=== PATIENT | female | born 1975 | race Caucasian/White ===

== ENCOUNTER → 2018-04-29 14:56 | Outpatient (CLI) | payer OTHER, SELFPAY ==
--- NOTE | 2018-04-29 15:02 | BI_ITS ---
MAMMOGRAPHY - BILATERAL SCREENING REASON FOR EXAM: Female, 42 years old. Routine annual screening examination. PERTINENT HISTORY: Mother with breast cancer. Remote left stereotactic breast biopsies. TECHNIQUE: Digital bilateral breast thea (3D mammographic acquisition) in the CC and MLO projections. 2-D mediolateral oblique (MLO) and craniocaudad (CC) views of both breasts were obtained. CAD: Full Field Digital Mammography with Computer Added Detection was performed. COMPARISON: Comparison is made with prior study dated April 19, 2017 and April 15, 2016. FINDINGS: Breast Composition: The breasts are heterogeneously dense, which may obscure small masses. There are no dominant masses or suspicious calcifications. No other significant abnormalities are identified. There has been no significant change since the prior study. BI/SCREENING MAMM (CAD), BILAT IMPRESSION: Stable bilateral screening mammogram. Yearly follow-up mammogram recommended. (A) ASSESSMENT CATEGORY: BIRADS Category 1: Negative. A letter regarding these results will be sent to the patient by the facility within 30 days. Approximately 10% of breast cancers are not detected by mammography. A normal mammogram should not delay biopsy of a clinically suspicious abnormality. [id number] Electronically Signed: Kenny Trinh MD at 7:59 EDT Tel [phone], Service support ,
== END ==
PROVIDERS: Family Provider Family Medicine; PCP Family Medicine; Visit Provider Obstetrics & Gynecology
DX: Z12.31 Encounter for screening mammogram for malignant neoplasm of breast (principal)
CPT/HCPCS: 77063; 77067

== ENCOUNTER → 2018-05-12 10:10 | Outpatient (CLI) | payer OTHER, SELFPAY ==
[2018-05-18 11:45] LABS: HPV Reflexed? NOT INDICATED
== END ==
PROVIDERS: Visit Provider Obstetrics & Gynecology
DX: Z12.4 Encounter for screening for malignant neoplasm of cervix (principal)
CPT/HCPCS: 88175; G0145

== ENCOUNTER → 2019-05-11 16:41 | Outpatient (CLI) | payer OTHER, SELFPAY ==
--- NOTE | 2019-05-11 16:44 | BI_ITS ---
MAMMOGRAPHY - BILATERAL SCREENING REASON FOR EXAM: Female, 43 years old. Routine annual screening examination. PERTINENT HISTORY: Mother with breast cancer. Remote left stereotactic breast biopsy. TECHNIQUE: Digital bilateral breast jess (3D mammographic acquisition) in the CC and MLO projections. 2-D mediolateral oblique (MLO) and craniocaudad (CC) views of both breasts were obtained. CAD: Full Field Digital Mammography with Computer Added Detection was performed. COMPARISON: Comparison is made with prior study dated April 29, 2018 and April 22, 2017. FINDINGS: Breast Composition: The breasts are heterogeneously dense, which may obscure small masses. There are no dominant masses or suspicious calcifications. No other significant abnormalities are identified. There has been no significant change since the prior study. BI/SCREEN MAMM (CAD) W/JESS BILAT IMPRESSION: Stable bilateral screening mammogram. Yearly follow-up mammogram recommended. (A) ASSESSMENT CATEGORY: BIRADS Category 1: Negative. A letter regarding these results will be sent to the patient by the facility within 30 days. Approximately 10% of breast cancers are not detected by mammography. A normal mammogram should not delay biopsy of a clinically suspicious abnormality. [id number] Electronically Signed: Kenny Trinh, at 9:30 EDT , Service support ,
== END ==
PROVIDERS: Referring Provider Obstetrics & Gynecology; Visit Provider Obstetrics & Gynecology
DX: Z12.31 Encounter for screening mammogram for malignant neoplasm of breast (principal)
CPT/HCPCS: 77063; 77067

== ENCOUNTER → 2020-09-27 13:10 | Outpatient (CLI) | payer OTHER, SELFPAY ==
--- NOTE | 2020-09-27 13:18 | BI_ITS ---
MAMMOGRAPHY - BILATERAL SCREENING REASON FOR EXAM: Female, 44 years old. Routine annual screening examination. PERTINENT HISTORY: Mother had breast cancer age 48 patient had left stereotactic breast biopsy 2008 TECHNIQUE: Digital bilateral breast jess (3D mammographic acquisition) in the CC and MLO projections. 2-D mediolateral oblique (MLO) and craniocaudad (CC) views of both breasts were obtained. CAD: Full Field Digital Mammography with Computer Added Detection was performed. COMPARISON: Previous mammograms obtained on 05/11/2019 FINDINGS: Breast Composition: Scattered There are no dominant masses or suspicious calcifications. No other significant abnormalities are identified. BI/SCREEN MAMM (CAD) W/JESS BILAT IMPRESSION: Stable bilateral screening mammogram. Yearly follow-up mammogram recommended. (A) ASSESSMENT CATEGORY: BIRADS Category 1: Negative. A letter regarding these results will be sent to the patient by the facility within 30 days. Approximately 10% of breast cancers are not detected by mammography. A normal mammogram should not delay biopsy of a clinically suspicious abnormality. [id number] Electronically Signed: Ponce Navarro, at 16:58 EST Tel , Service support ,
== END ==
PROVIDERS: Referring Provider Obstetrics & Gynecology; Visit Provider Obstetrics & Gynecology
DX: Z12.31 Encounter for screening mammogram for malignant neoplasm of breast (principal); Z80.3 Family history of malignant neoplasm of breast
CPT/HCPCS: 77063; 77067

== ENCOUNTER → 2020-10-10 14:03 | Outpatient (CLI) | payer OTHER, SELFPAY ==
[2020-10-15 14:02] LABS: HPV Reflexed? NOT INDICATED
== END ==
PROVIDERS: Visit Provider Obstetrics & Gynecology
DX: Z12.4 Encounter for screening for malignant neoplasm of cervix (principal)
CPT/HCPCS: 88175; G0145

== ENCOUNTER 2021-11-13 12:46 | Outpatient (CLI) | payer OTHER, SELFPAY ==
--- NOTE | 2021-11-13 12:49 | BI_ITS ---
MAMMOGRAPHY - BILATERAL SCREENING REASON FOR EXAM: Female, 45 years old. Routine annual screening examination. PERTINENT HISTORY: Mother with breast cancer. Remote left stereotactic breast biopsy. TECHNIQUE: Digital bilateral breast jess (3D mammographic acquisition) in the CC and MLO projections. 2-D mediolateral oblique (MLO) and craniocaudad (CC) views of both breasts were obtained. CAD: Full Field Digital Mammography with Computer Added Detection was performed. COMPARISON: Comparison is made with prior study dated 09/27/2020 and 05/11/2019. FINDINGS: Breast Composition: There are scattered areas of fibroglandular density. There are no dominant masses or suspicious calcifications. No other significant abnormalities are identified. There has been no significant change since the prior study. BI/SCRN MAMM (CAD)W/JESS BILAT IMPRESSION: Stable bilateral screening mammogram. Yearly follow-up mammogram recommended. (A) ASSESSMENT CATEGORY: BIRADS Category 1: Negative. A letter regarding these results will be sent to the patient by the facility within 30 days. Approximately 10% of breast cancers are not detected by mammography. A normal mammogram should not delay biopsy of a clinically suspicious abnormality. [id number] Electronically Signed: Kenny Trinh MD at 13:44 EST , Service support ,
== END 2021-11-13 23:59 | disposition short-term general hospital (02) ==
LOC: OPBI 12:47
PROVIDERS: Referring Provider Obstetrics & Gynecology; Visit Provider Obstetrics & Gynecology
DX: Z12.31 Encounter for screening mammogram for malignant neoplasm of breast (principal)
CPT/HCPCS: 77063; 77067

== ENCOUNTER → 2025-05-14 | Outpatient (CLI) | payer OTHER, SELFPAY ==
--- NOTE | 2025-05-14 11:09 | RAD_ITS ---
PROCEDURE: ABDOMEN SINGLE VIEW 05/14/2025 REASON FOR EXAM: CALCULUS OF LOWER URINARY TRACT TECHNIQUE: 3 frontal views of the abdomen were obtained in order to include the entire abdomen on the study. COMPARISON: None FINDINGS: A small to moderate amount of stool and gas is present throughout a nondistended colon. No free air is seen. Please note however that free air could be obscured on a supine view. If free air is suspected, a lateral decubitus or upright film is recommended. Psoas muscles and renal outlines are partially obscured by overlying bowel gas and fecal material within the colon. There is a 5 mm calcific density identified just inferior to the L3 right transverse process. This could represent a ureteral stone. There is a 3 mm calcific density identified overlying the mid to lower pole of the left kidney. This could represent a renal stone. No abnormal calcific densities are seen in the pelvis. There is subtle irregularity involving the lateral anterior tip of the right 9th rib. This is believed to represent summation artifact. Clinical correlation is recommended. Degenerative changes of both hips are noted. Lumbar spine appears unremarkable. RAD/Abdomen Single View IMPRESSION: There is a 5 mm calcific density identified just inferior to the L3 right trans verse process. This could represent a ureteral stone. There is a 3 mm calcific density identified overlying the mid to lower pole of the left kidney. This could represent a renal stone. Reading Location: [id number]
== END | disposition home or self-care (01) ==
LOC: RAD 10:54
PROVIDERS: Referring Provider Urology; Visit Provider Urology
DX: N21.9 Calculus of lower urinary tract, unspecified (principal)
CPT/HCPCS: 74018

== ENCOUNTER 2025-05-16 12:38 | Day surgery (SDC) | payer OTHER, SELFPAY ==
[2025-05-16] VITALS (9 sets, daily range): BP systolic 108–164; BP diastolic 83–109; PULSE 74–86; RESP 16–18; TEMP 36.3–37.3; O2SAT 96–100; BMI 40.6
--- NOTE | 2025-05-16 12:47 | RAD_ITS ---
EXAM: XR Abdomen, 1 View CLINICAL INDICATION: PRE-OP TECHNIQUE: Frontal supine view of the abdomen/pelvis. COMPARISON: No relevant prior studies available. FINDINGS: GASTROINTESTINAL TRACT: Unremarkable. No dilation. ORGANS: 5 mm calculus over the right renal region. 6 mm calculus of the left renal region. BONES/JOINTS: Unremarkable. No acute fracture. RAD/Abd Inc Decub and/or Erect IMPRESSION: Probable bilateral nephrolithiasis. Reading Location: [facility]
--- NOTE | 2025-05-16 13:48 | PRE.ANES_ITS ---
ASA Classification* ASA Classification ASA Classification: 3 Assessment & Plan Anesthesia* Anesthesia Assessment Anesthesia Assessment: Discussed sedation and/or anesthesia options, risks, benefits, and alternatives with patient/parents/legal guardian/POA. Questions invited. The patient/parents/legal guardian/POA seems to understand and agrees to proceed with anesthesia plan. Reviewed the physical assessment, medical history, allergy history and patient home medications list prior to surgery/procedure/anesthetic and documented any changes. Performed airway and anesthesia risk assessments. Anesthesia Type Anesthesia Type: General History Source History Obtained from:: Patient and Chart Anesthesia Focused Assessment* Temperature: 98.4 F Pulse Rate: 74 Blood Pressure: 136/92 Respiratory Rate: 18 Pulse Ox: 100 Oxygen Delivery Method: Room Air Airway Assessment Mouth opens: 2 cm Mallampati Score: II Teeth Condition: Intact Labs Anesthesia Preop lab: CBC CHEMISTRY COAG Urine Test Negative Negative 05/16/25 13:00 05/16/25 Pre-Assessment Diagnosis/Proposed Procedure Planned Operative Procedure(s): RIGHT ESWL Anesthesia History Anesthesia History - senior occupational therapist: Anesthesia History - senior occupational therapist Hx Hospitalization No 05/14/25 12:15 Any Problems With Anesthesia No 05/14/25 12:15 Cholinesterase deficiency No 05/14/25 12:15 You/Your Family Experience No 05/14/25 12:15 fever (hyperthermia) with Relationship Recent Exposure to Contagious Disease Does patient have nerve No 05/14/25 12:15 stimulator Patient instructed to have device shut off --Does patient have Pacemaker or ICD? When Was Last Pacemaker Check QUESTION #4 FULL TEXT: You/Your Family Experience fever (hyperthermia) with Anesthesia Last Oral Intake Last Oral intake: Last Oral Intake NPO since Meds taken in AM with sips of water? Meds patient instructed to take am of surgery PONV PONV - senior occupational therapist: PONV - senior occupational therapist Female Yes 05/14/25 12:15 HX of Motion Sickness No 05/14/25 12:15 HX of N/V After Surgery No 05/14/25 12:15 Non-Smoker Yes 05/14/25 12:15 Duration of Surgery greater No 05/14/25 12:15 than 60 minutes Number of Risk Factors 2 05/14/25 12:15 PONV Score Moderate Risk 05/14/25 12:15 Respiratory Assessment Respiratory Assessment - senior occupational therapist: Respiratory Tract Infection Hx - senior occupational therapist Hx Respiratory Tract Infection No 05/14/25 12:15 STOP Sleep Apnea STOP Sleep Apnea - senior occupational therapist: STOP Sleep Apnea - senior occupational therapist Hx Hypertension Yes: CONTROLLED ON MED 05/14/25 12:15 Hx Sleep Apnea No 05/14/25 12:15 CPAP BIPAP Do you snore loudly (louder Yes 05/14/25 12:15 than talking or can be heard Do you often feel tired/ No 05/14/25 12:15 fatigued/ sleepy during daytime? Has anyone observed you stop No 05/14/25 12:15 breathing during sleep? STOP Results Positive 05/14/25 12:15 QUESTION #5 FULL TEXT : Do you snore loudly (louder than talking or can be heard through closed doors)? Tobacco Use History Tobacco Use History - senior occupational therapist: Tobacco Use History - senior occupational therapist Tobacco Use Smoking Status Never smoker 05/14/25 12:15 Hx Tobacco Use No 05/14/25 12:15 Years Smoking Packs Smoked per Day Smoking Cessation Date was within the last 15 years Hx Smoking Cessation Date Hx Smoking Cessation Counseling Hematologic Medial History Hematologic Hx - senior occupational therapist: Hematologic Medical Hx - senior oracle dba Hx of Blood Transfusion No 05/14/25 12:15 Hx of Transfusion in last 3 No 05/14/25 12:15 Months Date of Last Transfusion (if within last 3 months) Ever experience any problems No 05/14/25 12:15 with transfusion(s)? Specify any problems Hx of Preganancy in last 3 No 05/14/25 12:15 Months Nurse Filling Out Transfusion VCHRISTIN 05/14/25 12:15 & Questions: Date: 05/14/25 05/14/25 12:15 Time: 12:16 05/14/25 12:15 Patient unable to answer at this time (ie. confused, unrespo /Reproduction History /Reproductive History - senior occupational therapist: /Reproductive Hx- senior occupational therapist Hx Now No 05/14/25 12:15 Gestational Age (in weeks): EDC: Hx Hx Para Hx Section SAB No 05/14/25 12:15 Active Medications Active Medications: Current Medications Generic Name Dose Route Start Last Admin Trade Name Freq PRN Reason Stop Dose Admin Cefazolin Sodium 2 gm/ Sodium 110 mls @ 200 mls/hr 05/16/25 13:35 Chloride IV 05/16/25 14:07 INTRAOP ONE Lactated Ringer's 1,000 mls @ 15 mls/hr 05/16/25 13:00 IV .Q48H [facility] PFSH Medical History (Updated 05/14/25 @ 12:14 by Louann Ryan) Kidney stones Non-smoker Hypertension Home Medications ?Medication ?Instructions ?Recorded ?Last Taken ?Type amlodipine 5 mg tablet 5 mg PO DAILY 05/14/25 Unkno wn History atorvastatin 10 mg tablet 10 mg PO DAILY 05/14/25 Unkn own History cholecalciferol (vitamin D3) 50 50 mcg PO DAILY Unknown History mcg (2,000 unit) capsule oxycodone-acetaminophen 5 mg-325 1 tab PO Q6H PRN PRN pain 05/14/25 Unknown History mg tablet psyllium husk 0.4 gram capsule 0.8 g PO DAILY 05/14/25 Unknown History (Daily Fiber) Allergy/AdvReac Type Severity Reaction Status Date / Time No Known Allergies Allergy Verified 05/16/25 13:49 Surgical History (Updated 05/14/25 @ 12:14 by Louann Ryan) Hx of removal of cyst Hx of section Hx of hernia repair Social History Smoking Status: Never smoker Review of Systems (Anesthesia) ROS Narrative System reviewed and no additional complaints, except as documented.
[2025-05-16] MEDS: Lactated Ringers 1,000 ML 15 ML IV (13:58)
[2025-05-16 14:35] LABS: Internal QC Validated? YES +Cl - CLEAR BKGD; Pregnancy, Urine Negative Negative; Record Kit Lot#,Urine Preg 962302
--- NOTE | 2025-05-16 15:46 | HP.PCM_ITS ---
HPI - General General Date of Service: 05/16/25 Chief Complaint: Right ureteral calculi HPI Narrative GOPAL CHAPPELL, is a 49 F who presents for treatment of a right kidney stone with shockwave lithotripsy and stent placement [facility] Medical History (Updated 05/16/25 @ 15:[address] Neeraj Wilson MD) Kidney stones Non-smoker Hypertension Home Medications ?Medication ?Instructions ?Recorded ?Last Taken ?Type amlodipine 5 mg tablet 5 mg PO DAILY 05/14/25 Unkno wn History atorvastatin 10 mg tablet 10 mg PO DAILY 05/14/25 Unkn own History cholecalciferol (vitamin D3) 50 50 mcg PO DAILY Unknown History mcg (2,000 unit) capsule oxycodone-acetaminophen 5 mg-325 1 tab PO Q6H PRN PRN pain 05/14/25 Unknown History mg tablet psyllium husk 0.4 gram capsule 0.8 g PO DAILY 05/14/25 Unknown History (Daily Fiber) ciprofloxacin HCl 500 mg tablet 500 mg PO BID #6 tabs 05/16/25 Unknown Rx (Cipro) oxycodone 5 mg tablet 5 mg PO Q6H PRN pain 3 days #14 05/16/25 Unknown Rx tabs Allergy/AdvReac Type Severity Reaction Status Date / Time No Known Allergies Allergy Verified 05/16/25 13:49 Surgical History (Updated 05/14/25 @ 12:14 by Louann Ryan) Hx of removal of cyst Hx of section Hx of hernia repair Social History Smoking Status: Never smoker Vital Signs Vital Signs Vital Signs: 05/16/25 13:52 05/16/25 13:52 05/16/25 14:41 Temperature 98.4 F 98.4 F Temperature Source Temporal Pulse Rate 74 74 Respiratory Rate 18 18 Respiratory Pattern Normal Blood Pressure 136/92 H 136/92 H Blood Pressure Mean 106 Blood Pressure Source Monitor Blood Pressure Position Sitting Blood Pressure Location Left Forearm Pulse Ox 100 100 Oxygen Delivery Method Room Air Room Air Weight Weight: 125 kg Body Mass Index (BMI) 40.6 Results Lab / Micro Data Labs: Laboratory Results - last 24 hr 05/16/25 13:00: Urine Test Negative Imaging Radiology Impression Abdomen X-Ray 05/16/25 12:47 IMPRESSION: Probable bilateral nephrolithiasis. Reading Location: [facility]
--- NOTE | 2025-05-16 15:46 | DCINST_ITS ---
Discharge Instructions DC O2, CPAP, BIPAP needs Home O2 Discharge instructions: No Dressing / Incision Discharge Activity: Return to Normal Activity and May Not Drive (while taking narcotic pain medications.) Dressing / Incision Call your doctor if you observe: Fever of 101 or Higher Follow Up Care Please Follow Up With: Neeraj Wilson MD When: Call [phone] for an appointment Test Results: Test results from this visit will be discussed in further detail at your follow- up appointment, if applicable. Discharge Plan Admission Primary Reason for Your Visit: kidney stone Attending Provider: Neeraj Wilson Primary Care Provider: Huy Chaudhari Instructions Print Language: Citizen Of [place] Discharge Orders/Prescriptions Prescriptions: New oxycodone 5 mg tablet 5 mg PO Q6H PRN (Reason: pain) 3 Days Qty: 14 0RF ciprofloxacin HCl [Cipro] 500 mg tablet 500 mg PO BID Qty: 6 0RF Continued atorvastatin 10 mg tablet 10 mg PO DAILY amlodipine 5 mg tablet 5 mg PO DAILY cholecalciferol (vitamin D3) 50 mcg (2,000 unit) capsule 50 mcg PO DAILY psyllium husk [Daily Fiber] 0.4 gram capsule 0.8 g PO DAILY oxycodone-acetaminophen 5-325 mg tablet 1 tab PO Q6H PRN PRN (Reason: pain) Referrals / Follow Up: Neeraj Wilson MD [Med Staff - Active Staff] - Care Physician,No Primary [Non-Staff] - Disposition Disposition (needs filled in before D/C Order can be placed): Home, Self Care
--- NOTE | 2025-05-16 15:47 | PCM.OPRPT ---
Operative Report (Standard) Operative Information Date of Procedure: 05/16/25 Pre-Operative Diagnosis: Right mid ureteral calculi with obstruction Post-Operative Diagnosis: Same Surgery/Procedure Performed: Cystoscopy right stent placement right extracorporeal shockwave lithotripsy semiconductor packages leak tester: No Type of Anesthesia: General RN Documented Start/Stop Times: Operation Date: 05/16/25 14:45 Case Time Into Pre-Op 05/16/25 12:59 Out of Pre-Op 05/16/25 14:43 Anesthesia Start 05/16/25 14:44 Into Room 05/16/25 14:44 Procedure Start 05/16/25 14:55 Procedure Start Time: 14:55 Procedure Stop Time: 15:47 Select all DRAINS/GRAFTS/IMPLANTS that apply: Drains Drain details: right stent Estimated Blood Loss: None Specimen collected: No Description of surgery: Patient presents to the hospital for treatment of a kidney stone with shockwave lithotripsy. In the preoperative area and x-ray was done to confirm the location of the stone. The x-ray was reviewed and the stone location was reviewed. In the preoperative setting I spoke with the patient regarding the treatment of the stone how the treatment would be conducted and the expectations after surgery. The patient understands there is a risk of bleeding and infection. Also discussed the very rare risk of hematoma or damage to the kidney. We also discussed the risk that the shockwave machine will fail to break the stone adequately and that the patient may need other surgical procedures. I also discussed the possibility that the patient may need a stent after the procedure. After reviewing the procedure with the patient, the patient is signed the consent form all the patient's questions were addressed and was taken back to the operating room for treatment of a kidney stone. Patient was taken back to the operating room, the patient was identified by the nursing staff, I identified the side of the treatment and the patient side of treatment had been marked by my initials. The patient underwent general anesthetic and was placed supine on the lithotripter table. I then used fluoroscopy to identify the stone on the right side. I then positioned the patient under the lithotripter and I used triangulation technique to identify the location of the stone and then I made sure that the stone was engaged in the F2 focal point of F2 Donier lithoprior machine. Once the patient was positioned appropriately and the stone was identified and placed in the F2 focal point of the lithotripter machine I then proceeded with shockwave lithotripsy. Then during the procedure we did a cystoscopy and right stent placement to facilitate finding of the stone and also facilitate passing of the fragments the stone was not breaking until we put a stent in. In the beginning the shockwave was delivered at a rate of 90 shocks per minute, anesthesia monitored the EKG for any ectopy. The power was slowly increased to 5 kV and subsequently at the 7 kV. I then proceeded with the treatment with shock wave therapy and around during the treatment to make sure the stone stayed in the F2 focal point during the entire treatment and after 4000 shockwaves were delivered to the stone under fluoroscopic guidance the treatment was completed. The patient was given instructions to call the office to make an a follow-up appointment with an x-ray to evaluate the success of the treatment, patient understands that its possible the stones may need another procedure. At this point the patient's anesthetic was reversed patient was extubated and taken back to the PACU in stable condition. Surgical Findings: Stone in the mid right ureter with treated with shockwave lithotripsy and stent placed Complications Complications: No Admit VTE Documentation VTE Present on Admission: No VTE Mechan Device Prophylaxis: SCD's VTE Pharm Prophylaxis ordered?: No
--- NOTE | 2025-05-16 16:02 | PCM.POST.ANE ---
Anesthesia: Postop Eval I Current Vital Signs Temperature: 99.0 F Pulse Rate: 86 Blood Pressure: 136/83 Respiratory Rate: 18 Pulse Ox: 96 Oxygen Delivery Method: Room Air Assessment Airway patent: Yes Spontaneous unlabored respirations: Yes Mental status: Awake and Calm nausea: No Vomiting: No Anesthesia Complication: No Fluid Hydration Crystalloid volume administer (ml): 900 Total IV fluid infused: 900 Progress Note Anesthesia document: Postop Eval 1 completed: Yes
[2025-05-16] MEDS: Ketorolac 30 MG/ML Syringe IV (16:10)
--- NOTE | 2025-05-16 16:31 | POSTOPAN2_ITS ---
Anesthesia Postop Eval I Sum Postop Eval Completion status Anesthesia document: Postop Eval 1 completed: Yes Anesthesia Postop Eval I Summary Anesthesia Postop Eval I Summary: Anesthesia Postop Eval I: Assessment Summary Airway patent Yes 05/16/25 16:02 FABRICS AND MATERIAL CUTTER.[email or web address] Spontaneous unlabored Yes 05/16/25 16:02 FABRICS AND MATERIAL CUTTER.ABAR respirations Mental status Awake,Calm 05/16/25 16:02 FABRICS AND MATERIAL CUTTER.ABAR nausea No 05/16/25 16:02 FABRICS AND MATERIAL CUTTER.ABAR Vomiting No 05/16/25 16:02 FABRICS AND MATERIAL CUTTER.ABAR Anesthesia Postop Eval I: Fluid Summary Crystalloid volume administer 900 05/16/25 16:02 FABRICS AND MATERIAL CUTTER.ABAR (ml) Colloids volume administered ( ml) Blood Product volume administered (ml) Total IV fluid infused 900 05/16/25 16:02 FABRICS AND MATERIAL CUTTER.ABAR Anesthesia Postop Eval I: Summary Notes Anesthesia Complication No 05/16/25 16:02 FABRICS AND MATERIAL CUTTER.ABAR Anesthesia Complication Comment: Post-operative progress note Anesthesia: Postop Eval II Evaluation Mental status: Awake and Calm Pain Level: 2 nausea: No Vomiting: No Complications Anesthesia Complication: No
--- NOTE | 2025-05-16 16:31 | PCM.POSTANE2 ---
Anesthesia Postop Eval I Sum Postop Eval Completion status Anesthesia document: Postop Eval 1 completed: Yes Anesthesia Postop Eval I Summary Anesthesia Postop Eval I Summary: Anesthesia Postop Eval I: Assessment Summary Airway patent Yes 05/16/25 16:02 BACK HOE OPERATOR.ABAR Spontaneous unlabored Yes 05/16/25 16:02 BACK HOE OPERATOR.ABAR respirations Mental status Awake,Calm 05/16/25 16:02 BACK HOE OPERATOR.ABAR nausea No 05/16/25 16:02 BACK HOE OPERATOR.ABAR Vomiting No 05/16/25 16:02 BACK HOE OPERATOR.ABAR Anesthesia Postop Eval I: Fluid Summary Crystalloid volume administer 900 05/16/25 16:02 BACK HOE OPERATOR.ABAR (ml) Colloids volume administered ( ml) Blood Product volume administered (ml) Total IV fluid infused 900 05/16/25 16:02 BACK HOE OPERATOR.ABAR Anesthesia Postop Eval I: Summary Notes Anesthesia Complication No 05/16/25 16:02 BACK HOE OPERATOR.ABAR Anesthesia Complication Comment: Post-operative progress note Anesthesia: Postop Eval II Evaluation Mental status: Awake and Calm Pain Level: 2 nausea: No Vomiting: No Complications Anesthesia Complication: No
--- OUTSIDE RECORDS SUMMARY | 2025-05-16 22:46 | XMS RPT_ITS | CCD ---
Author Organization [facility] Care Team Providers Care Refrigeration System Installer Name Role Phone HUY DONALD DO Primary Care Physician Lester PTAlmita Unavailable Unavailable Rahul TEMPERATURE CONTROL INSPECTOR-CYCLE DIRECTORMarie Primary Care Provider MARIE GARG Referring Unava ilable MARIE GARG Primary Care Unava ilable HUY DONALD DO Attending Unavailable ODILON WONG, HUY Hawley Primary Care Unavailable HUY DONALD DO Attending Unavailable HUY DONALD DO Primary Care Unavailable HUY DONALD DO Attending Unavailable HUY DONALD DO Primary Care Unavailable HUY DONALD DO Attending Unavailable DONALD DO, HUY Marleen Primary Care Unavailable DONALD DO, HUY Hawley Attending Unavailable DONALD DO, HUY Marleen Primary Care Unavailable SOFIA MARCUS MD Attending Unavailable ODILON WONG, HUY Hawley Primary Care Unavailable SOFIA MARCUS MD Attending Unavailable ODILON WONG, HUY Hawley Primary Care Unavailable ODILON WONG, HUY Hawley Attending Unavailable DONALD DO, HUY E Primary Care Unavailable ODILON WONG, HUY E Primary Care Unavailable JIE FERNANDEZ MD Attending Unavailable DONADL DO, HUY Hawley Attending Unavailable ODILON WONG, HUY Marleen Primary Care Unavailable SOFIA MARCUS Consulting Unavailable SOFIA MARCUS Attending Unavailable DONALD DO, HUY E Primary Care Unavailable Care Physician, No Primary Primary Care Provider Unavailable Katie WING, Dr. Neeraj Persaud Attending Provider 1( [phone] Dr. Neeraj Smith MD Referring Provider 1( [phone] Dr. Huy Donald DO Primary Care Provider Allergies Allergy Classification Reported Allergen(s) Allergy Type Date of Onset Reaction(s) Facility (1 source) ALLERGIES NOT ON FILE; Translations: [ALLERGIES NOT ON FILE] Propensity to adverse reactions (disorder) [facility] Medications Current Medications Medication Drug Class(es) Dates Sig (Normalized) Sig (Original) acetaminophen 325 mg / HYDROcodone bitartrate 5 mg oral tablet (1 source) Opioid Agonist Start: 07-13-2024 End: 07-18-2024 [place] 325- 5 mg oral tablet Dose = 1 tab(s), Oral, q4h, PRN Pain, scale 1-6, X 5 day(s), # 12 tab(s), 0 Refill(s), [id number], Acute post-operative pain, 175, cm, 07/13/24 11:04:00 EDT, Height, 118.8, kg, 07/13/24 11:04:00 EDT, Dosing Weight Start Date: 07/13/24 Stop Date: 07/18/24 Status: Ordered acetaminophen 325 mg / oxyCODONE hydrochloride 5 mg oral tablet (2 sources) Opioid Agonist Start: 05-14-2025 Oxycodone-Acetamin ophen 5-325 mg tablet Active 1 {tbl} PO EVERY 6 HOURS NEEDED as needed for pain May 14, 2025 12:00am Start: 05-08-2025 End: 05-11-2025 take 1 tablet by mouth every six hours as needed for pain Percocet 5 mg-325 mg oral tablet Dose = 1 tab(s), Oral, q6h, PRN for pain, X 3 day(s), # 12 tab(s), 0 Refill(s), [id number], Right ureteral stone, 175.3, cm, 05/07/25 22:27:00 EDT, Height, 128, kg, 05/07/25 22:27:00 EDT, Dosing Weight Start Date: 05/08/25 Stop Date: 05/11/25 Status: Ordered Quantity: 12.0 Unit: tab(s) Repeat number: 1 Indications: Calculus of ureter; amLODIPine 5 mg oral tablet (7 sources) Dihydropyridine Calcium Channel Addie Start: 05-14-2025 take 1 tablet by mouth once daily Amlodipine 5 mg tablet Active 5 mg PO DAILY May 14, 2025 12:00am Start: 03-06-2025 amLODIPine 5 m g oral tablet Dose : 5 mg = 1 tab(s), Oral, qDay, # 100 tab(s), 1 Refill(s), Pharmacy: [facility]/pharmacy #[id number], HTN (hypertension), 173.2, cm, 03/06/25 9:22:00 EDT, Height, kg, 03/06/25 9:22:00 EDT, Dosing Weight Start Date: 03/06/25 Status: Ordered Quantity: 100.0 Unit: tab(s) Repeat number: 2 Indications: Essential (primary) hypertension; Start: 07-04-2024 amLODIPine 5 m g oral tablet Dose : 5 mg = 1 tab(s), Oral, qDay, # 100 tab(s), 1 Refill(s), Pharmacy: [facility]/pharmacy #[id number], HTN (hypertension), 175, cm, 07/04/24 9:13:00 EDT, Height, kg, 07/04/24 9:04:00 EDT, Dosing Weight Start Date: 07/04/24 Status: Ordered Start: 05-09-2024 amLODIPine 5 m g oral tablet Dose : 5 mg = 1 tab(s), Oral, qDay, # 100 tab(s), 0 Refill(s), Pharmacy: [facility]/pharmacy #[id number], HTN (hypertension), 172, cm, 05/09/24 10:13:00 EDT, Height, kg, 05/09/24 10:06:00 EDT, Dosing Weight Start Date: 05/09/24 Status: Ordered Start: 03-02-2024 End: 04-01-2024 amLODIPine 5 mg oral tablet Dose : 5 mg = 1 tab(s), Oral, qDay, # 30 tab(s), 0 Refill(s), Pharmacy: [facility]/pharm[facility] #[id number], HTN (hypertension), 172, cm, 01/17/24 9:30:00 EDT, Height, kg, 01/17/24 9:30:00 EDT, Dosing Weight Start Date: 03/02/24 Status: Ordered atorvastatin 10 mg oral tablet (8 sources) HMG-CoA Reductase Inhibitor Start: 05-14-2025 take 1 tablet by mouth once daily Atorvastatin 10 mg tablet Active 10 mg PO DAILY May 14, 2025 12:00am Start: 03-06-2025 atorvastatin 1 0 mg oral tablet Dose : 10 mg = 1 tab(s), Oral, qDay, # 100 tab(s), 0 Refill(s), [id number], Pure hypercholesterolemia Heterozygous familial hypercholesterolemia, 173.2, cm, 03/06/25 9:22:00 EDT, Height, kg, 03/06/25 9:22:00 EDT, Dosing Weight Start Date: 03/06/25 Status: Ordered Quantity: 100.0 Unit: tab(s) Repeat number: 1 Indications: Familial hypercholesterolemia; Pure hypercholesterolemia, unspecified; Start: 07-04-2024 atorvastatin 1 0 mg oral tablet Dose : 10 mg = 1 tab(s), Oral, qDay, # 100 tab(s), 1 Refill(s), [id number], Pure hypercholesterolemia Heterozygous familial hypercholesterolemia, 175, cm, 07/04/24 9:13:00 EDT, Height, kg, 07/04/24 9:04:00 EDT, Dosing Weight Start Date: 07/04/24 Status: Ordered Start: 05-09-2024 atorvastatin 1 0 mg oral tablet Dose : 10 mg = 1 tab(s), Oral, qDay, # 100 tab(s), 1 Refill(s), [id number], Pure hypercholesterolemia Heterozygous familial hypercholesterolemia, 172, cm, 05/09/24 10:13:00 EDT, Height, kg, 05/09/24 10:06:00 EDT, Dosing Weight Start Date: 05/09/24 Status: Ordered Start: 10-15-2023 atorvastatin 1 0 mg oral tablet Dose : 10 mg = 1 tab(s), Oral, qDay, # 90 tab(s), 1 Refill(s), [id number], Pure hypercholesterolemia Heterozygous familial hypercholesterolemia, 172, cm, 10/15/23 9:54:00 EST, Height, kg, 10/15/23 9:54:00 EST, Dosing Weight Start Date: 10/15/23 Status: Ordered Start: 08-11-2023 atorvastatin 1 0 mg oral tablet Dose : 10 mg = 1 tab(s), Oral, qDay, # 90 tab(s), 0 Refill(s), Pharmacy: [id number], Pure hypercholesterolemia Heterozygous familial hypercholesterolemia, 172, cm, 07/16/23 11:27:00 EDT, Height, kg, 01/21/23 8:31:00 EDT, Dosing Weight Start Date: 08/11/23 Status: Ordered Start: 07-16-2023 atorvastatin 1 0 mg oral tablet Dose : 10 mg = 1 tab(s), Oral, qDay, # 30 tab(s), 0 Refill(s), Pharmacy: [facility] #[id number], Pure hypercholesterolemia Heterozygous familial hypercholesterolemia, 172, cm, 07/16/23 11:27:00 EDT, Height, kg, 01/21/23 8:31:00 EDT, Dosing Weight Start Date: 07/16/23 Status: Ordered cholecalciferol 0.05 mg oral capsule (1 source) Vitamin D Start: 05-14-2025 take 1 capsule by mouth once daily Cholecalciferol (Vitamin D3) 50 mcg (2,000 unit) capsule Active 50 ug PO DAILY May 14, 2025 12:00am ciprofloxacin 500 mg oral tablet (1 source) Quinolone Antimicrobial Start: 05-16-2025 take 1 tablet by mouth twice daily Ciprofloxacin Hcl (Cipro) 500 mg tablet Active 500 mg PO TWICE A DAY 6 May 16, 2025 12:00am cyclobenzaprine hydrochloride 5 mg oral tablet (1 source) Muscle Relaxant Start: 07-16-2023 End: 07-26-2023 cyclobenzaprine 5 mg oral tablet Dose : 5 mg = 1 tab(s), Oral, TID, NOTE!: Only if Skelaxin not covered by insurance!, X 10 day(s), # 30 tab(s), 0 Refill(s), 07/26/23 12:08:00 PM EDT, Pharmacy: [facility] #[id number], Right flank pain, 172, cm, 07/16/23 11:27:00 EDT, Height, kg, 01/21/23 8:31:00 EDT, Dosing Weight Start Date: 07/16/23 Stop Date: 07/26/23 Status: Ordered metaxalone 800 mg oral tablet (1 source) Start: 07-16-2023 End: 07-26-2023 Skelaxin 800 mg oral tablet Dose : 800 mg = 1 tab(s), Oral, TID, X 10 day(s), # 30 tab(s), 0 Refill(s), 07/26/23 12:08:00 PM EDT, Pharmacy: [facility] #[id number], Right flank pain, 172, cm, 07/16/23 11:27:00 EDT, Height, kg, 01/21/23 8:31:00 EDT, Dosing Weight Start Date: 07/16/23 Stop Date: 07/26/23 Status: Ordered ondansetron 4 mg oral tablet (1 source) Serotonin-3 Receptor Antagonist Start: 05-08-2025 End: 05-13-2025 Zofran 4 mg oral tablet Dose : 4 mg = 1 tab(s), Oral, q8h, PRN Nausea/Vomiting, X 5 day(s), # 12 tab(s), 0 Refill(s), 05/13/25 12:01:00 AM EDT, Pharmacy: [facility] #[id number], 175.3, cm, 05/07/25 22:27:00 EDT, Height, kg, 05/07/25 22:27:00 EDT, Dosing Weight Start Date: 05/08/25 Stop Date: 05/13/25 Status: Ordered Quantity: 12.0 Unit: tab(s) Repeat number: 1 oxyCODONE hydrochloride 5 mg oral tablet (1 source) Opioid Agonist Start: 05-16-2025 take 1 tablet by mouth every six hours as needed for pain Oxycodone 5 mg tablet Active 5 mg PO EVERY 6 HOURS as needed for pain 14 3 0 May 16, 2025 Calculus of kidney Calculus of kidney psyllium 400 mg oral capsule (4 sources) Start: 05-14-2025 Psyllium Husk (Daily Fiber) 0.4 gram capsule Active 0.8 g PO DAILY May 14, 2025 12:00am Start: 05-24-2024 Metamucil 5g, Oral, qDay, 0 Refill(s) Start Date: 05/24/24 Status: Ordered Repeat number: 1 Start: 05-24-2024 Metamucil 5g, Oral, qDay, 0 Refill(s) Start Date: 05/24/24 Status: Ordered Vitamin C 250 mg oral tablet (3 sources) Start: 05-24-2024 Vitamin C 250 mg oral tablet Dose : 250 mg = 1 tab(s), Oral, qDay, # 30 tab(s), 0 Refill(s) Start Date: 05/24/24 Status: Ordered Quantity: 30.0 Unit: tab(s) Repeat number: 1 Start: 05-24-2024 Vitamin C 250 mg oral tablet Dose : 250 mg = 1 tab(s), Oral, qDay, # 30 tab(s), 0 Refill(s) Start Date: 05/24/24 Status: Ordered Vitamin D3 50 mcg (2000 intl units) oral capsule (4 sources) Start: 08-30-2024 Vitamin D3 50 mcg (2000 intl units) oral capsule Dose : 2,000 unit(s) = 1 cap(s), Oral, Daily, # 90 cap(s), 1 Refill(s), [id number], Weight loss counseling, encounter for Heterozygous familial hypercholesterolemia, 175, cm, 07/20/24 13:49:00 EDT, Height, kg, 07/20/24 13:49:00 EDT, Dosing Weight Start Date: 08/30/24 Status: Ordered Quantity: 90.0 Unit: cap(s) Repeat number: 2 Indications: Familial hypercholesterolemia; Dietary counseling and surveillance; Start: 05-09-2024 Vitamin D3 50 mcg (2000 intl units) oral capsule Dose : 2,000 unit(s) = 1 cap(s), Oral, Daily, # 100 cap(s), 0 Refill(s), [id number], Weight loss counseling, encounter for Heterozygous familial hypercholesterolemia, 172, cm, 05/09/24 10:13:00 EDT, Height, kg, 05/09/24 10:06:00 EDT, Dosing Weight Start Date: 05/09/24 Status: Ordered Problems Problem Classification Problem Date Documented Date Episodic/Chronic Abdominal hernia (6 sources) Umbilical hernia 01-03-2024 Episodic Abdominal pain (10 sources) Right flank pain; Translations: [Unspecified abdominal pain] Onset: 3 07-16-2023 Episodic Calculus of urinary tract (17 sources) History of calculus of kidney; Translations: [Personal history of urinary calculi] Onset: 3 12-14-2022 Episodic Cardiac dysrhythmias (9 sources) Palpitations; Translations: [Palpitations] Onset: 4 03-14-2024 Episodic Disorders of lipid metabolism (20 sources) Familial hypercholesterolemia - heterozygous; Translations: [Pure hypercholesterolemia] 12-14-2022 Chronic Essential hypertension (8 sources) Essential hypertension; Translations: [Essential (primary) hypertension] Onset: 4 03-14-2024 Chronic Nutritional deficiencies (5 sources) Vitamin D deficiency 05-09-2024 Chronic Other lower respiratory disease (11 sources) Snoring 12-14-2022 Episodic Other nervous system disorders (1 source) Postoperative pain ; Translations: [Other acute postprocedural pain] Onset: 4 Episodic Other nutritional; endocrine; and metabolic disorders (3 sources) Body mass index 30+ - obesity 12-15-2023 Chronic Other nutritional; endocrine; and metabolic disorders (1 source) Severe obesity 12-15-2023 Chronic Other nutritional; endocrine; and metabolic disorders (3 sources) Morbid obesity 07-04-2024 Chronic Other screening for suspected conditions (not mental disorders or infectious disease) (1 source) No current problems or disability; Translations: [No Chronic Problems] 05-08-2025 Episodic Residual codes; unclassified (11 sources) Family history of malignant neoplasm of breast in first degree relative 12-14-2022 Episodic Residual codes; unclassified (11 sources) Past history of procedure 12-14-2022 Episod ic Residual codes; unclassified (2 sources) FH: Cardiovascular disease; Translations: [Family history of ischemic heart disease and other diseases of the circulatory system] Onset: 4 03-14-2024 Episodic Residual codes; unclassified (6 sources) Family history of cardiac disorder 12-15-2023 Episodic Residual codes; unclassified (6 sources) FH: Myocardial infarction 12-15-2023 Episod ic Residual codes; unclassified (6 sources) FH: premature coronary heart disease 01-03-2024 Episodic Residual codes; unclassified (1 source) Family history of ischemic heart disease and other diseases of the circulatory system; Translations: [Family history of ischemic heart disease and other diseases of the circulatory system] Onset: 4 Episodic Unclassified (8 sources) Cancer cervix screening status 01-21-2023 Unclassified (11 sources) Grade A1 albuminuria 01-11-2023 Unclassified (11 sources) Influenza vaccination declined 12-14-2022 Unclassified (20 sources) Patient encounter status 12-14-2022 Unclassified (11 sources) SARS-CoV-2 vaccination declined 12-14-2022 Results Test Name Value Interpretation Reference Range Facility Urine testOrdered By: Mauri Barnes on 05-16-2025 HCG ( test) Ql (U) Negative [facility] Comment on above: Very dilute urine sp ecimens, as indicated by a low specificgravity, may not contain labor service representative levels of hCG. If is still suspected, a first morning urinespecimen should be collected 48 hours later and tested. CT ABDOMEN/PELVIS W/O CONTRA STon 05-08-2025 CT ABDOMEN/PELVIS W/O CONTRAST ORIGINAL EXAMINATION: CT OF THE ABDOMEN AND PELVIS WITHOUT CONTRAST05/07/2025 11:12 pm TECHNIQUE: CT of the abdomen and pelvis was performed without the administration of intravenous contrast. Multiplanar reformatted images are provided for review. Automated exposure control, iterative reconstruction, and/or weight based adjustment of the mA/kV was utilized to reduce the radiation dose to as low as reasonably achievable. COMPARISON: None HISTORY: ORDERING SYSTEM PROVIDED HISTORY: Reason for Exam: r flank pain, vomiting, h/o kidney stone FINDINGS: The included lung bases are clear. Diffuse hepatic steatosis. The spleen, adrenal glands, and pancreas are within normal limits. Gallbladder is unremarkable. 0.6 cm calculus in right ureteropelvic junction/proximal ureter with moderate hydronephrosis. Nonobstructing 0.5 cm left renal calculus. Left ureter is not dilated.. Urinary bladder is underdistended limiting evaluation. The large and small bowel demonstrate no obstruction. The appendix is normal. No free intraperitoneal fluid or gas is identified. The aorta is normal in caliber. There is no lymphadenopathy. The pelvic structures are grossly unremarkable. The abdominal wall is unremarkable. There is no acute fracture or aggressive osseous lesion. IMPRESSION: 0.6 cm obstructing calculus in right ureteropelvic junction/proximal ureter with moderate hydronephrosis. Nonobstructing left renal nephrolithiasis. There is diffuse hypoattenuation of the liver compatible with steatosis. Correlation with clinical findings may be useful. Preliminary Report was Dictated by a Resident I have personally reviewed the images of this examination and agree with the resident's findings and interpretation. Nolan Oh M.D. Interpreted by: Nolan Oh Preliminary Report By: Hardeep Harrell Electronically signed By Nolan Oh Dictated Date: 05/07/2025 11:36:51 PM Prelim Date: 05/07/2025 11:41:24 PM Sign Date: 05/08/2025 12:23:21 AM Ordering Provider: JIE FERNANDEZ Interpreted by: Nolan Oh Preliminary Report By: Hardeep Harrell Electronically signed By Nolan Oh Dictated Date: 05/07/2025 11:36:51 PM Prelim Date: 05/07/2025 11:41:24 PM Sign Date: 05/08/2025 12:23:21 AM Ordering Provider: JIE FERNANDEZ Normal [facility] By: Patti Harkins on 05-07-2025 Appearance (U) Clear (05/07/25 10:34 PM) Normal Clear AO Auto Urine SS Bilirubin Ql (U) Negative (05/07/25 10:34 PM) Normal Negative AO Auto Urine SS Color (U) Yellow (05/07/25 10:34 PM) Normal AO Auto Urine SS Glucose Test strip (U) [Mass/Vol] 250 mg/dL Invalid Interpretation Code Negative AO Auto Urine SS Hemoglobin Auto test strip (U) [Mass/Vol] Moderate *ABN* (05/07/25 10:34 PM) Invalid Interpretation Code Negative AO Auto Urine SS Ketones Ql (U) Negative Normal Negative AO Auto Ur ine SS UA Leuk Est Negative (05/07/25 10:34 PM) Normal Negative AO Auto Urine SS UA Nitrite Negative (05/07/25 10:34 PM) Normal Negative AO Auto Urine SS UA pH 6.0 (05/07/25 10:34 PM) Normal 5.0 - 8.0 AO Auto Urine SS UA Protein 100 mg/dL Invalid Interpretation Code Negative AO Auto Urine SS UA RBC 10-20 /HPF Invalid Interpretation Code 0-2 AO Auto Urine SS UA Spec Grav >=1.030 *ABN* (05/07/25 10:34 PM) Invalid Interpretation Code 1.015-1.025 AO Auto Urine SS UA Specimen Type Clean Catch (05/07/25 10:34 PM) Normal AO Auto Urine SS UA Squam Epithelial 5-10 /HPF Normal 0-20 AO Au to Urine SS UA Urobilinogen 0.2 E.U./dL Normal 0.2-1.0 AO Auto Urine SS WBC LM.HPF (Urine sed) [#/Area] 3-5 /HPF Normal 0-5 AO Auto Urine SS UAon 05-07-2025 Color (U) Yellow Normal [facility] Comment on above: Performed By: #### U AMIC, UA #### [place] [address] Glucose (U) [Mass/Vol] 250 mg/dL Abnormal Negative [facility] Comment on above: Performed By: #### U AMIC, UA #### [address] [address] Ketones Ql (U) Negative Normal Negative [facility] Comment on above: Performed By: #### U AMIC, UA #### [address] [address] UA Appear Clear Normal Clear [facility] Comment on above: Performed By: #### U AMIC, UA #### [address] [address] UA Blood Moderate Abnormal Negative [facility] Comment on above: Performed By: #### U AMIC, UA #### [address] [address] UA Leuk Est Negative Normal Negative [facility] Comment on above: Performed By: #### U AMIC, UA #### [place] [id number] UA Nitrite Negative Normal Negative [facility] Comment on above: Performed By: #### U AMIC, UA #### [address] [address] UA pH 6.0 Normal 5.0 - 8.0 [facility] Comment on above: Performed By: #### U AMIC, UA #### [address] [address] UA Protein 100 mg/dL Abnormal Negative [facility] Comment on above: Performed By: #### U AMIC, UA #### [address] [address] UA Spec Grav >=1.030 Abnormal 1.015-1.025 [facility] Comment on above: Performed By: #### U AMIC, UA #### [address] [address] UA Specimen Type Clean Catch Normal [facility] Comment on above: Performed By: #### U AMIC, UA #### [place] [id number] UA Urobilinogen 0.2 E.U./dL Normal 0.2-1.0 [facility] Comment on above: Performed By: #### U AMIC, UA #### [place] [id number] Urobilinogen (U) [Mass/Vol] Negative Normal Negative [facility] Comment on above: Performed By: #### U AMIC, UA #### [place] [address] UAMICon 05-07-2025 UA RBC 10-20 Abnormal 0-2 [facility] Comment on above: Performed By: #### U AMIC, UA #### [place] [id number] UA Squam Epithelial 5-10 Normal 0-20 [facility] Comment on above: Performed By: #### U AMIC, UA #### [place] [id number] UA WBC 3-5 Normal 0-5 [facility] Comment on above: Performed By: #### U AMIC, UA #### [address] [address] .GFRon 2024 Estimated Glomerular Filtration Rate 88 ml/min/1.73sqm Normal [facility] Comment on above: Result Comment: Stages of Chronic Kidney Disease (CKD) Stage Description eGFR(ml/min/1.73 sq.m.) CKD 1 Normal kidney function or >=90 normal kindney function with possible kidney damage (ex. Proteinuria) CKD 2 Kidney damage with mild loss 60-89 of kidney function CKD 3a Mild to moderate loss of kidney 45-59 function CKD 3b Moderate to severe loss of 30-44 of kindey function CKD 4 Severe loss of kidney function 15-29 CKD 5 Kidney failure <15 Note: (go live 2024) the eGFR calculation was updated to the 2020 CKD-EPI creatinine equation without a race factor to calculate the eGFR results. Performed By: #### R ETO, CMP, BILAI, GFR, VIDH, LIPID #### [place] [address] .Manual Diffon 2024 Bands 2.0 % Normal 0.0-5.0 [facility] Comment on above: Performed By: #### C BC, DIFF, MORPH #### [place] [address] Basophil %, Manual 0.0 % Normal 0.0-2.5 [facility] Comment on above: Performed By: #### C BC, DIFF, MORPH #### [place] [address] Basophil, Abs Manual 0.0 10 3/mcL Normal 0.0-0.2 [facility] Comment on above: Performed By: #### C BC, DIFF, MORPH #### [address] [address] Eosinophil %, Manual 1.0 % Normal 0.0-7.0 [facility] Comment on above: Performed By: #### C BC, DIFF, MORPH #### [place] [address] Eosinophil, Abs Manual 0.1 10 3/mcL Normal 0.0-0.7 [facility] Comment on above: Performed By: #### C BC, DIFF, MORPH #### [place] [address] Lymphocyte %, Manual 16.0 % Low 20.0-40.0 [facility] Comment on above: Performed By: #### C BC, DIFF, MORPH #### [place] [address] [place], [place] [address] Lymphocyte, Abs Manual 1.5 10 3/mcL Normal 0.9-4.3 [facility] Comment on above: Performed By: #### C BC, DIFF, MORPH #### [address] [address] Monocyte %, Manual 9.0 % Normal 2.0-13.0 [facility] Comment on above: Performed By: #### C BC, DIFF, MORPH #### [address] [address] Monocyte, Abs Manual 0.8 10 3/mcL Normal 0.1-1.4 [facility] Comment on above: Performed By: #### C BC, DIFF, MORPH #### [address] [address] Neutrophil %, Manual 72.0 % Normal 50.0-75.0 [facility] Comment on above: Performed By: #### C BC, DIFF, MORPH #### [address] [address] Neutrophil, Abs Manual 6.8 10 3/mcL Normal 2.3-8.1 [facility] Comment on above: Performed By: #### C BC, DIFF, MORPH #### [address] [address] Nucleated RBC 0.0 /100 WBC Normal [facility] Comment on above: Performed By: #### C BC, DIFF, MORPH #### [address] [address] .Morphon 2024 Differential Comment See Below Normal [facility] Comment on above: Result Comment: Manu al Differential Performed. Path review is not indicated. Performed By: #### C BC, DIFF, MORPH #### [address] [address] Platelet Estimate Normal Normal [facility] Comment on above: Performed By: #### C BC, DIFF, MORPH #### [address] [address] RBC morphology finding Nom (Bld) Normal Normal [facility] Comment on above: Performed By: #### C BC, DIFF, MORPH #### [address] [address] BILAIon 2024 Bili Indirect 0.8 mg/dL Normal [facility] Comment on above: Performed By: #### R ETO, CMP, BILAI, GFR, VIDH, LIPID #### [address] [address] Bili Direct 0.2 mg/dL Normal 0.0-0.2 [facility] Comment on above: Result Comment: Use of this assay is not recommended for patients undergoing treatment with eltrombopag due to the potential for falsely elevated results. Performed By: #### R ETO, CMP, BILAI, GFR, VIDH, LIPID #### [address] [address] BILUAon 2024 Urobilinogen (U) [Mass/Vol] Negative Normal Neg-Trace [facility] Comment on above: Performed By: #### B ILUA #### [facility] [address] [place] [id number] CBCon 2024 Erythrocyte distribution width (RBC) [Ratio] 13.8 % Normal 11.5-15.5 [facility] Comment on above: Performed By: #### C BC, DIFF, MORPH #### [address] [address] Hematocrit (Bld) [Volume fraction] 45.4 % Normal 34.0-46.0 [facility] Comment on above: Performed By: #### C BC, DIFF, MORPH #### [address] [address] Hgb 15.9 G/dL Normal 12.0-16.0 [facility] Comment on above: Performed By: #### C BC, DIFF, MORPH #### [address] [address] MCH (RBC) [Entitic mass] 30.9 pg Normal 27.0-33.0 [facility] Comment on above: Performed By: #### C BC, DIFF, MORPH #### [address] [address] MCHC 35.1 G/dL Normal 32.0-36.0 [facility] Comment on above: Performed By: #### C BC, DIFF, MORPH #### [place] [place], [place] [address] MCV (RBC) [Entitic vol] 88.1 fL Normal 80.0-99.0 [facility] Comment on above: Performed By: #### C BC, DIFF, MORPH #### [address] [address] Platelet 280 10 3/mcL Normal 150-450 [facility] Comment on above: Performed By: #### C BC, DIFF, MORPH #### [address] [address] Platelet mean volume (Bld) [Entitic vol] 7.9 fL Normal 6.6-10.5 [facility] Comment on above: Performed By: #### C BC, DIFF, MORPH #### [address] [address] RBC 5.15 10 6/mcL Normal 4.10-5.30 [facility] Comment on above: Performed By: #### C BC, DIFF, MORPH #### [address] [address] WBC 9.2 10 3/mcL Normal 4.5-10.8 [facility] Comment on above: Performed By: #### C BC, DIFF, MORPH #### [address] [address] CMPon 2024 Albumin Level 3.7 G/dL Normal 3.5-5.0 [facility] Comment on above: Performed By: #### R ETO, CMP, BILAI, GFR, VIDH, LIPID #### [address] [address] Albumin/Globulin [Mass ratio] 1.0 {ratio} Low 1.1-2.5 [facility] Comment on above: Performed By: #### R ETO, CMP, BILAI, GFR, VIDH, LIPID #### [address] [address] ALP [Catalytic activity/Vol] 107 U/L Normal 40-135 [facility] Comment on above: Performed By: #### R ETO, CMP, BILAI, GFR, VIDH, LIPID #### [place] [address] ALT [Catalytic activity/Vol] 40 U/L Normal 14-59 [facility] Comment on above: Performed By: #### R ETO, CMP, BILAI, GFR, VIDH, LIPID #### [place] [address] AST [Catalytic activity/Vol] 24 U/L Normal 10-40 [facility] Comment on above: Performed By: #### R ETO, CMP, BILAI, GFR, VIDH, LIPID #### [address] [address] Bili Total 1.0 mg/dL Normal 0.2-1.0 [facility] Comment on above: Result Comment: Use of this assay is not recommended for patients undergoing treatment with eltrombopag due to the potential for falsely elevated results. Performed By: #### R ETO, CMP, BILAI, GFR, VIDH, LIPID #### [address] [address] BUN/Creatinine Ratio 17 ratio Normal 7-27 [facility] Comment on above: Performed By: #### R ETO, CMP, BILAI, GFR, VIDH, LIPID #### [address] [address] Calcium [Mass/Vol] 9.2 mg/dL Normal 8.4-10.2 [facility] Comment on above: Performed By: #### R ETO, CMP, BILAI, GFR, VIDH, LIPID #### [address] [address] Chloride [Moles/Vol] 101 mmol/L Normal 98-107 [facility] Comment on above: Performed By: #### R ETO, CMP, BILAI, GFR, VIDH, LIPID #### [address] [address] CO2 [Moles/Vol] 30 mmol/L High 22-29 [facility] Comment on above: Performed By: #### R ETO, CMP, BILAI, GFR, VIDH, LIPID #### [address] [address] Creatinine [Mass/Vol] 0.81 mg/dL Normal 0.55-1.02 [facility] Comment on above: Result Comment: Test ing performed on [employer] Dimension EXL analyzer using a modified kinetic Jairo technique. Performed By: #### R ETO, CMP, BILAI, GFR, VIDH, LIPID #### [place] [address] Electrolyte Balance 5.0 mEq/L Normal 4.0-15.0 [facility] Comment on above: Performed By: #### R ETO, CMP, BILAI, GFR, VIDH, LIPID #### [place] [address] Globulin 3.8 G/dL Normal 1.5-3.8 [facility] Comment on above: Performed By: #### R ETO, CMP, BILAI, GFR, VIDH, LIPID #### [address] [address] Glucose [Mass/Vol] 151 mg/dL High 70-105 [facility] Comment on above: Performed By: #### R ETO, CMP, BILAI, GFR, VIDH, LIPID #### [place] [address] Potassium [Moles/Vol] 3.9 mmol/L Normal 3.5-5.1 [facility] Comment on above: Performed By: #### R ETO, CMP, BILAI, GFR, VIDH, LIPID #### [address] [address] Sodium [Moles/Vol] 136 mmol/L Normal 136-145 [facility] Comment on above: Performed By: #### R ETO, CMP, BILAI, GFR, VIDH, LIPID #### [address] [place], [place] [address] Total Protein 7.5 G/dL Normal 6.4-8.2 [facility] Comment on above: Performed By: #### R ETO, CMP, BILAI, GFR, VIDH, LIPID #### [address] [place], [place] [address] Urea nitrogen [Mass/Vol] 14 mg/dL Normal 7-18 [facility] Comment on above: Performed By: #### R ETO, CMP, BILAI, GFR, VIDH, LIPID #### [address] [place], [place] [address] LABORATORYOrdered By: Tatiana Dunham on 2024 Bilirubin Ql (U) Negative (12/18/24 9:43 AM) Normal Neg-Trace AH Auto Urine SS LABORATORYOrdered By: SYSTEM SYSTEM on 2024 Band form neutrophils/100 WBC (Bld) 2.0 % Normal 0.0 - 5.0 % AO Workflow SS Basophil %, Manual 0.0 % Normal 0.0 - 2.5 % AO Wo rkflow SS Basophils (Bld) [#/Vol] 0.0 103/mcL Normal 0.0 - 0.2 10^3/mcL AO Workflow SS Eosinophil %, Manual 1.0 % Normal 0.0 - 7.0 % AO Workflow SS Eosinophils (Bld) [#/Vol] 0.1 103/mcL Normal 0.0 - 0.7 10^3/mcL AO Workflow SS Erythrocyte distribution width (RBC) [Ratio] 13.8 % Normal 11.5 - 15.5 % AO Workflow SS Hematocrit (Bld) [Volume fraction] 45.4 % Normal 34.0 - 46.0 % AO Workflow SS Hemoglobin (Bld) [Mass/Vol] 15.9 G/dL Normal 12.0 - 16.0 G/dL AO Workflow SS Lymphocytes (Bld) [#/Vol] 1.5 103/mcL Normal 0.9 - 4.3 10^3/mcL AO Workflow SS Lymphocytes/100 WBC (Bld) 16.0 % Low 20.0 - 40.0 % AO Workflow SS MCH (RBC) [Entitic mass] 30.9 pg Normal 27.0 - 33.0 pg AO Workflow SS MCHC 35.1 G/dL Normal 32.0 - 36.0 G/dL AO Workflow SS MCV (RBC) [Entitic vol] 88.1 fL Normal 80.0 - 99.0 fL AO Workflow SS Monocytes (Bld) [#/Vol] 0.8 103/mcL Normal 0.1 - 1.4 10^3/mcL AO Workflow SS Monocytes/100 WBC (Bld) 9.0 % Normal 2.0 - 13.0 % AO Workflow SS Neutrophils (Bld) [#/Vol] 6.8 103/mcL Normal 2.3 - 8.1 10^3/mcL AO Workflow SS Neutrophils/100 WBC (Bld) 72.0 % Normal 50.0 - 75.0 % AO Workflow SS Nucleated RBC 0.0 /100 WBC Invalid Interpretation Code AO Workflow SS Platelet mean volume (Bld) [Entitic vol] 7.9 fL Normal 6.6 - 10.5 fL AO Workflow SS Platelets (Bld) [#/Vol] 280 103/mcL Normal 150 - 450 10^3/mcL AO Workflow SS Platelets LM Ql (Bld) Normal *NA* (12/18/24 9:35 AM) Invalid Interpretation Code AO Workflow SS RBC (Bld) [#/Vol] 5.15 106/mcL Normal 4.10 - 5.3 0 10^6/mcL AO Workflow SS RBC morphology finding Nom (Bld) Normal *NA* (12/18/24 9:35 AM) Invalid Interpretation Code AO Workflow SS WBC (Bld) [#/Vol] 9.2 103/mcL Normal 4.5 - 10.8 10^3/mcL AO Workflow SS 25-hydroxyvitamin D3 [Mass/Vol] 33.0 ng/mL Invalid Interpretation Code AO ADM SS Comment on above: Interpretive Data: I nterpretive Values Based on Total 25(OH) Vitamin D: Deficient <20 ng/mL Insufficient 20 - <30 ng/mL Sufficient 30-100 ng/mL Albumin BCP dye [Mass/Vol] 3.7 G/dL Normal 3.5 - 5.0 G/dL AO ADM SS Albumin/Globulin [Mass ratio] 1.0 {ratio} Low 1.1 - 2.5 ratio AO ADM SS ALP [Catalytic activity/Vol] 107 U/L Normal 40 - 135 U/L AO ADM SS ALT With P-5'-P [Catalytic activity/Vol] 40 U/L Normal 14 - 59 U/L AO ADM SS AST With P-5'-P [Catalytic activity/Vol] 24 U/L Normal 10 - 40 U/L AO ADM SS Bilirubin.direct [Mass/Vol] 0.2 mg/dL Normal 0.0 - 0.2 mg/dL AO ADM SS Comment on above: Interpretive Data: U se of this assay is not recommended for patients undergoing treatment with eltrombopag due to the potential for falsely elevated results. Bilirubin.direct [Mass/Vol] 0.8 mg/dL Invalid Interpretation Code AO Chemistry S Calcium [Mass/Vol] 9.2 mg/dL Normal 8.4 - 10. 2 mg/dL AO ADM SS Chloride [Moles/Vol] 101 mmol/L Normal 98 - 10 7 mmol/L AO ADM SS CO2 [Moles/Vol] 30 mmol/L High 22 - 29 mmol/L AO ADM SS Creatinine [Mass/Vol] 0.81 mg/dL Normal 0.55 - 1.02 mg/dL AO ADM SS Comment on above: Interpretive Data: T esting performed on [employer] Dimension EXL analyzer using a modified kinetic Jairo technique. Electrolyte Balance 5.0 mEq/L Normal 4.0 - 15 .0 mEq/L AO ADM SS Estimated Glomerular Filtration Rate 88 ml/min/1.73sqm Invalid Interpretation Code AO Chemistry S Comment on above: Interpretive Data: Stages of Chronic Kidney Disease (CKD) Stage Description eGFR(ml/min/1.73 sq.m.) CKD 1 Normal kidney function or >=90 normal kindney function with possible kidney damage (ex. Proteinuria) CKD 2 Kidney damage with mild loss 60-89 of kidney function CKD 3a Mild to moderate loss of kidney 45-59 function CKD 3b Moderate to severe loss of 30-44 of kindey function CKD 4 Severe loss of kidney function 15-29 CKD 5 Kidney failure <15 Note: (go live 2024) the eGFR calculation was updated to the 2020 CKD-EPI creatinine equation without a race factor to calculate the eGFR results. Globulin 3.8 G/dL Normal 1.5 - 3.8 G/dL AO ADM SS Glucose [Mass/Vol] 151 mg/dL High 70 - 105 mg/dL AO ADM SS Immature reticulocytes/Total reticulocytes (Bld) 0.48 IRF High 0.20 - 0.46 IRF AO Workflow SS Potassium [Moles/Vol] 3.9 mmol/L Normal 3.5 - 5.1 mmol/L AO ADM SS Protein [Mass/Vol] 7.5 G/dL Normal 6.4 - 8.2 G/dL AO ADM SS Reticulocytes, Auto 2.7 % High 0.2 - 2.3 % AO W orkflow SS Sodium [Moles/Vol] 136 mmol/L Normal 136 - 145 mmol/L AO ADM SS Urea nitrogen [Mass/Vol] 14 mg/dL Normal 7 - 18 mg/dL AO ADM SS Urea nitrogen/Creatinine [Mass ratio] 17 ratio Normal 7 - 27 ratio AO ADM SS LABORATORYOrdered By: Bria Guzman on 2024 Differential Comment See Below 7 (12/18/24 9:35 AM) Normal AO Hematology S Comment on above: Result Comment: Serge rivero Differential Performed. Path review is not indicated. Cholesterol [Mass/Vol] 190 mg/dL Normal 0 - 200 mg/dL AO ADM SS Comment on above: Interpretive Data: C holesterol Reference Interval: Less than 200 Desirable 200-239 Borderline high risk 240 and above High risk Cholesterol in HDL [Mass/Vol] 63 mg/dL High 40 - 60 mg/dL AO ADM SS Cholesterol in LDL [Mass/Vol] 107 mg/dL Normal 0 - 130 mg/dL AO ADM SS Triglyceride [Mass/Vol] 100 mg/dL Normal 0 - 150 mg/dL AO ADM SS Comment on above: Interpretive Data: T riglyceride Reference Interval: Less than 150 Normal 150-199 Borderline high risk 200-499 High risk 500 or higher Very high risk LIPIDon 2024 Cholesterol [Mass/Vol] 190 mg/dL Normal 0-200 [facility] Comment on above: Result Comment: Chol esterol Reference Interval: Less than 200 Desirable 200-239 Borderline high risk 240 and above High risk Performed By: #### R ETO, CMP, BILAI, GFR, VIDH, LIPID #### [address] [place], [place] [address] Cholesterol in HDL [Mass/Vol] 63 mg/dL High 40-60 [facility] Comment on above: Performed By: #### R ETO, CMP, BILAI, GFR, VIDH, LIPID #### [address] [place], [place] [address] Cholesterol in LDL [Mass/Vol] 107 mg/dL Normal 0-130 [facility] Comment on above: Performed By: #### R ETO, CMP, BILAI, GFR, VIDH, LIPID #### [address] [place], [place] [address] Triglyceride [Mass/Vol] 100 mg/dL Normal 0-150 [facility] Comment on above: Result Comment: Trig lyceride Reference Interval: Less than 150 Normal 150-199 Borderline high risk 200-499 High risk 500 or higher Very high risk Performed By: #### R ETO, CMP, BILAI, GFR, VIDH, LIPID #### [address] [address] Laboratory - Chemistry and C hemistry - challengeOrdered By: SYSTEM SYSTEM on 2024 Bilirubin [Mass/Vol] 1.0 mg/dL Normal 0.2 - 1 .0 mg/dL AO ADM SS Comment on above: Interpretive Data: U se of this assay is not recommended for patients undergoing treatment with eltrombopag due to the potential for falsely elevated results. RETO (AO)on 2024 Immature Retic Fraction 0.48 IRF High 0.20-0.46 [facility] Comment on above: Performed By: #### R ETO, CMP, BILAI, GFR, VIDH, LIPID #### [address] [place], [place] [address] Reticulocytes, Auto 2.7 % High 0.2-2.3 [facility] Comment on above: Performed By: #### R ETO, CMP, BILAI, GFR, VIDH, LIPID #### [address] [address] VIDHon 2024 Vit. D 25-Hydroxy 33.0 ng/mL Normal [facility] Comment on above: Result Comment: Inte rpretive Values Based on Total 25(OH) Vitamin D: Deficient <20 ng/mL Insufficient 20 - <30 ng/mL Sufficient 30-100 ng/mL Performed By: #### R ETO, CMP, BILAI, GFR, VIDH, LIPID #### [address] [address] LABORATORYOrdered By: Yaima Gonsalves on 07-13-2024 HCG ( test) Ql Negative (07/13/24 11:26 AM) Normal AO Manual Urine SS test (u) int Not detected Invalid Interpretation Code AO Manual Urine SS PREGUon 07-13-2024 HCG ( test) Ql (U) Negative Normal [facility] Comment on above: Performed By: #### C BC, DIFF, MORPH #### [place] [address] test (u) int Not detected Invalid Interpretation Code [facility] Comment on above: Performed By: #### C BC, DIFF, MORPH #### [place] [address] MA MAMMOGRAM SCREENING BILAT ERAL W/TOMOon 05-22-2024 MA MAMMOGRAM SCREENING BILATERAL W/JESS ORIGINAL FROM: [place] [address] PROCEDURE FOR: GOPAL LAMA [address] [place] [address] Home: PID#: [id number] Exam#: [id number] : 1975 Age: 48 TO: HUY DONALD D.O. [address] [place] [id number] Fax: NO FAX EXAMINATION: SCREENING DIGITAL BILATERAL MAMMOGRAM WITH TOMOSYNTHESIS, 05/19/2024 10:59 am TECHNIQUE: Screening mammography of the bilateral breasts was performed with tomosynthesis. 2D standard and 3D tomosynthesis combination imaging performed through both breasts in the MLO and CC projection. Computer aided detection was utilized in the interpretation of this exam. COMPARISON: 01/21/2023 HISTORY: Breast cancer screening. FINDINGS: BREAST DENSITY: There are scattered areas of fibroglandular density. There is a biopsy clip in the left breast. There are no significant masses or calcifications. IMPRESSION: No mammographic evidence of malignancy. Continued screening with annual mammograms is recommended. Surjit Michaelataty risk calculations, generated with the history provided, report this patient's 10 year risk and lifetime risk for developing breast cancer at 2.8% and 11.9%, respectively. Based on this assessment tool, if the patient's calculated lifetime risk is below 20%, then the patient is considered at average risk for developing breast cancer. If the patient's calculated lifetime risk is at or above 20%, then the patient is considered high risk for developing breast cancer and may be a candidate for supplemental breast MRI screening in addition to annual mammographic screening per the [employer]. BIRADS: BI-RADS: 2: Benign RECALL: 1 year screening RECALL TYPE: mammo LETTER SENT: Normal BI-RADS 1 and 2 Interpreted by: Dolores Joshi MD Preliminary Report By: Dolores Joshi MD Electronically signed By Dolores Joshi MD Dictated Date: 05/22/2024 8:48:05 PM Prelim Date: 05/22/2024 8:50:06 PM Sign Date: 05/22/2024 8:50:06 PM Ordering Provider: HUY DONALD Industrial Relations Counselor: KENDRA SESAY(R) RDMS letter sent: Normal BI-RADS 1 and 2 Mammogram BI-RADS: 2 Benign Normal [facility]) .Auto Diffon 03-14-2024 Basophil, Absolute 0.0 10 3/mcL Normal 0.0-0.2 [facility] ([place]) Comment on above: Performed By: #### F T4, LIPID, A1C, ANEU, GFR, TSH, CMP, CBC, VIDH, ADIFF #### [place] [address] [address] Basophils/100 WBC (Bld) 0.4 % Normal 0.0-2.5 [facility] ([place]) Comment on above: Performed By: #### F T4, LIPID, A1C, ANEU, GFR, TSH, CMP, CBC, VIDH, ADIFF #### [address] [address] Eosinophil, Absolute 0.1 10 3/mcL Normal 0.0-0.4 [facility] ([place]) Comment on above: Performed By: #### F T4, LIPID, A1C, ANEU, GFR, TSH, CMP, CBC, VIDH, ADIFF #### [address] [address] Eosinophils/100 WBC (Bld) 1.1 % Normal 0.0-7.0 [facility] ([place]) Comment on above: Performed By: #### F T4, LIPID, A1C, ANEU, GFR, TSH, CMP, CBC, VIDH, ADIFF #### [address] [address] Lymphocyte, Absolute 2.2 10 3/mcL Normal 0.8-3.9 [facility] ([place]) Comment on above: Performed By: #### F T4, LIPID, A1C, ANEU, GFR, TSH, CMP, CBC, VIDH, ADIFF #### [address] [address] Lymphocytes/100 WBC (Bld) 27.5 % Normal 10.0-50.0 [facility] ([place]) Comment on above: Performed By: #### F T4, LIPID, A1C, ANEU, GFR, TSH, CMP, CBC, VIDH, ADIFF #### [address] [address] Monocyte, Absolute 0.5 10 3/mcL Normal 0.2-1.0 [facility] ([place]) Comment on above: Performed By: #### F T4, LIPID, A1C, ANEU, GFR, TSH, CMP, CBC, VIDH, ADIFF #### [address] [address] Monocytes/100 WBC (Bld) 6.1 % Normal 1.7-13.0 [facility] ([place]) Comment on above: Performed By: #### F T4, LIPID, A1C, ANEU, GFR, TSH, CMP, CBC, VIDH, ADIFF #### [address] [address] Neutrophils/100 WBC (Bld) 64.9 % Normal 37.0-80.0 [facility] ([place]) Comment on above: Performed By: #### F T4, LIPID, A1C, ANEU, GFR, TSH, CMP, CBC, VIDH, ADIFF #### [place] [address] [address] .GFRon 03-14-2024 GFR 86 ml/min/1.73sqm Normal [facility] ([place]) Comment on above: Result Comment: GFR Population mean for , Non- Americans Ages 20-29 = 116 mL/min/1.73 sq.m. Ages 30-39 = 107 mL/min/1.73 sq.m. Ages 40-49 = 99 mL/min/1.73 sq.m. Ages 50-59 = 93 mL/min/1.73 sq.m. Ages 60-69 = 85 mL/min/1.73 sq.m. Ages 70+ = 75 mL/min/1.73 sq.m. Chronic Kidney Disease: Less than 60 mL/min/1.73 square meters End Stage Renal Disease: Less than 15 mL/min/1.73 square meters Performed By: #### G FR, CMP, LIPID #### [place] [address] [address] GFR Non- 71 ml/min/1.73sqm Normal [facility] ([place]) Comment on above: Result Comment: GFR Population mean for , Non- Americans Ages 20-29 = 116 mL/min/1.73 sq.m. Ages 30-39 = 107 mL/min/1.73 sq.m. Ages 40-49 = 99 mL/min/1.73 sq.m. Ages 50-59 = 93 mL/min/1.73 sq.m. Ages 60-69 = 85 mL/min/1.73 sq.m. Ages 70+ = 75 mL/min/1.73 sq.m. Chronic Kidney Disease: Less than 60 mL/min/1.73 square meters End Stage Renal Disease: Less than 15 mL/min/1.73 square meters Performed By: #### G FR, CMP, LIPID #### [address] [address] .NEUABSon 03-14-2024 Neutrophil, Absolute 5.1 10 3/mcL Normal 2.9-6.2 [facility] ([place]) Comment on above: Performed By: #### F T4, LIPID, A1C, ANEU, GFR, TSH, CMP, CBC, VIDH, ADIFF #### [place] [id number] A1Con 03-14-2024 HbA1c (Bld) [Mass fraction] 5.6 % Normal 4.3-6.4 [facility] ([place]) Comment on above: Performed By: #### F T4, LIPID, A1C, ANEU, GFR, TSH, CMP, CBC, VIDH, ADIFF #### [place] [address] CBCon 03-14-2024 Erythrocyte distribution width (RBC) [Ratio] 14.0 % Normal 11.5-14.5 [facility] ([place]) Comment on above: Performed By: #### F T4, LIPID, A1C, ANEU, GFR, TSH, CMP, CBC, VIDH, ADIFF #### [place] [address] Hematocrit (Bld) [Volume fraction] 42.0 % Normal 37.0-47.0 [facility] ([place]) Comment on above: Performed By: #### F T4, LIPID, A1C, ANEU, GFR, TSH, CMP, CBC, VIDH, ADIFF #### [place] [address] Hgb 14.9 G/dL Normal 12.0-16.0 [facility] ([place]) Comment on above: Performed By: #### F T4, LIPID, A1C, ANEU, GFR, TSH, CMP, CBC, VIDH, ADIFF #### [place] [address] MCH (RBC) [Entitic mass] 31.4 pg High 27.0-31.2 [facility] ([place]) Comment on above: Performed By: #### F T4, LIPID, A1C, ANEU, GFR, TSH, CMP, CBC, VIDH, ADIFF #### [address] [address] MCHC 35.3 G/dL Normal 33.0-37.0 [facility] ([place]) Comment on above: Performed By: #### F T4, LIPID, A1C, ANEU, GFR, TSH, CMP, CBC, VIDH, ADIFF #### [address] [address] MCV (RBC) [Entitic vol] 88.9 fL Normal 80.0-94.0 [facility] ([place]) Comment on above: Performed By: #### F T4, LIPID, A1C, ANEU, GFR, TSH, CMP, CBC, VIDH, ADIFF #### [address] [address] Platelet 276 10 3/mcL Normal 130-400 [facility] ([place]) Comment on above: Performed By: #### F T4, LIPID, A1C, ANEU, GFR, TSH, CMP, CBC, VIDH, ADIFF #### [address] [address] Platelet mean volume (Bld) [Entitic vol] 7.5 fL Normal 7.4-10.4 [facility] ([place]) Comment on above: Performed By: #### F T4, LIPID, A1C, ANEU, GFR, TSH, CMP, CBC, VIDH, ADIFF #### [address] [address] RBC 4.73 10 6/mcL Normal 4.20-5.40 [facility] ([place]) Comment on above: Performed By: #### F T4, LIPID, A1C, ANEU, GFR, TSH, CMP, CBC, VIDH, ADIFF #### [address] [address] WBC 7.9 10 3/mcL Normal 4.6-10.8 [facility] ([place]) Comment on above: Performed By: #### F T4, LIPID, A1C, ANEU, GFR, TSH, CMP, CBC, VIDH, ADIFF #### [address] [address] CMPon 03-14-2024 Albumin Level 3.7 G/dL Normal 3.5-5.0 [facility] ([place]) Comment on above: Performed By: #### G FR, CMP, LIPID #### [address] [address] Albumin/Globulin [Mass ratio] 1.0 {ratio} Low 1.1-2.5 [facility] ([place]) Comment on above: Performed By: #### G FR, CMP, LIPID #### [address] [address] ALP [Catalytic activity/Vol] 106 U/L Normal 40-135 [facility] ([place]) Comment on above: Performed By: #### G FR, CMP, LIPID #### [address] [address] ALT [Catalytic activity/Vol] 32 U/L Normal 14-59 [facility] ([place]) Comment on above: Performed By: #### G FR, CMP, LIPID #### [address] [address] AST [Catalytic activity/Vol] 22 U/L Normal 10-40 [facility] ([place]) Comment on above: Performed By: #### G FR, CMP, LIPID #### [address] [address] Bili Total 1.3 mg/dL High 0.2-1.0 [facility] ([place]) Comment on above: Result Comment: Use of this assay is not recommended for patients undergoing treatment with eltrombopag due to the potential for falsely elevated results. Performed By: #### G FR, CMP, LIPID #### [address] [address] BUN/Creatinine Ratio 16 ratio Normal 7-27 [facility] ([place]) Comment on above: Performed By: #### G FR, CMP, LIPID #### [address] [address] Calcium [Mass/Vol] 8.9 mg/dL Normal 8.4-10.2 [facility] ([place]) Comment on above: Performed By: #### G FR, CMP, LIPID #### [address] [address] Chloride [Moles/Vol] 103 mmol/L Normal 98-107 [facility] ([place]) Comment on above: Performed By: #### G FR, CMP, LIPID #### [address] [address] CO2 [Moles/Vol] 29 mmol/L Normal 22-29 [facility] ([place]) Comment on above: Performed By: #### G FR, CMP, LIPID #### [address] [address] Creatinine [Mass/Vol] 0.85 mg/dL Normal 0.55-1.02 Counts include 234 beds at the [facility] ([place]) Comment on above: Performed By: #### G FR, CMP, LIPID #### [address] [address] Electrolyte Balance 9.0 mEq/L Normal 4.0-15.0 [facility] ([place]) Comment on above: Performed By: #### G FR, CMP, LIPID #### [address] [address] Globulin 3.7 G/dL Normal [facility] ([place]) Comment on above: Performed By: #### G FR, CMP, LIPID #### [address] [address] Glucose [Mass/Vol] 125 mg/dL High 70-105 [facility] ([place]) Comment on above: Performed By: #### G FR, CMP, LIPID #### [address] [address] Potassium [Moles/Vol] 4.1 mmol/L Normal 3.5-5.1 Counts include 234 beds at the [facility] ([place]) Comment on above: Performed By: #### G FR, CMP, LIPID #### [address] [address] Sodium [Moles/Vol] 141 mmol/L Normal 136-145 [facility] ([place]) Comment on above: Performed By: #### G FR, CMP, LIPID #### [facility] [address], [place] [address] Total Protein 7.4 G/dL Normal 6.4-8.2 [facility] ([place]) Comment on above: Performed By: #### G FR, CMP, LIPID #### [facility] [address] [place], [place] [address] Urea nitrogen [Mass/Vol] 14 mg/dL Normal 7-18 [facility] ([place]) Comment on above: Performed By: #### G FR, CMP, LIPID #### [place] [id number] [place], [place] [address] CT CARDIAC SCORING WO IV CON TRASTon 03-14-2024 CT CARDIAC SCORING WO IV CONTRAST Interpreted By: Karolyn Diaz, STUDY: CT CARDIAC SCORING WO IV CONTRAST; 03/14/2024 8:30 am INDICATION: Signs/Symptoms:Refe r to DX. COMPARISON: None. ACCESSION NUMBER(S): [id number] ORDERING CLINICIAN: MARIE GARG TECHNIQUE: Using prospective ECG gating, CT scan of the coronary arteries was performed without intravenous contrast. Coronary calcium scoring was performed according to the method of Agatston. FINDINGS: The score and distribution of calcium in the coronary arteries is as follows: LM 0 LAD 0 LCx 0 RCA 0 Total 0 Included portions visualized mediastinum and nicole are unremarkable. Esophagus visualized portions is unremarkable Heart and great vessels demonstrate ascending thoracic aorta to measure 3.2 cm. No cardiomegaly demonstrated Included portions visualized abdomen demonstrate moderate fatty infiltration of the liver. Visualized portions lung parenchyma are unremarkable. IMPRESSION: 1. Coronary artery calcium score of 0*. 2. Moderate fatty infiltration of the liver. Correlate with patient's liver function tests *Coronary artery calcium scoring may be helpful in predicting the risk for future coronary heart disease events. According to the [employer] Clinical Expert Consensus Task Force, such testing provides important prognostic information in patients with more than one coronary heart disease risk factor. The coronary artery calcium score correlates with the annual risk of a non-fatal myocardial infarction or coronary heart disease . Coronary artery score Annual Risk 0-99 0.4% 100-399 1.3% >400 2.4% These three breakpoints correspond to lower, intermediate and high risk states for future coronary events. Such information should be used, along with appropriate clinical judgment, to make decisions regarding the intensity of risk factor management strategies to treat blood lipids and to modify other non-lipid coronary risk factors. Reference: Brayan P et al. Circulation. 2007; 115:402-426 MACRO: None Signed by: Karolyn Diaz 03/15/2024 2:39 PM Dictation workstation: [id number] [facility] FT4on 03-14-2024 Free T4 [Mass/Vol] 1.05 ng/dL Normal 0.76-1.46 [facility] ([place]) Comment on above: Performed By: #### F T4, LIPID, A1C, ANEU, GFR, TSH, CMP, CBC, VIDH, ADIFF #### [place] [id number] [place] [address] LABORATORYOrdered By: Zarina Pickard on 03-14-2024 Albumin DL <= 20 mg/L (U) [Mass/Vol] 2856 mcg/dL Invalid Interpretation Code AO ADM SS Albumin/Creatinine DL <= 20 mg/L (U) [Mass ratio] 11 mcg/mg Normal 0 - 30 mcg/mg AO ADM SS Creatinine (U) [Mass/Vol] 258.8 mg/dL High 28.0 - 117.0 mg/dL AO ADM SS LABORATORYOrdered By: SYSTEM SYSTEM on 03-14-2024 25-hydroxyvitamin D3 [Mass/Vol] 15.6 ng/mL Invalid Interpretation Code AO ADM SS Comment on above: Interpretive Data: I nterpretive Values Based on Total 25(OH) Vitamin D: Deficient <20 ng/mL Insufficient 20 - <30 ng/mL Sufficient 30-100 ng/mL Albumin BCP dye [Mass/Vol] 3.7 G/dL Normal 3.5 - 5.0 G/dL AO ADM SS Albumin/Globulin [Mass ratio] 1.0 {ratio} Low 1.1 - 2.5 ratio AO ADM SS ALP [Catalytic activity/Vol] 106 U/L Normal 40 - 135 U/L AO ADM SS ALT With P-5'-P [Catalytic activity/Vol] 32 U/L Normal 14 - 59 U/L AO ADM SS AST With P-5'-P [Catalytic activity/Vol] 22 U/L Normal 10 - 40 U/L AO ADM SS Basophil, Absolute 0.0 103/mcL Normal 0.0 - 0.2 10^3/mcL AO Workflow SS Basophils/100 WBC (Bld) 0.4 % Normal 0.0 - 2.5 % AO Workflow SS Bilirubin [Mass/Vol] 1.3 mg/dL High 0.2 - 1 .0 mg/dL AO ADM SS Comment on above: Interpretive Data: U se of this assay is not recommended for patients undergoing treatment with eltrombopag due to the potential for falsely elevated results. Calcium [Mass/Vol] 8.9 mg/dL Normal 8.4 - 10. 2 mg/dL AO ADM SS Chloride [Moles/Vol] 103 mmol/L Normal 98 - 10 7 mmol/L AO ADM SS CO2 [Moles/Vol] 29 mmol/L Normal 22 - 29 mmol/L AO ADM SS Creatinine [Mass/Vol] 0.85 mg/dL Normal 0.55 - 1.02 mg/dL AO ADM SS Electrolyte Balance 9.0 mEq/L Normal 4.0 - 15 .0 mEq/L AO ADM SS Eosinophil, Absolute 0.1 103/mcL Normal 0.0 - 0 .4 10^3/mcL AO Workflow SS Eosinophils/100 WBC (Bld) 1.1 % Normal 0.0 - 7.0 % AO Workflow SS Erythrocyte distribution width (RBC) [Ratio] 14.0 % Normal 11.5 - 14.5 % AO Workflow SS Free T4 [Mass/Vol] 1.05 ng/dL Normal 0.76 - 1. 46 ng/dL AO ADM SS GFR/1.73 sq M.predicted among blacks MDRD (S/P/Bld) [Vol rate/Area] 86 ml/min/1.73sqm Invalid Interpretation Code AO Chemistry S Comment on above: Interpretive Data: GFR Population mean for , Non- Americans Ages 20-29 = 116 mL/min/1.73 sq.m. Ages 30-39 = 107 mL/min/1.73 sq.m. Ages 40-49 = 99 mL/min/1.73 sq.m. Ages 50-59 = 93 mL/min/1.73 sq.m. Ages 60-69 = 85 mL/min/1.73 sq.m. Ages 70+ = 75 mL/min/1.73 sq.m. Chronic Kidney Disease: Less than 60 mL/min/1.73 square meters End Stage Renal Disease: Less than 15 mL/min/1.73 square meters GFR/1.73 sq M.predicted among non-blacks MDRD (S/P/Bld) [Vol rate/Area] 71 ml/min/1.73sqm Invalid Interpretation Code AO Chemistry S Comment on above: Interpretive Data: GFR Population mean for , Non- Americans Ages 20-29 = 116 mL/min/1.73 sq.m. Ages 30-39 = 107 mL/min/1.73 sq.m. Ages 40-49 = 99 mL/min/1.73 sq.m. Ages 50-59 = 93 mL/min/1.73 sq.m. Ages 60-69 = 85 mL/min/1.73 sq.m. Ages 70+ = 75 mL/min/1.73 sq.m. Chronic Kidney Disease: Less than 60 mL/min/1.73 square meters End Stage Renal Disease: Less than 15 mL/min/1.73 square meters Globulin 3.7 G/dL Invalid Interpretation Code AO ADM SS Glucose [Mass/Vol] 125 mg/dL High 70 - 105 mg/dL AO ADM SS HbA1c (Bld) [Mass fraction] 5.6 % Normal 4.3 - 6.4 % AO ADM SS Hematocrit (Bld) [Volume fraction] 42.0 % Normal 37.0 - 47.0 % AO Workflow SS Hemoglobin (Bld) [Mass/Vol] 14.9 G/dL Normal 12.0 - 16.0 G/dL AO Workflow SS Lymphocyte, Absolute 2.2 103/mcL Normal 0.8 - 3 .9 10^3/mcL AO Workflow SS Lymphocytes/100 WBC (Bld) 27.5 % Normal 10.0 - 50.0 % AO Workflow SS MCH (RBC) [Entitic mass] 31.4 pg High 27.0 - 31.2 pg AO Workflow SS MCHC 35.3 G/dL Normal 33.0 - 37.0 G/dL AO Workflow SS MCV (RBC) [Entitic vol] 88.9 fL Normal 80.0 - 94.0 fL AO Workflow SS Monocyte, Absolute 0.5 103/mcL Normal 0.2 - 1.0 10^3/mcL AO Workflow SS Monocytes/100 WBC (Bld) 6.1 % Normal 1.7 - 13.0 % AO Workflow SS Neutrophil, Absolute 5.1 103/mcL Normal 2.9 - 6 .2 10^3/mcL AO Workflow SS Neutrophils/100 WBC (Bld) 64.9 % Normal 37.0 - 80.0 % AO Workflow SS Platelet mean volume (Bld) [Entitic vol] 7.5 fL Normal 7.4 - 10.4 fL AO Workflow SS Platelets (Bld) [#/Vol] 276 103/mcL Normal 130 - 400 10^3/mcL AO Workflow SS Potassium [Moles/Vol] 4.1 mmol/L Normal 3.5 - 5.1 mmol/L AO ADM SS Protein [Mass/Vol] 7.4 G/dL Normal 6.4 - 8.2 G/dL AO ADM SS RBC (Bld) [#/Vol] 4.73 106/mcL Normal 4.20 - 5.4 0 10^6/mcL AO Workflow SS Sodium [Moles/Vol] 141 mmol/L Normal 136 - 145 mmol/L AO ADM SS TSH Qn 1.69 m[IU]/L Normal 0.36 - 3.74 mcIU/mL AO ADM SS Urea nitrogen [Mass/Vol] 14 mg/dL Normal 7 - 18 mg/dL AO ADM SS Urea nitrogen/Creatinine [Mass ratio] 16 ratio Normal 7 - 27 ratio AO ADM SS WBC (Bld) [#/Vol] 7.9 103/mcL Normal 4.6 - 10.8 10^3/mcL AO Workflow SS LABORATORYOrdered By: Yaima Gonsalves on 03-14-2024 Cholesterol [Mass/Vol] 198 mg/dL Normal 0 - 200 mg/dL AO ADM SS Comment on above: Interpretive Data: C holesterol Reference Interval: Less than 200 Desirable 200-239 Borderline high risk 240 and above High risk Cholesterol in HDL [Mass/Vol] 59 mg/dL Normal 40 - 60 mg/dL AO ADM SS Cholesterol in LDL [Mass/Vol] 120 mg/dL Normal 0 - 130 mg/dL AO ADM SS Triglyceride [Mass/Vol] 96 mg/dL Normal 0 - 150 mg/dL AO ADM SS Comment on above: Interpretive Data: T riglyceride Reference Interval: Less than 150 Normal 150-199 Borderline high risk 200-499 High risk 500 or higher Very high risk LIPIDon 03-14-2024 Cholesterol [Mass/Vol] 198 mg/dL Normal 0-200 [facility] ([place]) Comment on above: Result Comment: Chol esterol Reference Interval: Less than 200 Desirable 200-239 Borderline high risk 240 and above High risk Performed By: #### G FR, CMP, LIPID #### [address] [address] Cholesterol in HDL [Mass/Vol] 59 mg/dL Normal 40-60 [facility] ([place]) Comment on above: Performed By: #### G FR, CMP, LIPID #### [address] [address] Cholesterol in LDL [Mass/Vol] 120 mg/dL Normal 0-130 [facility] ([place]) Comment on above: Performed By: #### G FR, CMP, LIPID #### [address] [address] Triglyceride [Mass/Vol] 96 mg/dL Normal 0-150 [facility] ([place]) Comment on above: Result Comment: Trig lyceride Reference Interval: Less than 150 Normal 150-199 Borderline high risk 200-499 High risk 500 or higher Very high risk Performed By: #### G FR, CMP, LIPID #### [address] [address] MALBRon 03-14-2024 U Creatinine 258.8 mg/dL High 28.0-117.0 [facility] ([place]) Comment on above: Performed By: #### G FR, CMP, LIPID #### [address] [address] U Microalb 2856 mcg/dL Normal [facility] ([place]) Comment on above: Performed By: #### G FR, CMP, LIPID #### [place] [address] [address] U Ratio Alb/Cre 11 mcg/mg Normal 0-30 [facility] ([place]) Comment on above: Performed By: #### G FR, CMP, LIPID #### [address] [address] TSHon 03-14-2024 TSH Qn 1.69 m[IU]/L Normal 0.36-3.74 [facility] ([place]) Comment on above: Performed By: #### F T4, LIPID, A1C, ANEU, GFR, TSH, CMP, CBC, VIDH, ADIFF #### [address] [address] VIDHon 03-14-2024 Vit. D 25-Hydroxy 15.6 ng/mL Normal [facility] ([place]) Comment on above: Result Comment: Inte rpretive Values Based on Total 25(OH) Vitamin D: Deficient <20 ng/mL Insufficient 20 - <30 ng/mL Sufficient 30-100 ng/mL Performed By: #### F T4, LIPID, A1C, ANEU, GFR, TSH, CMP, CBC, VIDH, ADIFF #### [address] [address] DIRECT LDLon 10-08-2023 LDL Chol Direct 106 mg/dL High 0-99 [facility] ([place]) Comment on above: Result Comment: Perf ormed At: [facility] [address] [id number] Luan Barroso PhD Ph:[phone] Performed By: #### G FR, CMP, LIPID #### [address] [address] .GFRon 10-07-2023 GFR 87 ml/min/1.73sqm Normal [facility] ([place]) Comment on above: Result Comment: GFR Population mean for , Non- Americans Ages 20-29 = 116 mL/min/1.73 sq.m. Ages 30-39 = 107 mL/min/1.73 sq.m. Ages 40-49 = 99 mL/min/1.73 sq.m. Ages 50-59 = 93 mL/min/1.73 sq.m. Ages 60-69 = 85 mL/min/1.73 sq.m. Ages 70+ = 75 mL/min/1.73 sq.m. Chronic Kidney Disease: Less than 60 mL/min/1.73 square meters End Stage Renal Disease: Less than 15 mL/min/1.73 square meters Performed By: #### G FR, CMP, LIPID #### [address] [address] GFR Non- 72 ml/min/1.73sqm Normal [facility] ([place]) Comment on above: Result Comment: GFR Population mean for , Non- Americans Ages 20-29 = 116 mL/min/1.73 sq.m. Ages 30-39 = 107 mL/min/1.73 sq.m. Ages 40-49 = 99 mL/min/1.73 sq.m. Ages 50-59 = 93 mL/min/1.73 sq.m. Ages 60-69 = 85 mL/min/1.73 sq.m. Ages 70+ = 75 mL/min/1.73 sq.m. Chronic Kidney Disease: Less than 60 mL/min/1.73 square meters End Stage Renal Disease: Less than 15 mL/min/1.73 square meters Performed By: #### G FR, CMP, LIPID #### [address] [address] CMPon 10-07-2023 Albumin Level 3.7 G/dL Normal 3.5-5.0 [facility] ([place]) Comment on above: Performed By: #### G FR, CMP, LIPID #### [address] [address] Albumin/Globulin [Mass ratio] 1.0 {ratio} Low 1.1-2.5 [facility] ([place]) Comment on above: Performed By: #### G FR, CMP, LIPID #### [address] [address] ALP [Catalytic activity/Vol] 109 U/L Normal 40-135 [facility] ([place]) Comment on above: Performed By: #### G FR, CMP, LIPID #### [address] [address] ALT [Catalytic activity/Vol] 41 U/L Normal 14-59 [facility] ([place]) Comment on above: Performed By: #### G FR, CMP, LIPID #### [address] [address] AST [Catalytic activity/Vol] 24 U/L Normal 10-40 [facility] ([place]) Comment on above: Performed By: #### G FR, CMP, LIPID #### [address] [address] Bili Total 1.2 mg/dL High 0.2-1.0 [facility] ([place]) Comment on above: Result Comment: Use of this assay is not recommended for patients undergoing treatment with eltrombopag due to the potential for falsely elevated results. Performed By: #### G FR, CMP, LIPID #### [address] [address] BUN/Creatinine Ratio 12 ratio Normal 7-27 [facility] ([place]) Comment on above: Performed By: #### G FR, CMP, LIPID #### [address] [address] Calcium [Mass/Vol] 9.0 mg/dL Normal 8.4-10.2 [facility] ([place]) Comment on above: Performed By: #### Davonte FR, CMP, LIPID #### [address] [address] Chloride [Moles/Vol] 102 mmol/L Normal 98-107 [facility] ([place]) Comment on above: Performed By: #### G FR, CMP, LIPID #### [address] [address] CO2 [Moles/Vol] 31 mmol/L High 22-29 [facility] ([place]) Comment on above: Performed By: #### G FR, CMP, LIPID #### [address] [address] Creatinine [Mass/Vol] 0.84 mg/dL Normal 0.55-1.02 Counts include 234 beds at the [facility] ([place]) Comment on above: Performed By: #### G FR, CMP, LIPID #### [address] [address] Electrolyte Balance 8.0 mEq/L Normal 4.0-15.0 [facility] ([place]) Comment on above: Performed By: #### Davonte FR CMP, LIPID #### [address] [address] Globulin 3.8 G/dL Normal [facility] ([place]) Comment on above: Performed By: #### Davonte ZAMAN CMP, LIPID #### [address] [address] Glucose [Mass/Vol] 111 mg/dL High 70-105 [facility] ([place]) Comment on above: Performed By: #### G FR CMP, LIPID #### [address] [address] Potassium [Moles/Vol] 4.2 mmol/L Normal 3.5-5.1 Counts include 234 beds at the [facility] ([place]) Comment on above: Performed By: #### Davonte ZAMAN CMP, LIPID #### [address] [address] Sodium [Moles/Vol] 141 mmol/L Normal 136-145 [facility] ([place]) Comment on above: Performed By: #### Davonte ZAMAN CMP, LIPID #### [address] [address] Total Protein 7.5 G/dL Normal 6.4-8.2 [facility] ([place]) Comment on above: Performed By: #### Davonte ZAMAN CMP, LIPID #### [address] [address] Urea nitrogen [Mass/Vol] 10 mg/dL Normal 7-18 [facility] ([place]) Comment on above: Performed By: #### Davonte ZAMAN CMP, LIPID #### [address] [address] LABORATORYOrdered By: SYSTEM SYSTEM on 10-07-2023 Albumin BCP dye [Mass/Vol] 3.7 G/dL Normal 3.5 - 5.0 G/dL AO ADM SS Albumin/Globulin [Mass ratio] 1.0 {ratio} Low 1.1 - 2.5 ratio AO ADM SS ALP [Catalytic activity/Vol] 109 U/L Normal 40 - 135 U/L AO ADM SS ALT With P-5'-P [Catalytic activity/Vol] 41 U/L Normal 14 - 59 U/L AO ADM SS AST With P-5'-P [Catalytic activity/Vol] 24 U/L Normal 10 - 40 U/L AO ADM SS Bilirubin [Mass/Vol] 1.2 mg/dL High 0.2 - 1 .0 mg/dL AO ADM SS Comment on above: Interpretive Data: U se of this assay is not recommended for patients undergoing treatment with eltrombopag due to the potential for falsely elevated results. Calcium [Mass/Vol] 9.0 mg/dL Normal 8.4 - 10. 2 mg/dL AO ADM SS Chloride [Moles/Vol] 102 mmol/L Normal 98 - 10 7 mmol/L AO ADM SS CO2 [Moles/Vol] 31 mmol/L High 22 - 29 mmol/L AO ADM SS Creatinine [Mass/Vol] 0.84 mg/dL Normal 0.55 - 1.02 mg/dL AO ADM SS Electrolyte Balance 8.0 mEq/L Normal 4.0 - 15 .0 mEq/L AO ADM SS GFR/1.73 sq M.predicted among blacks MDRD (S/P/Bld) [Vol rate/Area] 87 ml/min/1.73sqm Invalid Interpretation Code AO Chemistry S Comment on above: Interpretive Data: GFR Population mean for , Non- Americans Ages 20-29 = 116 mL/min/1.73 sq.m. Ages 30-39 = 107 mL/min/1.73 sq.m. Ages 40-49 = 99 mL/min/1.73 sq.m. Ages 50-59 = 93 mL/min/1.73 sq.m. Ages 60-69 = 85 mL/min/1.73 sq.m. Ages 70+ = 75 mL/min/1.73 sq.m. Chronic Kidney Disease: Less than 60 mL/min/1.73 square meters End Stage Renal Disease: Less than 15 mL/min/1.73 square meters GFR/1.73 sq M.predicted among non-blacks MDRD (S/P/Bld) [Vol rate/Area] 72 ml/min/1.73sqm Invalid Interpretation Code AO Chemistry S Comment on above: Interpretive Data: GFR Population mean for , Non- Americans Ages 20-29 = 116 mL/min/1.73 sq.m. Ages 30-39 = 107 mL/min/1.73 sq.m. Ages 40-49 = 99 mL/min/1.73 sq.m. Ages 50-59 = 93 mL/min/1.73 sq.m. Ages 60-69 = 85 mL/min/1.73 sq.m. Ages 70+ = 75 mL/min/1.73 sq.m. Chronic Kidney Disease: Less than 60 mL/min/1.73 square meters End Stage Renal Disease: Less than 15 mL/min/1.73 square meters Globulin 3.8 G/dL Invalid Interpretation Code AO ADM SS Glucose [Mass/Vol] 111 mg/dL High 70 - 105 mg/dL AO ADM SS Potassium [Moles/Vol] 4.2 mmol/L Normal 3.5 - 5.1 mmol/L AO ADM SS Protein [Mass/Vol] 7.5 G/dL Normal 6.4 - 8.2 G/dL AO ADM SS Sodium [Moles/Vol] 141 mmol/L Normal 136 - 145 mmol/L AO ADM SS Urea nitrogen [Mass/Vol] 10 mg/dL Normal 7 - 18 mg/dL AO ADM SS Urea nitrogen/Creatinine [Mass ratio] 12 ratio Normal 7 - 27 ratio AO ADM SS LABORATORYOrdered By: Chilo Quispe on 10-07-2023 Cholesterol [Mass/Vol] 185 mg/dL Normal 0 - 200 mg/dL AO ADM SS Comment on above: Interpretive Data: C holesterol Reference Interval: Less than 200 Desirable 200-239 Borderline high risk 240 and above High risk Cholesterol in HDL [Mass/Vol] 53 mg/dL Normal 40 - 60 mg/dL AO ADM SS Cholesterol in LDL [Mass/Vol] 104 mg/dL Normal 0 - 130 mg/dL AO ADM SS Triglyceride [Mass/Vol] 140 mg/dL Normal 0 - 150 mg/dL AO ADM SS Comment on above: Interpretive Data: T riglyceride Reference Interval: Less than 150 Normal 150-199 Borderline high risk 200-499 High risk 500 or higher Very high risk LIPIDon 10-07-2023 Cholesterol [Mass/Vol] 185 mg/dL Normal 0-200 [facility] ([place]) Comment on above: Result Comment: Chol esterol Reference Interval: Less than 200 Desirable 200-239 Borderline high risk 240 and above High risk Performed By: #### G FR, CMP, LIPID #### [address] [address] Cholesterol in HDL [Mass/Vol] 53 mg/dL Normal 40-60 [facility] ([place]) Comment on above: Performed By: #### G FR, CMP, LIPID #### [address] [address] Cholesterol in LDL [Mass/Vol] 104 mg/dL Normal 0-130 [facility] ([place]) Comment on above: Performed By: #### G FR, CMP, LIPID #### [address] [address] Triglyceride [Mass/Vol] 140 mg/dL Normal 0-150 [facility] ([place]) Comment on above: Result Comment: Trig lyceride Reference Interval: Less than 150 Normal 150-199 Borderline high risk 200-499 High risk 500 or higher Very high risk Performed By: #### G FR, CMP, LIPID #### [address] [address] .Urinalysis Microscopic (AO) on 07-17-2023 UA CA Ox Crystal 1+ /hpf Normal [facility] ([place]) Comment on above: Performed By: #### G FR, CMP, LIPID #### [address] [address] UA RBC 0-5 Abnormal None Seen [facility] ([place]) Comment on above: Performed By: #### G FR, CMP, LIPID #### [address] [address] UA Squam Epithelial 0-5 Abnormal None Seen [facility] ([place]) Comment on above: Performed By: #### G FR, CMP, LIPID #### [address] [address] UA WBC 0-5 Abnormal None Seen [facility] ([place]) Comment on above: Performed By: #### G FR, CMP, LIPID #### [place] [address] UAon 07-17-2023 Color (U) Yellow Normal [facility] ([place]) Comment on above: Performed By: #### G FR, CMP, LIPID #### [address] [address] Glucose (U) [Mass/Vol] Negative Normal Negative [facility] ([place]) Comment on above: Performed By: #### G FR, CMP, LIPID #### [address] [address] Ketones Ql (U) Trace Abnormal Negative [facility] ([place]) Comment on above: Performed By: #### G FR, CMP, LIPID #### [address] [address] UA Appear Clear Normal Clear [facility] ([place]) Comment on above: Performed By: #### G FR, CMP, LIPID #### [address] [address] UA Blood Trace Abnormal Negative [facility] ([place]) Comment on above: Performed By: #### G FR, CMP, LIPID #### [address] [address] UA Leuk Est Negative Normal Negative [facility] ([place]) Comment on above: Performed By: #### G FR, CMP, LIPID #### [address] [address] UA Nitrite Negative Normal Negative [facility] ([place]) Comment on above: Performed By: #### G FR, CMP, LIPID #### [address] [address] UA pH 5.5 Normal 5.0 - 8.0 [facility] ([place]) Comment on above: Performed By: #### G FR, CMP, LIPID #### [address] [address] UA Protein Negative Normal Negative [facility] ([place]) Comment on above: Performed By: #### G FR, CMP, LIPID #### [place] [id number] UA Spec Grav >=1.030 Abnormal 1.015-1.025 [facility] ([place]) Comment on above: Performed By: #### G FR, CMP, LIPID #### [place] [address] UA Specimen Type Not Given Normal [facility] ([place]) Comment on above: Performed By: #### G FR, CMP, LIPID #### [place] [id number] UA Urobilinogen 0.2 E.U./dL Normal 0.2-1.0 [facility] ([place]) Comment on above: Performed By: #### G , CMP, LIPID #### [place] [address] Urobilinogen (U) [Mass/Vol] Negative Normal Negative [facility] ([place]) Comment on above: Performed By: #### G , CMP, LIPID #### [place] [address] LABORATORYOrdered By: Bria Guzman on 07-16-2023 Appearance (U) Clear (07/16/23 4:40 PM) Invalid Interpretation Code Clear AO Auto Urine SS Bilirubin Ql (U) Negative (07/16/23 4:40 PM) Invalid Interpretation Code Negative AO Auto Urine SS Calcium oxalate crystals LM.HPF (Urine sed) [#/Area] 1 /[HPF] Invalid Interpretation Code AO Auto Urine SS Color (U) Yellow (07/16/23 4:40 PM) Invalid Interpretation Code AO Auto Urine SS Glucose Test strip (U) [Mass/Vol] Negative Invalid Interpretation Code Negative AO Auto Urine SS Hemoglobin Auto test strip (U) [Mass/Vol] Trace *ABN* (07/16/23 4:40 PM) Invalid Interpretation Code Negative AO Auto Urine SS Ketones Ql (U) Trace mg/dL Invalid Interpretation Code Negative AO Auto Urine SS UA Leuk Est Negative (07/16/23 4:40 PM) Invalid Interpretation Code Negative AO Auto Urine SS UA Nitrite Negative (07/16/23 4:40 PM) Invalid Interpretation Code Negative AO Auto Urine SS UA pH 5.5 (07/16/23 4:40 PM) Invalid Interpretation Code 5.0 - 8.0 AO Auto Urine SS UA Protein Negative Invalid Interpretation Code Negative AO Auto Urine SS UA RBC 0-5 /HPF Invalid Interpretation Code None Seen AO Auto Urine SS UA Spec Grav >=1.030 *ABN* (07/16/23 4:40 PM) Invalid Interpretation Code 1.015-1.025 AO Auto Urine SS UA Specimen Type Not Given (07/16/23 4:40 PM) Invalid Interpretation Code AO Auto Urine SS UA Squam Epithelial 0-5 /HPF Invalid Interpretation Code None Seen AO Auto Urine SS UA Urobilinogen 0.2 E.U./dL Invalid Interpretation Code 0.2-1.0 AO Auto Urine SS WBC LM.HPF (Urine sed) [#/Area] 0-5 /HPF Invalid Interpretation Code None Seen AO Auto Urine SS Direct LDLon 07-10-2023 LDL Cholesterol Direct 177 mg/dL High <100 [facility] ([place]) Comment on above: Result Comment: <100 mg/dL, Optimal 100-129 mg/dL, Near optimal/above optimal 130-159 mg/dL, Borderline high 160-189 mg/dL, High >189 mg/dL, Very high Secondary prevention optimal LDL Cholesterol levels are recommended to be < 70 mg/dL Performed By: [facility] [place] [address] Practice Assistant: Hector Carvajal III, M.D. CLIA#: [id number] Performed By: #### Davonte ZAMAN, CMP, LIPID #### [place] [address] [address] VLDL Cholesterol See Below Normal [facility] ([place]) Comment on above: Result Comment: Test not indicated. Performed By: [place] [address] Practice Assistant: Hector Carvajal III, M.D. CLIA#: [id number] Performed By: #### Davonte ZAMAN, CMP, LIPID #### [place] [id number] [place] [id number] LABORATORYOrdered By: Keya Golden on 07-09-2023 Cholesterol [Mass/Vol] 254 mg/dL Invalid Interpretation Code 0 - 200 mg/dL AO ADM SS Comment on above: Interpretive Data: C holesterol Reference Interval: Less than 200 Desirable 200-239 Borderline high risk 240 and above High risk Cholesterol in HDL [Mass/Vol] 58 mg/dL Invalid Interpretation Code 40 - 60 mg/dL AO ADM SS Cholesterol in LDL [Mass/Vol] 176 mg/dL Invalid Interpretation Code 0 - 130 mg/dL AO ADM SS Triglyceride [Mass/Vol] 99 mg/dL Invalid Interpretation Code 0 - 150 mg/dL AO ADM SS Comment on above: Interpretive Data: T riglyceride Reference Interval: Less than 150 Normal 150-199 Borderline high risk 200-499 High risk 500 or higher Very high risk LIPIDon 07-09-2023 Cholesterol [Mass/Vol] 254 mg/dL High 0-200 [facility] ([place]) Comment on above: Result Comment: Chol esterol Reference Interval: Less than 200 Desirable 200-239 Borderline high risk 240 and above High risk Performed By: #### G FR, CMP, LIPID #### [address] [address] Cholesterol in HDL [Mass/Vol] 58 mg/dL Normal 40-60 [facility] ([place]) Comment on above: Performed By: #### G FR, CMP, LIPID #### [address] [address] Cholesterol in LDL [Mass/Vol] 176 mg/dL High 0-130 [facility] ([place] Comment on above: Performed By: #### G FR, CMP, LIPID #### [address] [address] Triglyceride [Mass/Vol] 99 mg/dL Normal 0-150 [facility] ([place]) Comment on above: Result Comment: Trig lyceride Reference Interval: Less than 150 Normal 150-199 Borderline high risk 200-499 High risk 500 or higher Very high risk Performed By: #### G FR, CMP, LIPID #### [address] [address] SCRN MAMM (CAD)W/JESS Negra n 11-13-2021 SCRN MAMM (CAD)W/JESS ESCOBEDO [facility] Imaging Services [address] [place] [id number] SCRN MAMM (CAD)W/JESS ESCOBEDO MR#: [id number] Acct: [id number] Name: GOPAL LAMA Rep #: [id number] : 1975 F 45 From: Kenny dela cruz MD PCP: Care Physician,No Primary Status: [facility] Study: SCRN MAMM (CAD)W/JESS BILAT Date of Exam: 11/01 01/20 Exam# [id number] Ordering Dr: Ponce Duff MD MAMMOGRAPHY - BILATERAL SCREENING REASON FOR EXAM: Female, 45 years old. Routine annual screening examination. PERTINENT HISTORY: Mother with breast cancer. Remote left stereotactic breast biopsy. TECHNIQUE: Digital bilateral breast jess (3D mammographic acquisition) in the CC and MLO projections. 2-D mediolateral oblique (MLO) and craniocaudad (CC) views of both breasts were obtained. CAD: Full Field Digital Mammography with Computer Added Detection was performed. COMPARISON: Comparison is made with prior study dated 09/27/2020 and 05/11/2019. FINDINGS: Breast Composition: There are scattered areas of fibroglandular density. There are no dominant masses or suspicious calcifications. No other significant abnormalities are identified. There has been no significant change since the prior study. BI/SCRN MAMM (CAD)W/JESS BILAT IMPRESSION: Stable bilateral screening mammogram. Yearly follow-up mammogram recommended. (A) ASSESSMENT CATEGORY: BIRADS Category 1: Negative. A letter regarding these results will be sent to the patient by the facility within 30 days. Approximately 10% of breast cancers are not detected by mammography. A normal mammogram should not delay biopsy of a clinically suspicious abnormality. [id number] Electronically Signed: Kenny Trinh MD at 13:44 EST , Service support , CC: Dr. Pocne Duff MD; No Primary Care Physician Piecer: Signed Normal [facility] Vital Signs Date Time Vital Sign Value Performing Clinician Facility 05-16-2025 16:20-0400 Body temperature 97.4 [degF] No Primary Care Physician [facility] 05-16-2025 16:20-0400 Diastolic blood pressure 108 mm[Hg] No Primary Care Physician [facility] 05-16-2025 16:20-0400 Heart rate 76 /min No Primary Care Physician [facility] 05-16-2025 16:20-0400 Respiratory rate 16 /min No Primary Care Physician [facility] 05-16-2025 16:20-0400 SaO2% (BldA) [Mass fraction] 96 % No Primary Care Physician [facility] 05-16-2025 16:20-0400 Systolic blood pressure 164 mm[Hg] No Primary Care Physician [facility] 05-16-2025 13:52-0400 Body height 175.26 cm No Primary Care Physician [facility] 05-16-2025 13:52-0400 Body mass index (BMI) [Ratio] 40.6 kg/m2 No Primary Care Physician [facility] 05-16-2025 13:52-0400 Body weight 125 kg No Primary Care Physician [facility] 07-13-2024 15:14-0400 Diastolic Blood Pressure Non-Invasive 87 mm[Hg] SOFIA MARCUS MD [facility] 07-13-2024 15:14-0400 Heart rate 86 /min SOFIA MARCUS MD [facility] 07-13-2024 15:14-0400 Respiratory rate 19 /min SOFIA MARCUS MD [facility] 07-13-2024 15:14-0400 Systolic Blood Pressure Non-Invasive 132 mm[Hg] SOFIA MARCUS MD [facility] 07-13-2024 14:30-0400 Diastolic Blood Pressure Non-Invasive 95 mm[Hg] SOFIA MARCUS MD [facility] 07-13-2024 14:30-0400 Heart rate 76 /min SOFIA MARCUS MD [facility] 07-13-2024 14:30-0400 Respiratory rate 22 /min SOFIA MARCUS MD [facility] 07-13-2024 14:30-0400 Systolic Blood Pressure Non-Invasive 131 mm[Hg] SOFIA MARCUS MD [facility] 07-13-2024 14:21-0400 Diastolic Blood Pressure Non-Invasive 97 mm[Hg] SOFIA MARCUS MD [facility] 07-13-2024 14:21-0400 Heart rate 70 /min SOFIA MARCUS MD [facility] 07-13-2024 14:21-0400 Respiratory rate 20 /min SOFIA MARCUS MD [facility] 07-13-2024 14:21-0400 Systolic Blood Pressure Non-Invasive 135 mm[Hg] SOFIA MARCUS MD [facility] 07-13-2024 13:45-0400 Heart rate 77 /min SOFIA MARCUS MD [facility] 07-13-2024 13:30-0400 Heart rate 80 /min SOFIA MARCUS MD [facility] 07-13-2024 13:25-0400 Heart rate 76 /min SOFIA MARCUS MD [facility] 07-13-2024 13:15-0400 Body temperature 96.8 [degF] SOFIA MARCUS MD [facility] 07-13-2024 13:10-0400 Respiratory Rate - Anes 3 br/min SOFIA MARCUS MD [facility] 07-13-2024 13:05-0400 Respiratory Rate - Anes 11 br/min SOFIA MARCUS MD [facility] 07-13-2024 13:00-0400 Respiratory Rate - Anes 12 br/min SOFIA MARCUS MD [facility] 07-13-2024 12:15-0400 Body temperature 98.6 [degF] SOFIA MARCUS MD [facility] 07-13-2024 11:03-0400 Body height 175 cm SOFIA MARCUS MD [facility] 07-13-2024 11:03-0400 Body temperature 97.34 [degF] SOFIA MARCUS MD [facility] 07-13-2024 11:03-0400 Body weight 118.8 kg SOFIA MARCUS MD [facility] 06-22-2024 08:06-0400 Body height 176 cm SOFIA MARCUS MD [facility] 06-22-2024 08:06-0400 Body weight 113.6 kg SOFIA MARCUS MD [facility] 06-22-2024 08:06-0400 Body weight 36.67 kg/m2 SOFIA MARCUS MD [facility] 06-22-2024 08:06-0400 Diastolic Blood Pressure Non-Invasive 86 mm[Hg] SOFIA MARCUS MD [facility] 06-22-2024 08:06-0400 Heart rate 97 /min SOFIA MARCUS MD [facility] 06-22-2024 08:06-0400 Respiratory rate 20 /min SOFIA MARCUS MD [facility] 06-22-2024 08:06-0400 Systolic Blood Pressure Non-Invasive 131 mm[Hg] SOFIA MARCUS MD [facility] Encounters Encounter Date Encounter Type Care Provider Facility Start: 05-16-2025 End: 05-16-2025 Admission to same day surgery center Dr. Neeraj Smith MD -[facility] Day [facility] Start: 05-16-2025 End: 05-16-2025 ambulatory No Primary Care Physician -Surgical Day Care Start: 05-14-[address] Neeraj Smith MD -Radiology [facility] Work Phone: Start: 05-07-2025 End: 05-08-2025 Emergency department patient visit JIE FERNANDEZ MD [facility] Start: 2024 End: 2024 ambulatory HUY DONALD DO Facility:[facility] Start: 2024 End: 2024 Patient encounter procedure HUY DONALD DO [facility] Start: 07-13-2024 End: 07-13-2024 ambulatory SOFIA MARCUS Facility:[facility] Start: 07-13-2024 End: 07-13-2024 SAME DAY STAY SOFIA MARCUS MD [facility] Start: 06-22-2024 End: 06-22-2024 Admission to establishment SOFIA MARCUS MD [facility] Start: 06-22-2024 End: 06-22-2024 ambulatory SOFIA MARCUS MD Facility:B Start: 05-25-2024 ambulatory SOFIA MARCUS MD Facili ty:B Start: 05-19-2024 End: 05-19-2024 ambulatory HUY DONALD DO Facility:[facility] Start: 05-19-2024 End: 05-19-2024 Patient encounter procedure HUY DONALD DO [facility] Start: 03-14-2024 End: 03-15-2024 ambulatory MARIE ZHAO [facility] Start: 03-14-2024 End: 03-14-2024 Patient encounter procedure HUY DONALD DO [facility] Start: 03-14-2024 End: 03-14-2024 Subsequent hospital visit by physician Mark Cu[address] [facility] Comment on above: Family history of is chemic heart disease and other diseases of the circulatory system; Essential (primary) hypertension; Palpitations Start: 12-27-2023 ambulatory HUY DONALD DO Faci lity:B Start: 10-07-2023 End: 10-07-2023 ambulatory HUY DONALD DO Facility:[facility] Start: 10-07-2023 End: 10-07-2023 Patient encounter procedure HUY DONALD DO [facility] Start: 07-16-2023 End: 07-20-2023 ambulatory HUY DONALD DO Facility:[facility] Start: 07-16-2023 End: 07-20-2023 Outreach Lab HUY DONALD DO [facility] Start: 07-09-2023 End: 07-09-2023 ambulatory HUY DONALD DO Facility:[facility] Start: 07-09-2023 End: 07-09-2023 Patient encounter procedure HUY Marleen DONALD DO [facility] Start: 01-21-2023 End: 01-21-2023 Patient encounter procedure HUY DONALD DO [facility] Start: 01-21-2023 End: 01-25-2023 Outreach Lab DOLORES SHERIFF MD [facility] Procedures Date Procedure Procedure Detail Performing Clinician Start: 05-16-2025 Extracorporeal shock wave lithotripsy No Primary Care Physician Start: 05-16-2025 Plain X-ray abdomen No Primary Care Physician Start: 05-14-2025 Plain X-ray abdomen No Primary Care Physician Start: 07-13-2024 Hernia repair SOFIA VALE MD Comment on above: OPEN UMBILICAL HERNI A REPAIR Start: 03-14-2024 CT CARDIAC SCORING W O IV CONTRAST MARIE GARG Start: 11-01-1994 Colonoscopy SOFIA MISTRY MD section SOFIA MARINO MD Left breast structur e (body structure) HUY DONALD DO Comment on above: biopsy Wrist region structu re (body structure) HUY DONALD DO Comment on above: left Wrist region structu re (body structure) SOFIA MARCUS MD Comment on above: left EXCISION 2 CYST Plan of Treatment Date Care Activity Detail Author Start: 11-25-2028 DTaP/Tdap/Td Vaccine s (2 - Td or Tdap) DTaP/Tdap/Td Vaccines (2 - Td or Tdap) [facility] Start: 05-16-2025 Ambulation without limitation [facility] Start: 05-16-2025 Medical regimen orde rs management [facility] Start: 05-16-2025 Medication education [facility] Start: 05-16-2025 End: 05-16-2025 Patient discharge [facility] Start: 05-16-2025 Taking patient vital signs [facility] Start: 05-16-2025 [place] Start: 07-02-2024 Influenza vaccination Influenz a Vaccine (Season Ended) [facility] Start: 2023 Zoster Vaccines (1 of 2) Zoste r Vaccines (1 of 2) [facility] Start: 07-02-2023 COVID-19 Vaccine ( season) COVID-19 Vaccine ( season) [facility] Start: 2013 Screening for malign ant neoplasm of breast Mammogram [facility] Start: 1994 Screening for malign ant neoplasm of cervix [facility] Start: 1992 Hepatitis B Vaccines (1 of 3 - 19+ 3-dose series) Hepatitis B Vaccines (1 of 3 - 19+ 3-dose series) [facility] Start: 1991 [facility]: [facility] MMR Vaccines (1 of 1 - Standard series) MMR Vaccines (1 of 1 - Standard series) [facility] Start: 1973 HIV screening HIV Screening [facility] Start: 1973 Lipid panel Lipid Panel [facility] Start: 1973 Screening for malign ant neoplasm of colon [facility] Start: 1973 Yearly Adult Physical Yearly Adult P hysical [facility] End: 03-14-2024 CT for calcium scoring WO contrast and CTA W contrast IV Heart and coronary arteries [facility] Service Area Work Phone: Comment on above: Once for 1 Occurrenc es starting 03/14/2024 until 03/14/2024 Immunizations Immunization Date Immunization Notes Care Provider Jam [email or web address] 11-25-2018 tetanus toxoid, redu jillian diphtheria toxoid, and acellular pertussis vaccine, adsorbed HUY DONALD DO [facility] Payers Date Payer Category Payer Private Health Insurance [id number] 2025 Unknown [id number] 2021 Unknown [id number] 2009 Unknown [id number] 1975 Unknown [id number] 2.16.8 [id number] 1975 Unknown [id number] 2.16.8 [id number] 1975 Unknown [id number] 2.16.8 [id number] 1975 Unknown [id number] 2.16.8 [id number] 1975 Unknown [id number] 2.16.8 [id number] 1975 Unknown [id number] 2.16.8 [id number] 1975 Unknown [id number] 2.16.8 [id number] 1975 Unknown [id number] 2.16.8 [id number] 1975 Unknown [id number] 2.16.8 [id number] 1975 Unknown [id number] 2.16. [id number] 1975 Unknown [id number] 2.16. [id number] 1975 Unknown [id number] 2.16.8 [id number] 1975 Unknown [id number] 2.16.8 [id number] Social History Date Type Detail Facility Start: 06-28-2019 End: 05-14-2025 Tobacco smoking status Never smoked tobacco (finding) [facility] Sex Assigned At [facility] Tobacco smoking status [facility] Tobacco smoking consumption unknown [facility] Work Phone: Start: 1975 Sex assigned at Not on file [facility] Work Phone: Gender identity Not on file [facility] Work Phone: Start: 04-17-2014 Sex Female (finding) [facility] Start: 1975 Sex Assigned At Female [facility] NEGATED: Highlighted row Not [facility] Goals Date Patient Goal Desired Activity /State Functional Status Date Assessment Result Facility 07-13-2024 Functional Status Standard Safet y ID band on, Safety level maintained [facility] 07-13-2024 Functional Status ice on [facility] 07-13-2024 Functional Status Maintained [facility] 06-22-2024 Functional Status Sensory Deficits None [facility] Mental Status Date Assessment Result Facility 05-16-2025 Cognitive function Voice/Name [facility] Work Phone: 07-13-2024 Mental Status Oriented x 4 [facility] Clinical Notes 06-22-2024 to 05-16-2025 Note Date & Type Note Facility 05-16-2025 Consult note [facility] 05-16-2025 Consult note [facility] 05-16-2025 Discharge summary [facility] 05-16-2025 History and physical note [facility] 05-16-2025 Consult note Note Date/Time May 16, 2025 2:41pm [facility] Medical Records Department [address] [place] [address] Pre-Anesthesia Evaluation 05/16/25 1348 MR#: [id number] Acct: [id number] Name: GOPAL LAMA LG Rep #:[id number] : 1975 49 From: Mauri Barnes MD PCP: Dr. Huy Donald, DO Status:REG SDC Y Race: C Location: [place] [address] ASA Classification* ASA Classification ASA Classification: 3 Assessment & Plan Anesthesia* Anesthesia Assessment Anesthesia Assessment: Discussed sedation and/or anesthesia options, risks, benefits, and alternatives with patient/parents/legal guardian/POA. Questions invited. The patient/parents/legal guardian/POA seems to understand and agrees to proceedwith anesthesia plan. Reviewed the physical assessment, medical history, allergy history and patient home medications list prior to surgery/procedure/anesthetic and documented any changes. Performed airway and anesthesia risk assessments. 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 When Was Last Pacemaker Check QUESTION #4 FULL TEXT: You/Your Family Experience fever (hyperthermia) with Anesthesia Last Oral Intake Last Oral intake: Last Oral Intake NPO since Meds taken in AM with sips of water? 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 Female Yes 05/14/25 12:15 HX of Motion Sickness No 05/14/25 12:15 HX of N/V After Surgery No 05/14/25 12:15 Non-Smoker Yes 05/14/25 12:15 Duration of Surgery greater No 05/14/25 12:15 than 60 minutes Number of Risk Factors 2 05/14/25 12:15 PONV Score Moderate Risk 05/14/25 12:15 Respiratory Assessment Respiratory Assessment - vehicle maintenance technician: Respiratory Tract Infection Hx - vehicle maintenance technician Hx Respiratory Tract Infection No 05/14/25 12:15 STOP Sleep Apnea STOP Sleep Apnea - vehicle maintenance technician: STOP Sleep Apnea - vehicle maintenance technician Hx Hypertension Yes: CONTROLLED ON MED 05/14/25 12:15 Hx Sleep Apnea No 05/14/25 12:15 CPAP BIPAP Do you snore loudly (louder Yes 05/14/25 12:15 than talking or can be heard Do you often feel tired/ No 05/14/25 12:15 fatigued/ sleepy during daytime? Has anyone observed you stop No 05/14/25 12:15 breathing during sleep? STOP Results Positive 05/14/25 12:15 QUESTION #5 FULL TEXT : Do you snore loudly (louder than talking or can be heard through closed doors)? 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 Specify any problems Hx of Preganancy in last 3 No 05/14/25 12:15 Months Nurse Filling Out Transfusion VCHRISTIN 05/14/25 12:15 & Questions: Date: 05/14/25 05/14/25 12:15 Time: 12:16 05/14/25 12:15 Patient unable to answer at this time (ie. confused, unrespo /Reproduction History /Reproductive History - vehicle maintenance technician: /Reproductive Hx- vehicle maintenance technician Hx Now No 05/14/25 12:15 Gestational Age (in weeks): EDC: Hx Hx Para Hx Section SAB No 05/14/25 12:15 Active Medications Active Medications: Current Medications Generic Name Dose Route Start Last Admin Trade Name Freq PRN Reason Stop Dose Admin Cefazolin Sodium 2 gm/ Sodium 110 mls @ 200 mls/hr 05/16/25 13:35 Chloride IV 05/16/25 14:07 INTRAOP ONE Lactated Ringer's 1,000 mls @ 15 mls/hr 05/16/25 13:00 IV .Q48H DEWAYNE PFSH Medical History (Updated 05/14/25 @ 12:14 by Louann Ryan) Kidney stones Non-smoker Hypertension Home Medications ?Medication ?Instructions ?Recorded ?Last Taken ?Type amlodipine 5 mg tablet 5 mg PO DAILY 05/14/25 Unkno wn History atorvastatin 10 mg tablet 10 mg PO DAILY 05/14/25 Unkn own History cholecalciferol (vitamin D3) 50 50 mcg PO DAILY Unknown History mcg (2,000 unit) capsule oxycodone-acetaminophen 5 mg-325 1 tab PO Q6H PRN PRN pain 05/14/25 Unknown History mg tablet psyllium husk 0.4 gram capsule 0.8 g PO DAILY 05/14/25 Unknown History (Daily Fiber) Allergy/AdvReac Type Severity Reaction Status Date / Time No Known Allergies Allergy Verified 05/16/25 13:49 Surgical History (Updated 05/14/25 @ 12:14 by Louann Ryan) Hx of removal of cyst Hx of section Hx of hernia repair Social History Smoking Status: Never smoker Review of Systems (Anesthesia) ROS Narrative System reviewed and no additional complaints, except as documented. 05/16/25 1441 <Electronically signed by Mauri Zaldivar> Date _ Mauri Barnes MD Cosigner Signature: Date CC: ~ Signed [facility] Work Phone: 1(264) 948-463207-16-2025 Procedure note [facility] Medical Records Department [address] [place] [address] Operative Report 05/16/25 1547 MR#: [id number] Acct: [id number] Name: GOPAL LAMA Rep #:[id number] : 1975 49 From: Neeraj Smith MD PCP: Dr. Huy Donald, DO [place] [facility] [address] Operative Report (Standard) Operative Information Date of Procedure: 05/16/25 Pre-Operative Diagnosis: Right mid ureteral calculi with obstruction Post-Operative Diagnosis: Same Surgery/Procedure Performed: Cystoscopy right stent placement right extracorporeal shockwave lithotripsy bias binding folder: No Type of Anesthesia: General RN Documented Start/Stop Times: Operation Date: 05/16/25 14:45 Case Time Into Pre-Op 05/16/25 12:59 Out of Pre-Op 05/16/25 14:43 Anesthesia Start 05/16/25 14:44 Into Room 05/16/25 14:44 Procedure Start 05/16/25 14:55 Procedure Start Time: 14:55 Procedure Stop Time: 15:47 Select all DRAINS/GRAFTS/IMPLANTS that apply: Drains Drain details: right stent Estimated Blood Loss: None Specimen collected: No Description of surgery: Patient presents to the hospital for treatment of a kidney stone with shockwave lithotripsy. In thepreoperative area and x-ray was done to confirm the location of the stone. The x-ray was reviewed and the stone location was reviewed. In the preoperative setting I spoke with the patient regarding the treatment of the stone how the treatment would be conducted and the expectationsafter surgery. The patient understands there is a risk of bleeding and infection. Also discussed the very rare risk of hematoma or damage to the kidney. We also discussed the risk that the shockwave machine will fail to break the stone adequately and that the patient may need other surgical procedures. I also discussed the possibility that the patient may need a stent after the procedure. After reviewing the procedure with the patient, the patient is signed the consent form all the patient's questions were addressed and was taken back to the operating room for treatment of a kidney stone. Patient was taken back to the operating room, the patient was identified by the nursing staff, I identified the side of the treatment and the patient side of treatment had been marked by my initials.The patient underwent general anesthetic and was placed supine on the lithotripter table. I then used fluoroscopy to identify the stone on the right side. I then positioned the patient under the lithotripter and I used triangulation technique to identify the location of the stone and then I made sure that the stone was engaged in theF2 focal point of F2 Donier lithoprior machine. Once the patientwas positionedappropriately and the stone was identified and placed in the F2 focal point of the lithotripter machine I then proceeded with shockwave lithotripsy. Then during the procedure we did a cystoscopy and right stent placement to facilitatefinding of the stone and also facilitate passing ofthe fragments the stone was not breaking until we put a stent in. In the beginning the shockwave was delivered at a rate of 90 shocks per minute, anesthesia monitored the EKG for any ectopy. The power was slowly increased to 5 kV and subsequently at the 7 kV. I then proceeded with the treatment with shock wave therapy and around during the treatment to make sure the stone stayed in the F2 focal point during the entire treatment and after 4000 shockwaves were delivered to the stone underfluoroscopic guidance the treatment was completed. The patient was given instructions to call the office to make an a follow-up appointment with an x- rayto evaluate the success of the treatment, patient understands that its possible the stones may need another procedure. At this point the patient's anesthetic was reversed patient was extubated and taken back to the PACU in stable condition. Surgical Findings: Stone in the mid right ureter with treated with shockwave lithotripsy and stent placed Complications Complications: No Admit VTE Documentation VTE Present on Admission: No VTE Mechan Device Prophylaxis: SCD's VTE Pharm Prophylaxis ordered?: No 05/16/25 1548 Cosigner Signature (if applicable): CC: Dr. Neeraj Smith MD; Dr. Huy Donald DO~ Signed [facility]07-16-2025 Consult note [facility] Medical Records Department [address] [place] [address] Pre-Anesthesia Evaluation 05/16/25 1348 MR#: [id number] Acct: [id number] Name: GOPAL LAMA Rep #:[id number] : 1975 49 From: Mauri Barnes MD PCP: Dr. Huy Donald DO Status:REG SDC Y Race: C Location: AC02-1 ASA Classification* ASA Classification ASA Classification: 3 Assessment & Plan Anesthesia* Anesthesia Assessment Anesthesia Assessment: Discussed sedation and/or anesthesia options, risks, benefits, and alternatives with patient/parents/legal guardian/POA. Questions invited. The patient/parents/legal guardian/POA seems to understand and agrees to proceedwith anesthesia plan. Reviewed the physical assessment, medical history, allergy history and patient home medications list prior to surgery/procedure/anesthetic and documented any changes. Performed airway and anesthesia risk assessments. 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 When Was Last Pacemaker Check QUESTION #4 FULL TEXT: You/Your Family Experience fever (hyperthermia) with Anesthesia Last Oral Intake Last Oral intake: Last Oral Intake NPO since Meds taken in AM with sips of water? 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 Female Yes 05/14/25 12:15 HX of Motion Sickness No 05/14/25 12:15 HX of N/V After Surgery No 05/14/25 12:15 Non-Smoker Yes 05/14/25 12:15 Duration of Surgery greater No 05/14/25 12:15 than 60 minutes Number of Risk Factors 2 05/14/25 12:15 PONV Score Moderate Risk 05/14/25 12:15 Respiratory Assessment Respiratory Assessment - vehicle maintenance technician: Respiratory Tract Infection Hx - vehicle maintenance technician Hx Respiratory Tract Infection No 05/14/25 12:15 STOP Sleep Apnea STOP Sleep Apnea - vehicle maintenance technician: STOP Sleep Apnea - vehicle maintenance technician Hx Hypertension Yes: CONTROLLED ON MED 05/14/25 12:15 Hx Sleep Apnea No 05/14/25 12:15 CPAP BIPAP Do you snore loudly (louder Yes 05/14/25 12:15 than talking or can be heard Do you often feel tired/ No 05/14/25 12:15 fatigued/ sleepy during daytime? Has anyone observed you stop No 05/14/25 12:15 breathing during sleep? STOP Results Positive 05/14/25 12:15 QUESTION #5 FULL TEXT : Do you snore loudly (louder than talking or can be heard through closeddoors)? 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 Specify any problems Hx of Preganancy in last 3 No 05/14/25 12:15 Months Nurse Filling Out Transfusion VCHRISTIN 05/14/25 12:15 & Questions: Date: 05/14/25 05/14/25 12:15 Time: 12:16 05/14/25 12:15 Patient unable to answer at this time (ie. confused, unrespo /Reproduction History /Reproductive History - vehicle maintenance technician: /Reproductive Hx- vehicle maintenance technician Hx Now No 05/14/25 12:15 Gestational Age (in weeks): EDC: Hx Hx Para Hx Section SAB No 05/14/25 12:15 Active Medications Active Medications: Current Medications Generic Name Dose Route Start Last Admin Trade Name Freq PRN Reason Stop Dose Admin Cefazolin Sodium 2 gm/ Sodium 110 mls @ 200 mls/hr 05/16/25 13:35 Chloride IV 05/16/25 14:07 INTRAOP ONE Lactated Ringer's 1,000 mls @ 15 mls/hr 05/16/25 13:00 IV .Q48H DEWAYNE PFSH Medical History (Updated 05/14/25 @ 12:14 by Louann Ryan) Kidney stones Non-smoker Hypertension Home Medications ?Medication ?Instructions ?Recorded ?Last Taken ?Type amlodipine 5 mg tablet 5 mg PO DAILY 05/14/25 Unkno wn History atorvastatin 10 mg tablet 10 mg PO DAILY 05/14/25 Unkn own History cholecalciferol (vitamin D3) 50 50 mcg PO DAILY Unknown History mcg (2,000 unit) capsule oxycodone-acetaminophen 5 mg-325 1 tab PO Q6H PRN PRN pain 05/14/25 Unknown History mg tablet psyllium husk 0.4 gram capsule 0.8 g PO DAILY 05/14/25 Unknown History (Daily Fiber) Allergy/AdvReac Type Severity Reaction Status Date / Time No Known Allergies Allergy Verified 05/16/25 13:49 Surgical History (Updated 05/14/25 @ 12:14 by Louann Ryan) Hx of removal of cyst Hx of section Hx of hernia repair Social History Smoking Status: Never smoker Review of Systems (Anesthesia) ROS Narrative System reviewed and no additional complaints, except as documented. 05/16/25 1441 D> Date _ Mauri Barnes MD Cosigner Signature: Date CC: ~ Signed [facility]07-16-2025 Radiology Diagnostic study note [facility] Imaging Services [address] [place] [address] Abd Inc Decub and/or Erect MR#: [id number] Acct: [id number] Name: GOPAL LAMA LG Rep #: [id number] : 1975 F 49 From: Nivia Ashford MD PCP: Dr. Huy Donald, DO [place] [facility] [place]:Abd Inc Decub and/or Erect Date of Exam : 05/16/25 Exam# [id number] Ordering Dr: Juan R Smith MD EXAM: XR Abdomen, 1 View CLINICAL INDICATION: PRE-OP TECHNIQUE: Frontal supine view of the abdomen/pelvis. COMPARISON: No relevant prior studies available. FINDINGS: GASTROINTESTINAL TRACT: Unremarkable. No dilation. ORGANS: 5 mm calculus over the right renal region. 6 mm calculus of the left renal region. BONES/JOINTS: Unremarkable. No acute fracture. RAD/Abd Inc Decub and/or Erect IMPRESSION: Probable bilateral nephrolithiasis. [facility] CC: Dr. Neeraj Smith MD; Dr. Huy Donald DO ~ Piecer: Signed [facility]07-08-2025 Hospital Discharge instructions Patient Education 05/08/2025 00:01:38 Kidney Stone w/ Colic Kidney Stone with Pain The sharp cramping pain on either side of your lower back and nausea/vomiting that you have are because of a small stone that has formed in the kidney. It is now passing down a narrow tube (ureter) on its way to your bladder. Once the stone reaches your bladder, the pain will often stop. But it maycome back as the stone continues to pass out of the bladder and through the urethra. The stone may pass in your urine stream in one piece. The size may be 1/16 inch to 1/4 inch (1 mm to 6 mm). Or, the stone may break up into milad fragments that you may not even notice. Once you have had a kidney stone, you are at risk of getting another one in the future. There are 4types of kidney stones. Eighty percent are calcium stones mostly calcium oxalate but also some withcalcium phosphate. The other 3 types include uric acid stones, struvite stones (from a preceding infection), and rarely, cystine stones. Most stones will pass on their own, but may take from a few hours to a few days. Sometimes the stone is too large to pass by itself. In that case, the healthcare provider will need to use other ways to remove the stone. These techniques include: Lithotripsy. This uses ultrasound waves to break up the stone. Ureteroscopy. This pushes a basket-like instrument through the urethra and bladder and into the ureter to pull out the stone. Various types of direct surgery through the skin Home care The following are general care guidelines: Drink plenty of fluids. This means at least 12, 8-ounce glasses of fluid mostly water a day. Each time you urinate, do so in a jar. Pour the urine from the jar through the strainer and into the toilet. Continue doing this until 24 hours after your pain stops. By then, if there was a kidney stone, it should pass from your bladder. Some stones dissolve into sand-like particles and pass rightthrough the strainer. In that case, you won t ever see a stone. Save any stone that you find in the strainer and bring it to your healthcare provider to look at. It may be possible to stop certain types of stones from forming. For this reason, it is important to know what kind of stone you have. Try to stay as active as possible. This will help the stone pass. Don't stay in bed unless your pain keeps you from getting up. You may notice a red, pink, or brown color to your urine. This is normal while passing a kidney stone. If you develop pain, you may take ibuprofen or naproxen for pain, unless another medicine was prescribed. If you have chronic liver or kidney disease, talk with your healthcare provider before takingthese medicines. Also talk with your provider if you've had a stomach ulcer or GI bleeding. Preventing stones Each year for the next 5 to 7 years, you are at risk that a new stone will form. Your risk is a 50%chance over this time period. The risk is higher if you have a family history of kidney stones or have certain chronic illnesses like hypertension, obesity, or diabetes. But you can make changes to your lifestyle and diet that can lower your risk for another stone. Most kidney stones are made of calcium. The following is advice for preventing another calcium stone. If you don t know the type of stone you have, follow this advice until the cause of your stone isfound. Things that help: The most important thing you can do is to drink plenty of fluids each day. See home care above. Eat foods that contain phytates. These include wheat, rice, rye, barley, and beans. Phytates are substances that may lower your risk for any type of stone to form. Eat more fruits and vegetables. Choose those that are high in potassium. Eat foods high in natural citrate like fruit and low-sugar fruit juices. Having too little calcium in your diet can put you at risk for calcium kidney stones. Eat a normal amount of calcium in your diet and talk with your healthcare provider if you are taking calcium supplements. Cutting back on your calcium intake may raise your risk. New research shows that eating calcium-rich and oxalate-rich foods together lowers your risk for stones by binding the minerals in thestomach and intestines before they can reach the kidneys. Limit salt intake to 2 grams (1 teaspoon) per day. Use limited amounts when cooking, and don t add salt at the table. Processed and canned foods are usually high in salt. Spinach, rhubarb, peanuts, cashews, almonds, grapefruit, and grapefruit juice are all high oxalate foods. You should limit how much of these you eat. Or eat them with calcium-rich foods. These include dairy products, dark leafy greens, soy products, and calcium-enriched foods. Reducing the amount of animal meat and high protein foods in your diet may lower your risk for uricacid stones. Avoid excess sugar (sucrose) and fructose (sweetener in many soft drinks) in your diet. If you take vitamin C as a supplement, don't take more than 1,000 mg a day. A dietitian or your healthcare provider can give you information about changes in your diet that will help prevent more kidney stones from forming. Follow-up care Follow up with your healthcare provider, or as advised, if the pain lasts more than 48 hours. Talk with your provider about urine and blood tests to find out the cause of your stone. If you had an X-ray, CT scan, or other diagnostic test, you will be told of any new findings that may affect your care. Call 911 Call 911 if you have any of these: Weakness, dizziness, or fainting When to seek medical advice Call your healthcare provider right away if any of these occur: Pain that is not controlled by the medicine given Repeated vomiting or unable to keep down fluids Fever of 100.4 F (38 C) or higher, or as directed by your healthcare provider Passage of solid red or brown urine (can't see through it) or urine with lots of blood clots Foul-smelling or cloudy urine Unable to pass urine for 8 hours and increasing bladder pressure [id number] The [employer]. [address] [place] [address], [place] [address]. All rights reserved. This information is not intended as a substitute for professional medical care. Always follow yourhealthcare professional's instructions. Follow Up Care 05/07/2025 22:12:18 With:NEERAJ SMITH MD, Urology Service Address: [address] [place] [address] [place] [address]- [phone] When:2-4 days [facility] 07-08-2025 Note Discharge Instructions Thank you for allowing [facility] to assist you with your healthcare needs. The following is importantdischarge information regarding your hospital visit. Diagnosis from Today's Visit Right ureteral stone What to Do Next Instructions from Your Care Team No qualifying data available. Post Acute Orders No qualifying data available. You Need to Schedule the Following Appointments Follow Up with NEERAJ SMITH MD, Urology Service When:Within 2-4 days Where:[address] [place] [address] [place] [address]- [phone] Allergies No Known Medication Allergies Medications Please ask your primary doctor or pharmacist before taking any other medication not listed, including over the counter drugs, herbal medications, vitamins and or supplements as they may interact withyour home medications. What How Much When Why Instructions Last Dose New acetaminophen-oxyCODONE (Percocet 5 mg-325 mg oral tablet) 1 tab(s) by mouth Every 6 hours as needed for for pain Right ureteral stone Duration: 3 Days Pickup at [facility]/pharmacy #[id number] New ondansetron (Zofran 4 mg oral tablet) 1 tab(s) by mouth Every 8 hours as needed for Nausea/Vomiting Duration: 5 Days Pickup at [facility]/pharmacy #[id number] Pharmacy Information [facility]/pharmacy #[id number]: [address], [place] [id number] [phone] Please take this list to your next doctor s visit. Bring all medications you take, including over the counter medications, herbals and other supplements with you to your doctor s visit. Patients and families are reminded to discard old lists and to update any records with all medication providers or retail pharmacies. Education Materials Kidney Stone with Pain The sharp cramping pain on either side of your lower back and nausea/vomiting that you have are because of a small stone that has formed in the kidney. It is now passing down a narrow tube (ureter) on its way to your bladder. Once the stone reaches your bladder, the pain will often stop. But it maycome back as the stone continues to pass out of the bladder and through the urethra. The stone may pass in your urine stream in one piece. The size may be 1/16 inch to 1/4 inch (1 mm to 6 mm). Or, the stone may break up into milad fragments that you may not even notice. Once you have had a kidney stone, you are at risk of getting another one in the future. There are 4types of kidney stones. Eighty percent are calcium stones mostly calcium oxalate but also some withcalcium phosphate. The other 3 types include uric acid stones, struvite stones (from a preceding infection), and rarely, cystine stones. Most stones will pass on their own, but may take from a few hours to a few days. Sometimes the stone is too large to pass by itself. In that case, the healthcare provider will need to use other ways to remove the stone. These techniques include: Lithotripsy. This uses ultrasound waves to break up the stone. Ureteroscopy. This pushes a basket-like instrument through the urethra and bladder and into the ureter to pull out the stone. Various types of direct surgery through the skin Home care The following are general care guidelines: Drink plenty of fluids. This means at least 12, 8-ounce glasses of fluid mostly water a day. Each time you urinate, do so in a jar. Pour the urine from the jar through the strainer and into the toilet. Continue doing this until 24 hours after your pain stops. By then, if there was a kidney stone, it should pass from your bladder. Some stones dissolve into sand-like particles and pass rightthrough the strainer. In that case, you won t ever see a stone. Save any stone that you find in the strainer and bring it to your healthcare provider to look at. It may be possible to stop certain types of stones from forming. For this reason, it is important to know what kind of stone you have. Try to stay as active as possible. This will help the stone pass. Don't stay in bed unless your pain keeps you from getting up. You may notice a red, pink, or brown color to your urine. This is normal while passing a kidney stone. If you develop pain, you may take ibuprofen or naproxen for pain, unless another medicine was prescribed. If you have chronic liver or kidney disease, talk with your healthcare provider before takingthese medicines. Also talk with your provider if you've had a stomach ulcer or GI bleeding. Preventing stones Each year for the next 5 to 7 years, you are at risk that a new stone will form. Your risk is a 50%chance over this time period. The risk is higher if you have a family history of kidney stones or have certain chronic illnesses like hypertension, obesity, or diabetes. But you can make changes to your lifestyle and diet that can lower your risk for another stone. Most kidney stones are made of calcium. The following is advice for preventing another calcium stone. If you don t know the type of stone you have, follow this advice until the cause of your stone isfound. Things that help: The most important thing you can do is to drink plenty of fluids each day. See home care above. Eat foods that contain phytates. These include wheat, rice, rye, barley, and beans. Phytates are substances that may lower your risk for any type of stone to form. Eat more fruits and vegetables. Choose those that are high in potassium. Eat foods high in natural citrate like fruit and low-sugar fruit juices. Having too little calcium in your diet can put you at risk for calcium kidney stones. Eat a normal amount of calcium in your diet and talk with your healthcare provider if you are taking calcium supplements. Cutting back on your calcium intake may raise your risk. New research shows that eating calcium-rich and oxalate-rich foods together lowers your risk for stones by binding the minerals in thestomach and intestines before they can reach the kidneys. Limit salt intake to 2 grams (1 teaspoon) per day. Use limited amounts when cooking, and don t add salt at the table. Processed and canned foods are usually high in salt. Spinach, rhubarb, peanuts, cashews, almonds, grapefruit, and grapefruit juice are all high oxalate foods. You should limit how much of these you eat. Or eat them with calcium-rich foods. These include dairy products, dark leafy greens, soy products, and calcium-enriched foods. Reducing the amount of animal meat and high protein foods in your diet may lower your risk for uricacid stones. Avoid excess sugar (sucrose) and fructose (sweetener in many soft drinks) in your diet. If you take vitamin C as a supplement, don't take more than 1,000 mg a day. A dietitian or your healthcare provider can give you information about changes in your diet that will help prevent more kidney stones from forming. Follow-up care Follow up with your healthcare provider, or as advised, if the pain lasts more than 48 hours. Talk with your provider about urine and blood tests to find out the cause of your stone. If you had an X-ray, CT scan, or other diagnostic test, you will be told of any new findings that may affect your care. Call 911 Call 911 if you have any of these: Weakness, dizziness, or fainting When to seek medical advice Call your healthcare provider right away if any of these occur: Pain that is not controlled by the medicine given Repeated vomiting or unable to keep down fluids Fever of 100.4 F (38 C) or higher, or as directed by your healthcare provider Passage of solid red or brown urine (can't see through it) or urine with lots of blood clots Foul-smelling or cloudy urine Unable to pass urine for 8 hours and increasing bladder pressure [id number] The [employer]. [address] [place] [address]. All rights reserved. This information is not intended as a substitute for professional medical care. Always follow yourhealthcare professional's instructions. Additional Information VACCINATE! IT SAVES LIVES! Members of the community who have not yet received the COVID-19 vaccine and would like to receive it can visit one of [facility] vaccine clinics. There are many vaccine clinic locations within the [facility]. For locations and available times, please visit www.gettheshot.coronavirus.[place].gov/. It is important to note that some COVID mobile vaccine clinics are held outdoors and may be canceled in rainy or stormy conditions. To learn more about pediatric vaccinations (ages 5-11), we invite you to visit the [facility] webpage. https://www.[facility].org/pages/1797-Dgrde-Fqkqybpfwvg-Plmblickga-Lianm-Ntr stions.htmlTo learn more about the COVID-19 vaccine, we invite you to visit the CDC website for a list of frequently asked questions. https://www.cdc.gov/coronavirus/2019-ncov/vaccines/faq.html [facility] Patient Portal Access Instructions: Stay connected with your healthcare team and access your personal medical information anytime with the [facility] Patient Portal. If you would like a full copy of your medical records please contact the [facility] Medical Records Department Wednesday through Wednesday between 8a.m. and 4:30p.m. Please follow the directions below to access the portal: 1.Access the email account you provided upon registration to the [facility].2.Look for an invitation email from [facility].3.Open the email and access the invitation link: Accept Invitation to [facility]4.Fill in the required thacker to create your account. Sign into www.[email or web address] with your username and password that you created in the above steps to stay up to date. You can then view a summary of results, a summary of your visits, and the ability to download your summaries to your computer or send the information securely to a physician. Remember that your healthcare information is confidential, so carefully consider who you will allow to register on the [facility] Patient Portal for access to your information. You can also access the [facility] Patient Portal on the efw-suhl telma. Simply click on Health Records under [employer] and then click on the [employer] logo. HOW TO SAFELY DISPOSE OF PRESCRIPTION MEDICATIONS Please use one of the following methods to safely dispose of your unused medications. 1.Use a drug disposal kit: the drug disposal pouch allows you to safely discard your old and unuseddrugs. Ask your nurse to give you one when you are discharged.2.Visit a local take-back location: Many local pharmacies and police departments have programs that collect old and unwanted prescriptiondrugs. Call your local pharmacy or go to http://bit.ly/7P1Uu4l to find one close to you.3.Make use of household items: Use cat litter or old coffee grounds to dispose medications if other options arenot available. Mix your drugs with these household products, seal them in an airtight container andthrow it into the garbage. Call [facility]: [phone] to be sure your drugs can be disposed of in this way. Some medicines may require a different approach.4.Never flush your medications down the toilet. IF YOU HAVE BEEN PRESCRIBED AN OPIOIDS FOR PAIN If you have been prescribed an opioid (such as hydrocodone, oxycodone or morphine), it is critical to understand the possible side effects and risks of opioid pain medications. Even when taken as directed, opioids can have several side effects including: Tolerance, meaning you might need to take more of a medication for the same pain relief. Nausea, vomiting and/or constipation. Sleepiness, dizziness, dry mouth, confusion, depression or itching. Physical dependence, meaning you have withdrawal symptoms when a medication is stopped ? this can develop within a few days. KNOW YOUR RESPONSIBILITIES It is important to know exactly how much and how often to take the opioid pain medications you are prescribed. Never take opioids in higher amounts or more often than prescribed. Do not combine opioids with alcohol or other drugs that cause drowsiness, such as benzodiazepines, also known as benzos,including diazepam and alprazolam, muscle relaxants or sleep aids. Never sell or share prescriptionopioids. This is illegal. Store opioids in a secure place and out of reach of others (including children, family, friends and visitors). The last page(s) of this document has been signed and retained as a CHART COPY Signatures Patient Education Materials Kidney Stone w/ Colic Medication Leaflets My discharge plan and instructions have been reviewed and explained to me and I,GOPAL BANUELOS understand my current condition and have read and understand these discharge instructions. I have received a written copy of the plan/instructions. If I have questions, I am aware that I should contact my d octor. 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 Multiplanar reformatted images are provided for review. Automated exposure control, iterative reconstruction, and/or weight based adjustment of the mA/kV was utilized to reduce the radiation dose to as low as reasonably achievable. COMPARISON: None HISTORY: ORDERING SYSTEM PROVIDED HISTORY: Reason for Exam: r flank pain, vomiting, h/o kidney stone FINDINGS: The included lung bases are clear. Diffuse hepatic steatosis. The spleen, adrenal glands, and pancreas are within normal limits. Gallbladder is unremarkable. 0.6 cm calculus in right ureteropelvic junction/proximal ureter with moderate hydronephrosis. Nonobstructing 0.5 cm left renal calculus. Left ureter is not dilated.. Urinary bladder is underdistended limiting evaluation. The large and small bowel demonstrate no obstruction. The appendix is normal. No free intraperitoneal fluid or gas is identified. The aorta is normal in caliber. There is no lymphadenopathy. The pelvic structures are grossly unremarkable. The abdominal wall is unremarkable. There is no acute fracture or aggressive osseous lesion. IMPRESSION: 0.6 cm obstructing calculus in right ureteropelvic junction/proximal ureter with moderate hydronephrosis. Nonobstructing left renal nephrolithiasis. There is diffuse hypoattenuation of the liver compatible with steatosis. Correlation with clinical findings may be useful. Preliminary Report was Dictated by a Resident I have personally reviewed the images of this examination and agree with the resident's findings and interpretation. Nolan Oh M.D. Interpreted by: Nolan Oh Preliminary Report By: Hardeep Harrell Electronically signed By Nolan Oh Dictated Date: 05/07/2025 11:36:51 PM Prelim Date: 05/07/2025 11:41:24 PM Sign Date: 05/08/2025 12:23:21 AM Ordering Provider: JIE FERNANDEZ Interpreted by: Nolan Oh Preliminary Report By: Hardeep Harrell Electronically signed By Nolan Oh Dictated Date: 05/07/2025 11:36:51 PM Prelim Date: 05/07/2025 11:41:24 PM Sign Date: 05/08/2025 12:23:21 AM Ordering Provider: JIE FERNANDEZ [facility]02-17-2025 Consult note Author Mauri Barnes [facility] Note Date/Time May 16, 2025 4:58 pm [facility] Medical Records Department [address] [place] [address] Anesthesia Postop Eval II 05/16/25 1631 MR#: [id number] Acct: [id number] Name: GOPAL LAMA Rep #:[id number] : 1975 49 From: Mauri Barnes MD PCP: Dr. 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 HARDWARE DESIGNER.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 Anesthesia Postop Eval I: Fluid Summary Crystalloid volume administer 900 05/16/25 16:02 COMPUTER HARDWARE DESIGNER.ABAR (ml) Colloids volume administered ( ml) Blood Product volume administered (ml) Total IV fluid infused 900 05/16/25 16:02 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 HARDWARE DESIGNER.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 Anesthesia Postop Eval I: Summary Notes Anesthesia Complication No 05/16/25 16:02 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 HARDWARE DESIGNER.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 Anesthesia Complication Comment: Post-operative progress note Anesthesia: Postop Eval II Evaluation Mental status: Awake and Calm Pain Level: 2 nausea: No Vomiting: No Complications Anesthesia Complication: No 05/16/25 1631 <Electronically signed by Mauri De Leon D> Date _ Mauri Barnes MD Cosigner Signature: Date CC: ~ Signed [facility] Work Phone: [phone] [phone] Hospital Discharge instructions Patient Education 07/13/2024 13:30:19 Nausea and Vomiting, Adult, Sbke-gb-Ujdf Nausea and Vomiting, Adult Nausea is feeling sick to your stomach or feeling that you are about to throw up (vomit). Vomiting is when food in your stomach is thrown up and out of the mouth. Throwing up can make you feel weak. It can also make you lose too much water in your body (get dehydrated). If you lose too much water in your body, you may: Feel tired. Feel thirsty. Have a dry mouth. Have cracked lips. Go pee (urinate) less often. Older adults and people with other diseases or a weak body defense system (immune system) are at higher risk for losing too much water in the body. If you feel sick to your stomach and you throw up, it is important to follow instructions from your doctor about how to take care of yourself. Follow these instructions at home: Watch your symptoms for any changes. Tell your doctor about them. Follow these instructions to carefor yourself at home. Eating and drinking Take an ORS (oral rehydration solution). This is a drink that is sold at pharmacies and stores. Drink clear fluids in small amounts as you are able, such as: ?Water. ?Ice chips. ?Fruit juice that has water added (diluted fruit juice). ?Low-calorie sports drinks. Eat bland, tenx-ux-rpovjy foods in small amounts as you are able, such as: ?Bananas. ?Applesauce. ?Rice. ?Low-fat (lean) meats. ?[place]. ?Crackers. Avoid drinking fluids that have a lot of sugar or caffeine in them. This includes energy drinks, sports drinks, and soda. Avoid alcohol. Avoid spicy or fatty foods. General instructions Take xfym-nun-fpgjhdn and prescription medicines only as told by your doctor. Drink enough fluid to keep your pee (urine) pale yellow. Wash your hands often with soap and water. If you cannot use soap and water, use hand crude tester. Make sure that all people in your home wash their hands well and often. Rest at home while you get better. Watch your condition for any changes. Take slow and deep breaths when you feel sick to your stomach. Keep all follow-up visits as told by your doctor. This is important. Contact a doctor if: Your symptoms get worse. You have new symptoms. You have a fever. You cannot drink fluids without throwing up. You feel sick to your stomach for more than 2 days. You feel light-headed or dizzy. You have a headache. You have muscle cramps. You have a rash. You have pain while peeing. Get help right away if: You have pain in your chest, neck, arm, or jaw. You feel very weak or you pass out (faint). You throw up again and again. You have throw up that is bright red or looks like black coffee grounds. You have bloody or black poop (stools) or poop that looks like tar. You have a very bad headache, a stiff neck, or both. You have very bad pain, cramping, or bloating in your belly (abdomen). You have trouble breathing. You are breathing very quickly. Your heart is beating very quickly. Your skin feels cold and clammy. You feel confused. You have signs of losing too much water in your body, such as: ?Dark pee, very little pee, or no pee. ?Cracked lips. ?Dry mouth. ?Sunken eyes. ?Sleepiness. ?Weakness. These symptoms may be an emergency. Do not wait to see if the symptoms will go away. Get medical help right away. Call your local emergency services (911 in the [place] Do not drive yourself to the hospital. Summary Nausea is feeling sick to your stomach or feeling that you are about to throw up (vomit). Vomiting is when food in your stomach is thrown up and out of the mouth. Follow instructions from your doctor about eating and drinking to keep from losing too much water in your body. Take cavx-nyd-prmrnvm and prescription medicines only as told by your doctor. Contact your doctor if your symptoms get worse or you have new symptoms. Keep all follow-up visits as told by your doctor. This is important. This information is not intended to replace advice given to you by your health care provider. Make sure you discuss any questions you have with your health care provider. Document Released: 04/05/2009 Document Revised: 02/09/2020 Document Reviewed: 03/28/2019 [email or web address] Patient Education 2020 [employer]. 07/13/2024 13:29:59 General Anesthesia, Adult, Care After General Anesthesia, Adult, Care After This sheet gives you information about how to care for yourself after your procedure. Your health care provider may also give you more specific instructions. If you have problems or questions, contact your health care provider. What can I expect after the procedure? After the procedure, the following side effects are common: Pain or discomfort at the IV site. Nausea. Vomiting. Sore throat. Trouble concentrating. Feeling cold or chills. Weak or tired. Sleepiness and fatigue. Soreness and body aches. These side effects can affect parts of the body that were not involved in surgery. Follow these instructions at home: For at least 24 hours after the procedure: Have a responsible adult stay with you. It is important to have someone help care for you until youare awake and alert. Rest as needed. Do not: ?Participate in activities in which you could fall or become injured. ?Drive. ?Use heavy machinery. ?Drink alcohol. ?Take sleeping pills or medicines that cause drowsiness. ?Make important decisions or sign legal documents. ?Take care of children on your own. Eating and drinking Follow any instructions from your health care provider about eating or drinking restrictions. When you feel hungry, start by eating small amounts of foods that are soft and easy to digest (bland), such as toast. Gradually return to your regular diet. Drink enough fluid to keep your urine pale yellow. If you vomit, rehydrate by drinking water, juice, or clear broth. General instructions If you have sleep apnea, surgery and certain medicines can increase your risk for breathing problems. Follow instructions from your health care provider about wearing your sleep device: ?Anytime you are sleeping, including during daytime naps. ?While taking prescription pain medicines, sleeping medicines, or medicines that make you drowsy. Return to your normal activities as told by your health care provider. Ask your health care provider what activities are safe for you. Take bojw-bla-mvcpbxu and prescription medicines only as told by your health care provider. If you smoke, do not smoke without supervision. Keep all follow-up visits as told by your health care provider. This is important. Contact a health care provider if: You have nausea or vomiting that does not get better with medicine. You cannot eat or drink without vomiting. You have pain that does not get better with medicine. You are unable to pass urine. You develop a skin rash. You have a fever. You have redness around your IV site that gets worse. Get help right away if: You have difficulty breathing. You have chest pain. You have blood in your urine or stool, or you vomit blood. Summary After the procedure, it is common to have a sore throat or nausea. It is also common to feel tired. Have a responsible adult stay with you for the first 24 hours after general anesthesia. It is important to have someone help care for you until you are awake and alert. When you feel hungry, start by eating small amounts of foods that are soft and easy to digest (bland), such as toast. Gradually return to your regular diet. Drink enough fluid to keep your urine pale yellow. Return to your normal activities as told by your health care provider. Ask your health care provider what activities are safe for you. This information is not intended to replace advice given to you by your health care provider. Make sure you discuss any questions you have with your health care provider. Document Released: 01/24/2002 Document Revised: 10/21/2018 Document Reviewed: 06/03/2018 [email or web address] Patient Education 2020 [employer]. 07/13/2024 13:29:52 Open Hernia Repair, Adult, Care After, Zljq-rl-Hyzc Open Hernia Repair, Adult, Care After These instructions give you information about caring for yourself after your procedure. Your doctormay also give you more specific instructions. If you have problems or questions, contact your doctor. Follow these instructions at home: Surgical cut (incision) care Follow instructions from your doctor about how to take care of your surgical cut area. Make sure you: ?Wash your hands with soap and water before you change your bandage (dressing). If you cannot use soap and water, use hand crude tester. ?Change your bandage as told by your doctor. ?Leave stitches (sutures), skin glue, or skin tape (adhesive) strips in place. They may need to stay in place for 2 weeks or longer. If tape strips get loose and curl up, you may trim the loose edges. Do not remove tape strips completely unless your doctor says it is okay. Check your surgical cut every day for signs of infection. Check for: ?More redness, swelling, or pain. ?More fluid or blood. ?Warmth. ?Pus or a bad smell. Activity Do not drive or use heavy machinery while taking prescription pain medicine. Do not drive until your doctor says it is okay. Until your doctor says it is okay: ?Do not lift anything that is heavier than 10 lb (4.5 kg). ?Do not play contact sports. Return to your normal activities as told by your doctor. Ask your doctor what activities are safe. General instructions To prevent or treat having a hard time pooping (constipation) while you are taking prescription pain medicine, your doctor may recommend that you: ?Drink enough fluid to keep your pee (urine) clear or pale yellow. ?Take pjhs-ayi-leogajp or prescription medicines. ?Eat foods that are high in fiber, such as fresh fruits and vegetables, whole grains, and beans. ?Limit foods that are high in fat and processed sugars, such as fried and sweet foods. Take zkyu-mai-gsujgff and prescription medicines only as told by your doctor. Do not take baths, swim, or use a hot tub until your doctor says it is okay. Keep all follow-up visits as told by your doctor. This is important. Contact a doctor if: You develop a rash. You have more redness, swelling, or pain around your surgical cut. You have more fluid or blood coming from your surgical cut. Your surgical cut feels warm to the touch. You have pus or a bad smell coming from your surgical cut. You have a fever or chills. You have blood in your poop (stool). You have not pooped in 2 3 days. Medicine does not help your pain. Get help right away if: You have chest pain or you are short of breath. You feel light-headed. You feel weak and dizzy (feel faint). You have very bad pain. You throw up (vomit) and your pain is worse. This information is not intended to replace advice given to you by your health care provider. Make sure you discuss any questions you have with your health care provider. Document Released: 11/08/2015 Document Revised: 02/09/2020 Document Reviewed: 03/31/2017 [email or web address] Patient Education 2019 [place] [facility] 09-12-2024 Note Discharge Instructions Thank you for allowing [facility] to assist you with your healthcare needs. The following is importantdischarge information regarding your hospital visit. Your Care Team HUY DONALD DO DR. MARCUS Your Diagnosis Acute post-operative pain What to do next Scheduled Follow-Up Appointments Appointment Type When With Where Contact Information StatusGS OV Post Op 07/20/2024 01:30 PM EDT SOFIA MARCUS MD [facility] General Surgery [place] Confirmed PC OV 12/25/2024 09:00 AM EST HUY DONALD DO [address] [id number] Confirmed The Following Activity and Diet Have Been Ordered for You Discharge Activity - Ordered -- Sexual [place] Restricted No bending, twisting, crawling or squatt, No shower or tub bath for 2 days; no driving for 5 days, no lifting >15 lbs, 07/13/24 13:04:00 EDT Discharge Diet - Ordered -- Follow the post-operative/post-procedure diet instructions provided by your physician's office.,07/13/24 13:04:00 EDT The Following Equipment Has Been Ordered for You Discharge Home Equipment Discharge Wound Care - Ordered -- Dressing Type: Dry sterile drsg, Remove dressing in two (2) days. Leave steristrips on until they fall off, 07/13/24 13:04:00 EDT Allergies NKA Medications Please ask your primary doctor or pharmacist before taking any other medication not listed, including over the counter drugs, herbal medications, vitamins and or supplements as they may interact withyour home medications. What How Much When Why Instructions Last Dose New acetaminophen-hydrocodone ([place] 325- 5 mg oral tablet) 1 tab(s) by mouth Every 4 hours as needed for Pain, scale 1-6 Acute post-operative pain Duration: 5 Days Pickup at [facility]/pharmacy #[id number] Unchanged amLODIPine (amLODIPine 5 mg oral tablet) 1 tab(s) by mouth Once a day HTN (hypertension) Unchanged ascorbic acid (Vitamin C 250 mg oral tablet) 1 tab(s) by mouth Once a day Unchanged atorvastatin (atorvastatin 10 mg oral tablet) 1 tab(s) by mouth Once a day Pure hypercholesterolemia Heterozygous familial hypercholesterolemia Unchanged cholecalciferol (Vitamin D3 50 mcg (2000 intl units) oral capsule) 1 cap by mouth Every day Weight loss counseling, encounter for Heterozygous familial hypercholesterolemia Unchanged psyllium (Metamucil) 5g by mouth Once a day Pharmacy Information [facility]/pharmacy #[id number]: [address], [place] [id number] [phone] Please take this list to your next doctor s visit. Bring all medications you take, including over the counter medications, herbals and other supplements with you to your doctor s visit. Patients and families are reminded to discard old lists and to update any records with all medication providers or retail pharmacies. Medication Leaflets bupivacaine liposome (bue PIV a cabrera ROSA ISELA kayla some) Exparel What is the most important information I should know about bupivacaine liposome? You may still feel numb or be unable to move the numbed area for up to 5 days after you are treatedwith bupivacaine liposome. What is bupivacaine liposome? Bupivacaine is an anesthetic (numbing medicine) that blocks nerve impulses in your body. Bupivacaine liposome is used as a local (in only one area) anesthetic to numb an area of your body for a minor surgery such as bunion removal or hemorrhoid surgery. Bupivacine liposome is also used as a nerve block after surgery on your shoulder or upper arm, to provide pain relief to the area. Bupivacaine may also be used for purposes not listed in this medication guide. What should I discuss with my healthcare provider before receiving bupivacaine liposome? You should not be treated with bupivacaine if you are allergic to it. Tell your doctor if you have ever had: an allergic reaction to any type of numbing medicine; liver disease; kidney disease; heart disease; a heart rhythm disorder; or seizures. It is not known whether this medicine will harm an unborn baby. Tell your doctor if you are . It may not be safe to breast-feed a baby while you are using this medicine. Ask your doctor about any risks. How is bupivacaine liposome given? Bupivacaine is given as an injection placed into an area near your surgical incision. You will receive this injection in a hospital or surgical setting. Bupivacaine liposome can have long-lasting or delayed effects. For at least 4 days (96 hours) afteryour surgery, tell any doctor or dentist who treats you that you recently received a bupivacaine liposome injection. Call your doctor if you have joint pain or stiffness, or weakness in any part of your body that occurs after your surgery, even months later. What happens if I miss a dose? Since bupivacaine liposome is used as a single dose, it does not have a daily dosing schedule. What happens if I overdose? Since this medication is given by a healthcare professional in a medical setting, an overdose is unlikely to occur. What should I avoid after receiving bupivacaine liposome? For at least 4 days (96 hours) after surgery, avoid using any pain or numbing medicines that contain lidocaine. This includes skin patches, sprays, creams, ointments, or gels applied to the skin. Follow your doctor's instructions. What are the possible side effects of bupivacaine liposome? Get emergency medical help if you have signs of an allergic reaction: hives, red rash, itching; sneezing, difficulty breathing; severe dizziness, vomiting; swelling of your face, lips, tongue, or throat. You will be watched closely after receiving bupivacaine liposome, to make sure you do not have a reaction to the medicine. Tell your caregivers at once if you have any of these signs of a serious side effect: ringing in your ears; drowsiness, feeling restless or anxious; feeling like you might pass out; speech or vision problems, a metallic taste in your mouth; numbness or tingling around your mouth; fast or slow heart rate, feeling short of breath, feeling unusually hot or cold; tremors, twitching, mood changes; ongoing numbness, weakness, or loss of movement where the medicine was injected; or joint pain or stiffness, or weakness in any part of your body for months after your surgery. You may still feel numb or be unable to move the numbed area for up to 5 days after you are treatedwith bupivacaine liposome. Common side effects include: nausea, vomiting; constipation; or fever. This is not a complete list of side effects and others may occur. Call your doctor for medical advice about side effects. You may report side effects to FDA at 4-482-GTA-0767. What other drugs will affect bupivacaine liposome? Other drugs may affect bupivacaine liposome, including prescription and ymus-cju-mxuuyhw medicines,vitamins, and herbal products. Tell your doctor about all your current medicines and any medicine you start or stop using. Where can I get more information? Your doctor or pharmacist can provide more information about bupivacaine liposome. Remember, keep this and all other medicines out of the reach of children, never share your medicines with others, and use this medication only for the indication prescribed. Every effort has been made to ensure that the information provided by [employer] is accurate, up-to-date, and complete, but no guarantee is made to that effect. Drug information contained herein may be time sensitive. [facility] information has been compiled for use by healthcare practitioners and consumers in the [place] and therefore [facility] does not warrant that uses outside of the [place] are appropriate, unless specifically indicated otherwise. [employer] drug information does not endorse drugs, diagnose patients or recommend therapy. [employer] drug information isan informational resource designed to assist licensed healthcare practitioners in caring for their p atients and/or to serve consumers viewing this service as a supplement to, and not a substitute for, the expertise, skill, knowledge and judgment of healthcare practitioners. The absence of a warningfor a given drug or drug combination in no way should be construed to indicate that the drug or drug combination is safe, effective or appropriate for any given patient. [facility] does not assume any responsibility for any aspect of healthcare administered with the aid of information [facility] provides. The information contained herein is not intended to cover all possible uses, directions, precautions, warnings, drug interactions, allergic reactions, or adverse effects. If you have questions about the drugs you are taking, check with your doctor, nurse or pharmacist. Copyright 1685-6247 [employer]. Version: 4.01. Revision Date: 02/21/2018. acetaminophen and hydrocodone (a SEET a MIN oh fen and shaina droe KOE done) Verdrocet What is the most important information I should know about acetaminophen and hydrocodone? MISUSE OF OPIOID MEDICINE CAN CAUSE ADDICTION, OVERDOSE, OR . Keep the medication in a place where others cannot get to it. Taking opioid medicine during may cause life-threatening withdrawal symptoms in the . Fatal side effects can occur if you use opioid medicine with alcohol, or with other drugs that cause drowsiness or slow your breathing. Stop taking this medicine and call your doctor right away if you have skin redness or a rash that spreads and causes blistering and peeling. What is acetaminophen and hydrocodone? Acetaminophen and hydrocodone is a combination medicine used to relieve moderate to severe pain. Acetaminophen and hydrocodone contains an opioid medicine, and may be habit-forming. Acetaminophen and hydrocodone may also be used for purposes not listed in this medication guide. What should I discuss with my healthcare provider before taking acetaminophen and hydrocodone? You should not use this medicine if you are allergic to acetaminophen or hydrocodone, or if you have: severe asthma or breathing problems; or a blockage in your stomach or intestines. Tell your doctor if you have ever had: breathing problems, sleep apnea (breathing stops during sleep); liver disease; a drug or alcohol addiction; kidney disease; a head injury or seizures; urination problems; or problems with your thyroid, pancreas, or gallbladder. If you use opioid medicine while you are , your baby could become dependent on the drug. This can cause life-threatening withdrawal symptoms in the baby after it is born. Babies born dependent on opioids may need medical treatment for several weeks. Ask a doctor before using opioid medicine if you are . Tell your doctor if you notice severe drowsiness or slow breathing in the nursing baby. How should I take acetaminophen and hydrocodone? Follow all directions on your prescription label. Never take this medicine in larger amounts, or for longer than prescribed. An overdose can damage your liver or cause . Tell your doctor if you feel an increased urge to use more of this medicine. Never share this medicine with another person, especially someone with a history of drug abuse or addiction. MISUSE CAN CAUSE ADDICTION, OVERDOSE, OR . Keep the medicine in a place where others cannot get to it. Selling or giving away this medicine is against the law. Measure liquid medicine carefully. Use the dosing syringe provided, or use a medicine dose-measuring device (not a kitchen spoon). If you need surgery or medical tests, tell the doctor ahead of time that you are using this medicine. You should not stop using this medicine suddenly. Follow your doctor's instructions about tapering your dose. Store at room temperature away from moisture and heat. Keep track of your medicine. You should be aware if anyone is using it improperly or without a prescription. Do not keep leftover opioid medication. Just one dose can cause in someone using this medicine accidentally or improperly. Ask your pharmacist where to locate a drug take-back disposal program.If there is no take-back program, flush the unused medicine down the toilet. What happens if I miss a dose? Since this medicine is used for pain, you are not likely to miss a dose. Skip any missed dose if itis almost time for your next dose. Do not use two doses at one time. What happens if I overdose? Seek emergency medical attention or call the Poison Help line at . An overdose of this medicine can be fatal, especially in a child or other person using the medicine without a prescription. Overdose symptoms may include nausea, vomiting, sweating, severe drowsiness, pinpoint pupils, slow breathing, or no breathing. Your doctor may recommend you get naloxone (a medicine to reverse an opioid overdose) and keep it with you at all times. A person caring for you can give the naloxone if you stop breathing or don't wake up. Your caregiver must still get emergency medical help and may need to perform CPR (cardiopulmonary resuscitation) on you while waiting for help to arrive. Anyone can buy naloxone from a pharmacy or local health department. Make sure any person caring foryou knows where you keep naloxone and how to use it. What should I avoid while taking acetaminophen and hydrocodone? Avoid driving or operating machinery until you know how this medicine will affect you. Dizziness ordrowsiness can cause falls, accidents, or severe injuries. Do not drink alcohol. Dangerous side effects or could occur. Ask a doctor or pharmacist before using any other medicine that may contain acetaminophen (sometimes abbreviated as APAP). Taking certain medications together can lead to a fatal overdose. What are the possible side effects of acetaminophen and hydrocodone? Get emergency medical help if you have signs of an allergic reaction: hives; difficulty breathing; swelling of your face, lips, tongue, or throat. Opioid medicine can slow or stop your breathing, and may occur. A person caring for you should give naloxone and/or seek emergency medical attention if you have slow breathing with long pauses,blue colored lips, or if you are hard to wake up. In rare cases, acetaminophen may cause a severe skin reaction that can be fatal. This could occur even if you have taken acetaminophen in the past and had no reaction. Stop taking this medicine and call your doctor right away if you have skin redness or a rash that spreads and causes blistering andpeeling. Call your doctor at once if you have: noisy breathing, sighing, shallow breathing, breathing that stops; a light-headed feeling, like you might pass out; liver problems--nausea, upper stomach pain, tiredness, loss of appetite, dark urine, calin-colored stools, jaundice (yellowing of the skin or eyes); low cortisol levels-- nausea, vomiting, loss of appetite, dizziness, worsening tiredness or weakness; o high levels of serotonin in the body--agitation, hallucinations, fever, sweating, shivering, fast heart rate, muscle stiffness, twitching, loss of coordination, nausea, vomiting, diarrhea. Serious breathing problems may be more likely in older adults and in those who are debilitated or have wasting syndrome or chronic breathing disorders. Common side effects include: dizziness, drowsiness, feeling tired; nausea, vomiting, stomach pain; constipation; or headache. This is not a complete list of side effects and others may occur. Call your doctor for medical advice about side effects. You may report side effects to FDA at 3-176-SXO-2228. What other drugs will affect acetaminophen and hydrocodone? You may have breathing problems or withdrawal symptoms if you start or stop taking certain other medicines. Tell your doctor if you also use an antibiotic, antifungal medication, heart or blood pressure medication, seizure medication, or medicine to treat HIV or hepatitis C. Opioid medication can interact with many other drugs and cause dangerous side effects or . Be sure your doctor knows if you also use: cold or allergy medicines, bronchodilator asthma/COPD medication, or a diuretic ('water pill'); medicines for motion sickness, irritable bowel syndrome, or overactive bladder; other opioids--opioid pain medicine or prescription cough medicine; a sedative like Valium--diazepam, alprazolam, lorazepam, Xanax, Klonopin, Versed, and others; drugs that make you sleepy or slow your breathing--a sleeping pill, muscle relaxer, medicine to treat mood disorders or mental illness; drugs that affect serotonin levels in your body--a stimulant, or medicine for depression, Parkinson's disease, migraine headaches, serious infections, or nausea and vomiting. This list is not complete. Other drugs may affect acetaminophen and hydrocodone, including prescription and mdzc-byh-cuovkqx medicines, vitamins, and herbal products. Not all possible interactions are listed here. Where can I get more information? Your doctor or pharmacist can provide more information about acetaminophen and hydrocodone. Remember, keep this and all other medicines out of the reach of children, never share your medicines with others, and use this medication only for the indication prescribed. Every effort has been made to ensure that the information provided by [employer] is accurate, up-to-date, and complete, but no guarantee is made to that effect. Drug information contained herein may be time sensitive. [facility] information has been compiled for use by healthcare practitioners and consumers in the [place] and therefore [facility] does not warrant that uses outside of the [place] are appropriate, unless specifically indicated otherwise. [employer] drug information does not endorse drugs, diagnose patients or recommend therapy. [employer] drug information isan informational resource designed to assist licensed healthcare practitioners in caring for their p atients and/or to serve consumers viewing this service as a supplement to, and not a substitute for, the expertise, skill, knowledge and judgment of healthcare practitioners. The absence of a warningfor a given drug or drug combination in no way should be construed to indicate that the drug or drug combination is safe, effective or appropriate for any given patient. [facility] does not assume any responsibility for any aspect of healthcare administered with the aid of information [facility] provides. The information contained herein is not intended to cover all possible uses, directions, precautions, warnings, drug interactions, allergic reactions, or adverse effects. If you have questions about the drugs you are taking, check with your doctor, nurse or pharmacist. Copyright 6618-8128 [employer]. Version: 19.02. Revision Date: 02/08/2024. Education Materials Nausea and Vomiting, Adult Nausea is feeling sick to your stomach or feeling that you are about to throw up (vomit). Vomiting is when food in your stomach is thrown up and out of the mouth. Throwing up can make you feel weak. It can also make you lose too much water in your body (get dehydrated). If you lose too much water in your body, you may: Feel tired. Feel thirsty. Have a dry mouth. Have cracked lips. Go pee (urinate) less often. Older adults and people with other diseases or a weak body defense system (immune system) are at higher risk for losing too much water in the body. If you feel sick to your stomach and you throw up, it is important to follow instructions from your doctor about how to take care of yourself. Follow these instructions at home: Watch your symptoms for any changes. Tell your doctor about them. Follow these instructions to carefor yourself at home. Eating and drinking Take an ORS (oral rehydration solution). This is a drink that is sold at pharmacies and stores. Drink clear fluids in small amounts as you are able, such as: ? Water. ? Ice chips. ? Fruit juice that has water added (diluted fruit juice). ? Low-calorie sports drinks. Eat bland, pdzd-ss-ggofix foods in small amounts as you are able, such as: ? Bananas. ? Applesauce. ? Rice. ? Low-fat (lean) meats. ? [place]. ? Crackers. Avoid drinking fluids that have a lot of sugar or caffeine in them. This includes energy drinks, sports drinks, and soda. Avoid alcohol. Avoid spicy or fatty foods. General instructions Take iuju-zmq-jqavrhz and prescription medicines only as told by your doctor. Drink enough fluid to keep your pee (urine) pale yellow. Wash your hands often with soap and water. If you cannot use soap and water, use hand crude tester. Make sure that all people in your home wash their hands well and often. Rest at home while you get better. Watch your condition for any changes. Take slow and deep breaths when you feel sick to your stomach. Keep all follow-up visits as told by your doctor. This is important. Contact a doctor if: Your symptoms get worse. You have new symptoms. You have a fever. You cannot drink fluids without throwing up. You feel sick to your stomach for more than 2 days. You feel light-headed or dizzy. You have a headache. You have muscle cramps. You have a rash. You have pain while peeing. Get help right away if: You have pain in your chest, neck, arm, or jaw. You feel very weak or you pass out (faint). You throw up again and again. You have throw up that is bright red or looks like black coffee grounds. You have bloody or black poop (stools) or poop that looks like tar. You have a very bad headache, a stiff neck, or both. You have very bad pain, cramping, or bloating in your belly (abdomen). You have trouble breathing. You are breathing very quickly. Your heart is beating very quickly. Your skin feels cold and clammy. You feel confused. You have signs of losing too much water in your body, such as: ? Dark pee, very little pee, or no pee. ? Cracked lips. ? Dry mouth. ? Sunken eyes. ? Sleepiness. ? Weakness. These symptoms may be an emergency. Do not wait to see if the symptoms will go away. Get medical help right away. Call your local emergency services (911 in the [place] Do not drive yourself to the hospital. Summary Nausea is feeling sick to your stomach or feeling that you are about to throw up (vomit). Vomiting is when food in your stomach is thrown up and out of the mouth. Follow instructions from your doctor about eating and drinking to keep from losing too much water in your body. Take wrok-zqh-qfjwjia and prescription medicines only as told by your doctor. Contact your doctor if your symptoms get worse or you have new symptoms. Keep all follow-up visits as told by your doctor. This is important. This information is not intended to replace advice given to you by your health care provider. Make sure you discuss any questions you have with your health care provider. Document Released: 04/05/2009 Document Revised: 02/09/2020 Document Reviewed: 03/28/2019 [employer] Patient Education 2020 [email or web address] General Anesthesia, Adult, Care After This sheet gives you information about how to care for yourself after your procedure. Your health care provider may also give you more specific instructions. If you have problems or questions, contact your health care provider. What can I expect after the procedure? After the procedure, the following side effects are common: Pain or discomfort at the IV site. Nausea. Vomiting. Sore throat. Trouble concentrating. Feeling cold or chills. Weak or tired. Sleepiness and fatigue. Soreness and body aches. These side effects can affect parts of the body that were not involved in surgery. Follow these instructions at home: For at least 24 hours after the procedure: Have a responsible adult stay with you. It is important to have someone help care for you until youare awake and alert. Rest as needed. Do not: ? Participate in activities in which you could fall or become injured. ? Drive. ? Use heavy machinery. ? Drink alcohol. ? Take sleeping pills or medicines that cause drowsiness. ? Make important decisions or sign legal documents. ? Take care of children on your own. Eating and drinking Follow any instructions from your health care provider about eating or drinking restrictions. When you feel hungry, start by eating small amounts of foods that are soft and easy to digest (bland), such as toast. Gradually return to your regular diet. Drink enough fluid to keep your urine pale yellow. If you vomit, rehydrate by drinking water, juice, or clear broth. General instructions If you have sleep apnea, surgery and certain medicines can increase your risk for breathing problems. Follow instructions from your health care provider about wearing your sleep device: ? Anytime you are sleeping, including during daytime naps. ? While taking prescription pain medicines, sleeping medicines, or medicines that make you drowsy. Return to your normal activities as told by your health care provider. Ask your health care provider what activities are safe for you. Take muqa-xqu-xvvfqrf and prescription medicines only as told by your health care provider. If you smoke, do not smoke without supervision. Keep all follow-up visits as told by your health care provider. This is important. Contact a health care provider if: You have nausea or vomiting that does not get better with medicine. You cannot eat or drink without vomiting. You have pain that does not get better with medicine. You are unable to pass urine. You develop a skin rash. You have a fever. You have redness around your IV site that gets worse. Get help right away if: You have difficulty breathing. You have chest pain. You have blood in your urine or stool, or you vomit blood. Summary After the procedure, it is common to have a sore throat or nausea. It is also common to feel tired. Have a responsible adult stay with you for the first 24 hours after general anesthesia. It is important to have someone help care for you until you are awake and alert. When you feel hungry, start by eating small amounts of foods that are soft and easy to digest (bland), such as toast. Gradually return to your regular diet. Drink enough fluid to keep your urine pale yellow. Return to your normal activities as told by your health care provider. Ask your health care provider what activities are safe for you. This information is not intended to replace advice given to you by your health care provider. Make sure you discuss any questions you have with your health care provider. Document Released: 01/24/2002 Document Revised: 10/21/2018 Document Reviewed: 06/03/2018 [email or web address] Patient Education 2020 [employer]. Open Hernia Repair, Adult, Care After These instructions give you information about caring for yourself after your procedure. Your doctormay also give you more specific instructions. If you have problems or questions, contact your doctor. Follow these instructions at home: Surgical cut (incision) care Follow instructions from your doctor about how to take care of your surgical cut area. Make sure you: ? Wash your hands with soap and water before you change your bandage (dressing). If you cannot use soap and water, use hand crude tester. ? Change your bandage as told by your doctor. ? Leave stitches (sutures), skin glue, or skin tape (adhesive) strips in place. They may need to stayin place for 2 weeks or longer. If tape strips get loose and curl up, you may trim the loose edges.Do not remove tape strips completely unless your doctor says it is okay. Check your surgical cut every day for signs of infection. Check for: ? More redness, swelling, or pain. ? More fluid or blood. ? Warmth. ? Pus or a bad smell. Activity Do not drive or use heavy machinery while taking prescription pain medicine. Do not drive until your doctor says it is okay. Until your doctor says it is okay: ? Do not lift anything that is heavier than 10 lb (4.5 kg). ? Do not play contact sports. Return to your normal activities as told by your doctor. Ask your doctor what activities are safe. General instructions To prevent or treat having a hard time pooping (constipation) while you are taking prescription pain medicine, your doctor may recommend that you: ? Drink enough fluid to keep your pee (urine) clear or pale yellow. ? Take hqaz-cfv-mjkjhuo or prescription medicines. ? Eat foods that are high in fiber, such as fresh fruits and vegetables, whole grains, and beans. ? Limit foods that are high in fat and processed sugars, such as fried and sweet foods. Take zgjw-mcg-heslkmv and prescription medicines only as told by your doctor. Do not take baths, swim, or use a hot tub until your doctor says it is okay. Keep all follow-up visits as told by your doctor. This is important. Contact a doctor if: You develop a rash. You have more redness, swelling, or pain around your surgical cut. You have more fluid or blood coming from your surgical cut. Your surgical cut feels warm to the touch. You have pus or a bad smell coming from your surgical cut. You have a fever or chills. You have blood in your poop (stool). You have not pooped in 2 3 days. Medicine does not help your pain. Get help right away if: You have chest pain or you are short of breath. You feel light-headed. You feel weak and dizzy (feel faint). You have very bad pain. You throw up (vomit) and your pain is worse. This information is not intended to replace advice given to you by your health care provider. Make sure you discuss any questions you have with your health care provider. Document Released: 11/08/2015 Document Revised: 02/09/2020 Document Reviewed: 03/31/2017 [email or web address] Patient Education 2020 [email or web address] Additional Information V[employer]INATE! IT SAVES LIVES! Members of the community who have not yet received the COVID-19 vaccine and would like to receive it can visit one of [facility] vaccine clinics. There are many vaccine clinic locations within the [facility]. For locations and available times, please visit [email or web address].[place].[email or web address] It is important to note that some COVID mobile vaccine clinics are held outdoors and may be canceled in rainy or stormy conditions. To learn more about pediatric vaccinations (ages 5-11), we invite you to visit the [facility] webpage. [email or web address]/[email or web address] [email or web address] learn more about the COVID-19 vaccine, we invite you to visit the CDC website for a list of frequently asked questions.https://www.cdc.gov/coronavirus/2019-ncov/vaccines/faq.html [facility] Patient Portal Access Instructions: Stay connected with your healthcare team and access your personal medical information anytime with the [facility] Patient Portal. Please follow the directions below to create your [facility] account: 1.Access the email account you provided upon registration to the hospital/physician office.2.Look for an invitation email from [facility].3.Open the email and access the invitation link: AcceptInvitation to [facility].4.Fill in the required thacker to create your account. To access your account, visit [email or web address]. Click the blue button labeled Access Patient Portal and then log in with the username and password that you created in the steps above. You will be able to view your test results, lab results, a summary of your visits, upcoming appointments and more. There is also a convenient messaging option where you can send secure messages to your p [employer]. In addition, you will have the ability to download any documents or summaries to your computer and/or send the information securely to a physician. Remember that your healthcare information is confidential, so carefully consider who you will allowto register on the [facility] Patient Portal for access to your information. You can also access the [facility] Patient Portal on the [facility] telma. Simply click on Patient Portal and then log into your account. If you would like to receive a full copy of your medical records, please contact the [facility] Medical Records Department by calling [phone], Wednesday through Wednesday between 8 a.m. and 4:30 p.m. HOW TO SAFELY DISPOSE OF PRESCRIPTION MEDICATIONS Please use one of the following methods to safely dispose of your unused medications. 1.Use a drug disposal kit: the drug disposal pouch allows you to safely discard your old and unuseddrugs. Ask your nurse to give you one when you are discharged.2.Visit a local take-back location: Many local pharmacies and police departments have programs that collect old and unwanted prescriptiondrugs. Call your local pharmacy or go to http://bit.ly/0M6Mf3s to find one close to you.3.Make use of household items: Use cat litter or old coffee grounds to dispose medications if other options arenot available. Mix your drugs with these household products, seal them in an airtight container andthrow it into the garbage. Call [facility]: [phone] to be sure your drugs can be disposed of in this way. Some medicines may require a different approach.4.Never flush your medications down the toilet. IF YOU HAVE BEEN PRESCRIBED AN OPIOID FOR PAIN If you have been prescribed an opioid (such as hydrocodone, oxycodone or morphine), it is critical to understand the possible side effects and risks of opioid pain medications. Even when taken as directed, opioids can have several side effects including: Tolerance, meaning you might need to take more of a medication for the same pain relief. Nausea, vomiting and/or constipation. Sleepiness, dizziness, dry mouth, confusion, depression or itching. Physical dependence, meaning you have withdrawal symptoms when a medication is stopped, can develop within a few days. KNOW YOUR RESPONSIBILITIES It is important to know exactly how much and how often to take the opioid pain medications you are prescribed. Never take opioids in higher amounts or more often than prescribed. Do not combine opioids with alcohol or other drugs that cause drowsiness, such as benzodiazepines, also known as benzos, including diazepam and alprazolam, muscle relaxants or sleep aids. Never sell or share prescription opioids. This is illegal. Store opioids in a secure place and out of reach of others (including children, family, friends and visitors). The last page of this document has been signed and retained as a CHART COPY. Signatures Patient Education Materials Nausea and Vomiting, Adult, Gotg-od-Onlk General Anesthesia, Adult, Care After Open Hernia Repair, Adult, Care After, Wrbp-mm-Ozwc Medication Leaflets Exparel, acetaminophen and hydrocodone My discharge plan and instructions have been reviewed and explained to me and I,GOPAL LAMA understand my current condition and have read and understand these discharge instructions. I have received a written copy of the plan/instructions. If I have questions, I am aware that I should contact my d octor. 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 Family's history: negative. Review of Systems Ear/Nose/Mouth/Throat: Negative except as documented in history of present illness. Respiratory: Negative except as documented in history of present illness. Cardiovascular: Negative except as documented in history of present illness. Gastrointestinal: Negative except as documented in history of present illness. Genitourinary: Negative except as documented in history of present illness. Endocrine: Negative except as documented in history of present illness. Musculoskeletal: Negative except as documented in history of present illness. Integumentary: Negative except as documented in history of present illness. Neurologic: Negative except as documented in history of present illness. Health Status Allergies: Allergic Reactions (Selected) NKA, Allergies (1) ActiveSeverityReaction NKANone Documented Current medications: (Selected) Inpatient Medications Ordered LR 1000 mL: 20 mL/hr, Intravenous Prescriptions Prescribed Vitamin D3 50 mcg (2000 intl units) oral capsule: 2,000 unit(s), 1 cap(s), Oral, Daily, 100 cap(s),0 Refill(s) amLODIPine 5 mg oral tablet: 5 mg, 1 tab(s), Oral, qDay, 100 tab(s), 1 Refill(s) atorvastatin 10 mg oral tablet: 10 mg, 1 tab(s), Oral, qDay, 100 tab(s), 1 Refill(s) Documented Medications Documented Metamucil: 5g, Oral, qDay, 0 Refill(s) Vitamin C 250 mg oral tablet: 250 mg, 1 tab(s), Oral, qDay, 30 tab(s), 0 Refill(s), Medications (1) Active Scheduled: (0) Continuous: (1) Lactated Ringers Infusion 1000 mL 1,000 mL, Intravenous, 20 mL/hr PRN: (0) Problem list: Medical Heterozygous familial hypercholesterolemia / SNOMED CT 857787887 / Confirmed Family history of heart disease / SNOMED CT 6462272001 / Confirmed Family history of breast cancer in mother, late 40s / SNOMED CT 1763158666 / Confirmed Family history of heart attack / SNOMED CT 233881806 / Confirmed Family history of early CAD / SNOMED CT 134802228 / Confirmed Grade A1 albuminuria / SNOMED CT 3116689790 / Confirmed History of kidney stones / SNOMED CT 7399622638 / Confirmed Hypertension / SNOMED CT 3625828437 / Confirmed Influenza vaccination declined / SNOMED CT 563698481 / Confirmed Morbid obesity / SNOMED CT 845596323 / Confirmed Palpitations / SNOMED CT 804914687 / Confirmed History of breast biopsy, left, in , benign results / SNOMED CT 7281636072 / Confirmed Encounter for annual routine gynecological examination / SNOMED CT 659450003 / Confirmed Weight loss counseling, encounter for / SNOMED CT 831166205 / Confirmed Pure hypercholesterolemia / SNOMED CT 970241279 / Confirmed Right flank pain / SNOMED CT 406025047 / Confirmed COVID-19 vaccination declined / SNOMED CT 0573934167 / Confirmed Loud snoring / SNOMED CT 329083945 / Confirmed Umbilical hernia / SNOMED CT 8980942618 / Confirmed Vitamin D insufficiency / SNOMED CT 72381525 / Confirmed Canceled: BMI 39.0-39.9,adult / SNOMED CT 970154707 Canceled: Cervical cancer screening / SNOMED CT 5605525253 Canceled: High cholesterol / SNOMED CT 8479427881 Canceled: HTN - Hypertension / SNOMED CT 0820447462 Canceled: HTN (hypertension) / SNOMED CT 8512113426 Canceled: Breast cancer screening / SNOMED CT 735657580 Canceled: Colon cancer screening / SNOMED CT 004044061 Canceled: Severe obesity (BMI 35.0-39.9) with comorbidity / SNOMED CT 0611986050 Canceled: Weight loss due to medication / SNOMED CT 745415647, Active Problems (20) COVID-19 vaccination declined Encounter for annual routine gynecological examination Family history of breast cancer in mother, late 40s Family history of early CAD Family history of heart attack Family history of heart disease Grade A1 albuminuria Heterozygous familial hypercholesterolemia History of breast biopsy, left, in , benign results History of kidney stones Hypertension Influenza vaccination declined Loud snoring Morbid obesity Palpitations Pure hypercholesterolemia Right flank pain Umbilical hernia Vitamin D insufficiency Weight loss counseling, encounter for Histories Past Medical History: No active or resolved past medical history items have been selected or recorded. Family History: Breast cancer Mother Hypertension Mother Father Heart disease Mother Father Grandparent Heart attack Father Comments: 12/15/2023 10:02 Lucy Garcia LPN Open heart surgery 11/30/23 Cardiac arrest Father Diabetes Father Grandparent Procedure history: Colonoscopy ([id number]) in 1994 at 19 Years. Wrist ([id number]). Comments: 05/24/2024 8:38 Lorie Disla LPN EXCISION 2 CYST 12/14/2022 9:03 Yolanda Marie RN left Left breast ([id number]). Comments: 12/14/2022 9:03 Yolanda Marie RN biopsy section ([id number]). Social History: Social & Psychosocial Habits Alcohol 07/13/2024 Use: Current Frequency: 1-2 times per year Substance Abuse 07/13/2024 Use: Never Tobacco 07/13/2024 Tobacco Use: Never (less than 100 in l Home/Environment 07/13/2024 Living situation: Home/Independent Other risks in environment: no smoke exposure Domestic Concerns None Primary Site Interpreter: Self Current Home Treatments None Special Services and Community Resources None Spouse Name Ki Marital Status of Patient if Patient Independent Adult: Nutrition/Health 07/13/2024 Type of diet: Regular Caffeine intake amount: 2-4 beverages a week Appetite Good Eating Difficulties None Physical Examination Vital Signs 07/13/2024 11:03 EDT Temperature Temporal Artery 36.3 DegC Peripheral Pulse Rate 92 bpm Respiratory Rate 16 br/min Systolic Blood Pressure Non-Invasive 144 mmHg HI Diastolic Blood Pressure Non-Invasive 94 mmHg HI Vital Signs (last 24 hrs) Last Charted Temp Apmnxfpi95.3 DegC (JUL 13 11:03) SBPH 144 mmHg (JUL 13 11:03) DBPH 94 mmHg (JUL 13 11:03) Measurements from flowsheet : Measurements 07/13/2024 11:03 EDT Height 175 cm Height in inches 68.9 inch(es) Admission Weight 118.8 kg Weight Lbs 261.4 lb Woodland Body Weight 65.96 kg Admission Body Mass Index 38.79 m2 Pain assessment: Pain Assessment 07/13/2024 11:03 EDT Primary Pain Intensity 0 Pain Scale Type 0-10 Pain scale . General: Alert and oriented. Airway: Normal neck range of motion. Mallampati classification: II (soft palate, fauces, uvula visible). Head: Normocephalic. Dentition Evaluation: Intact, Own teeth. Neck: Full range of motion. Respiratory: Lungs are clear to auscultation. Cardiovascular: Normal rate. Heart Sounds: Normal. Gastrointestinal: Soft. Musculoskeletal Normal range of motion. Integumentary: Intact, Warm, Dry. Neurologic: Alert, Oriented. Review / Management Results review: No qualifying data available , Lab results 07/13/2024 11:44 EDT Urinary Elimination Voiding, no difficulties IV Present Present CHG Preoperative Wash/Wipe Site specific wipe Preop Nasal Swab Povidone-Iodine CHG Skin Prep Completed for Eligible Surgery Belongings At Bedside Pants, Shirt, Shoes, Socks, Undergarments 07/13/2024 11:43 EDT SN - Preop - CTm Pt Ready for OR/Proced 07/13/2024 11:43 07/13/2024 11:35 EDT gabapentin 300 mg mg ibuprofen 800 mg mg Dextrose 5% in Water 250 mL mL 07/13/2024 11:28 EDT Cardiac Rhythm Sinus rhythm Respirations Unlabored Respiratory Pattern Regular Breath Sounds Auscultated Anterior and posterior All Lobes Breath Sounds Clear Abdomen Description Distended, Soft Abdomen Palpation Non-Tender Skin Temperature Warm Skin Description [place], Normal for ethnicity, Dry Skin Integrity Intact Extremity Movement Equal Characteristics of Speech Clear Level of Consciousness Alert Strength All Extremities Strong Tone All Extremities Normal Sensation All Extremities Intact Affect/Behavior Appropriate, Calm, Cooperative Orientation Oriented x 4 Lexis Motor (2) Moves 4 extremities voluntarily or on command Lexis Respirations (2) Spontaneous respiration without support, RR > 10 Lexis Blood Pressure (2) BP 20% above or below preanesthetic level Lexis Pulse (2) Pulse 20% above or below preanesthetic level Lexis Oxygen Saturation (2) 94% or more Lexis Level of Consciousness (2) Fully awake Lexis III Score 12 Positioning Repositions self Standard Safety ID band on, Call device within reach, Bed in low position, Wheels locked, Safety level maintained 07/13/2024 11:27 EDT Continuous IV Infusions LR Hand Right 07/13/2024 20 gauge Peripheral IV Activity: Insert new site Peripheral IV Dressing Condition: Clean, Dry, Intact Peripheral IV Dressing Activity: Applied, Transparent dressing Peripheral IV Line Status/Patency: Continuous infusion Peripheral IV Site Condition: No complications Peripheral IV Equipment: Extension set, PRN Adaptor Peripheral IV Number of Attempts: 2 07/13/2024 11:26 EDT Test Urine Negative test (u) int test (u) int Lactated Ringers Injection Begin Bag 1,000 mL mL QC PRGUN Negative QC PRGUP Positive 07/13/2024 11:04 EDT Allergies No Library Helper On Yes Consent Form Signed Yes Patient Dressed In Hospital gown CHG Preoperative Wash/Wipe Night before procedure, Day of procedure CHG Skin Prep In Error (In Error) History & Physical On Chart Yes Obstructive Sleep Apnea Assess Completed Yes NPO Status Maintained Patient ID Band on and Verified Yes Implants Verified Yes Pacemaker/AICD Verified Yes Site Verified by Patient/Family Yes Blood Consent Signed Yes Last Fluid Intake 07/12/2024 23:00 Last Food Intake 07/12/2024 23:00 Last Void 07/13/2024 10:50 07/13/2024 11:03 EDT Height 175 cm Height in inches 68.9 inch(es) Admission Weight 118.8 kg Weight Lbs 261.4 lb [place] Body Weight 65.96 kg Admission Body Mass Index 38.79 m2 Temperature Temporal Artery 36.3 DegC Peripheral Pulse Rate 92 bpm Respiratory Rate 16 br/min Systolic Blood Pressure Non-Invasive 144 mmHg HI Diastolic Blood Pressure Non-Invasive 94 mmHg HI Primary Pain Intensity 0 Pain Scale Type 0-10 Pain scale Heart Rhythm Regular Oxygen Therapy Room air Oxygen Saturation 97 % 07/13/2024 10:59 EDT Designated Person #1 We May Share PHI Ki Lama [phone] Designated Person #1 Relationship Spouse Privacy Restrictions Requested None Status No, per patient Sensory Deficits None Sleep Apnea Snore Yes Sleep Apnea Tired No Sleep Apnea Obstruction No Sleep Apnea Pressure Yes Sleep Apnea BMI Yes Sleep Apnea Age Yes Sleep Apnea Neck No Sleep Apnea Gender No Sleep Apnea Score 4 Diagnosed With Sleep Apnea No Advanced Directives No - refuses information Infectious Disease Symptoms Patient states no symptoms Infectious Disease Recent Exposure No Alcohol and Drug Use No Employee of Institutional Living No Health Care Employee No History of Exposure to TB No History of Positive Chest X-Ray for TB No History of Positive TB Skin Test No Homeless No Known Immunosuppression No Recent Immigrant No Resident of Institutional Living No Bloody Sputum No Fatigue No Fever No Loss of Appetite No Night Sweats No Persistent Cough > 3 Weeks No Weight Loss No Pre-Op Patient Education NPO after midnight, No makeup, No jewelry, Responsible Alliance Party, Aware of surgery location, Pre-op education done, 1 bottle CHG wash with instructions given, No ordered medications, SSI prevention handout given SN - Preprocedure Comments Spoke with patient, Verbalizes/Nonverbally indicates understanding Barriers to Learning None evident Teaching Method Explanation Preferred Spoken Language Latvian Preferred Written Language Latvian Teaching Evaluation Verbalizes/Nonverbally indicates understanding Safety Brochure Information Reviewed Yes [facility] Video Viewed Yes Information Given by Patient Patient's Current Physicians Patient's Current Physicians Discharge To, Anticipated Home independently Prev Test Positive/Diagnosis w/COVID-19 No Current Quarantine/Isolated any Illness No Any Contact with Sick Animals/Birds No Traveled Anywhere in Last 30 Days No Lost Weight Unintentionally Recently No Eat Poorly Due to Decreased Appetite No Total MST Score 0 No Personal Devices, Patient Valuables None Anesthesia/Transfusions Prior anesthesia Admission Note-Nursing Same Day Patient History 07/13/2024 10:56 EDT SN - Preop - CTm Pt [facility] Room 07/13/2024 10:56 . Assessment and Plan [place] [employer] Anesthesiologists (ASA) physical status classification: Class II. Anesthetic Preoperative Plan Premedication: intravenous. Anesthetic technique: General. Induction: intravenously. Maintenance airway: Oral endotracheal tube. Postoperative pain management: Per surgeon. Risks discussed: nausea, vomiting, headache, sore throat, dental injury, hypotension, allergic reaction, serious complications. Informed consent: signed by patient. Digitally Signed by ASH NAVASCOMPUTER HARDWARE DESIGNER on 07/13/2024 11:57 AM [facility]08-22-2024 NoteSinus rhythm Electronic Signature: FERNANDO GAUTHIER MD 06/22/2024 22:58:41[facility] Consult note Author Francisco Rivera [facility] Note Date/Time May 16, 2025 4:58 pm [facility] Medical Records Department [address] [place] [address] Anesthesia Postop Eval I 05/16/25 1602 MR#: [id number] Acct: [id number] Name: GOPAL LAMA Rep #:[id number] : 1975 49 From: Francisco dickson CRNA PCP: Dr. Huy Donald, DO Status:[facility] Y Race: C Location: [place] [address] Anesthesia: Postop Eval I Current Vital Signs Temperature: 99.0 F Pulse Rate: 86 Blood Pressure: 136/83 Respiratory Rate: 18 Pulse Ox: 96 Oxygen Delivery Method: Room Air Assessment Airway patent: Yes Spontaneous unlabored respirations: Yes Mental status: Awake and Calm nausea: No Vomiting: No Anesthesia Complication: No Fluid Hydration Crystalloid volume administer (ml): 900 Total IV fluid infused: 900 Progress Note Anesthesia document: Postop Eval 1 completed: Yes 05/16/251601 <Electronically signed by Francisco Brannon CRNA> Date _ Francisco Rivera CRNA Cosigner Signature: Date CC: ~ Signed [facility] Work Phone: Discharge summary Author Neeraj Smith [facility] Note Date/Time May 16, 2025 4:58 pm [facility] Medical Records Department [address] [place] [address] Instructions for Home/Discharge Instructions 05/16/25 1546 MR#: [id number] Acct: [id number] Name: GOPAL LAMA Rep #:[id number] : 1975 49 From: Neeraj Smith MD PCP: Dr. Huy Donald, Status:REG SDC Discharge Instructions DC O2, CPAP, BIPAP needs Home O2 Discharge instructions: No Dressing / Incision Discharge Activity: Return to Normal Activity and May Not Drive (while taking narcotic pain medications.) Dressing / Incision Call your doctor if you observe: Fever of 101 or Higher Follow Up Care Please Follow Up With: Neeraj Smith MD When: Call [phone] for an appointment Test Results: Test results from this visit will be discussed in further detail at your follow- up appointment, if applicable. Discharge Plan Admission Primary Reason for Your Visit: kidney stone Attending Provider: Neeraj Smith Primary Care Provider: Huy Donald Instructions Print Language: Latvian Discharge Orders/Prescriptions Prescriptions: New oxycodone 5 mg tablet 5 mg PO Q6H PRN (Reason: pain) 3 Days Qty: 14 0RF ciprofloxacin HCl [Cipro] 500 mg tablet 500 mg PO BID Qty: 6 0RF Continued atorvastatin 10 mg tablet 10 mg PO DAILY amlodipine 5 mg tablet 5 mg PO DAILY cholecalciferol (vitamin D3) 50 mcg (2,000 unit) capsule 50 mcg PO DAILY psyllium husk [Daily Fiber] 0.4 gram capsule 0.8 g PO DAILY oxycodone-acetaminophen 5-325 mg tablet 1 tab PO Q6H PRN PRN (Reason: pain) Referrals / Follow Up: Neeraj Smith MD [Med Staff - Active Staff] - Care Physician,No Primary [Non-Staff] - Disposition Disposition (needs filled in before D/C Order can be placed): Home, Self Care 05/16/25 1546<Electronically signed by Neeraj Smith MD>Neeraj Smith MD CC: Dr. Huy Donald, DO ~ Signed [facility] Work Phone: Evaluation + Plan note Future Appointments Appointment Date:07/13/2023 04:00:00 PM Scheduled Provider:HUY DONALD DO Location:[facility] Appointment Type:PC OV Future Scheduled Tests Laboratory* Pathology Forestry Worker Request 01/21/23 [facility] Evaluation + Plan note Future Appointments Appointment Date:07/13/2023 04:00:00 PM Scheduled Provider:HUY DONALD DO Location:[facility] Appointment Type:PC OV Diagnostic Tests Pending * HPV Screen, DNA Probe 01/21/23 Future Scheduled Tests Laboratory* LDL-Cholesterol, Direct 01/22/23 * Lipid Profile 01/22/23 [facility] Evaluation + Plan note Future Appointments Appointment Date:07/13/2023 04:00:00 PM Scheduled Provider:HUY DONALD DO Location:[facility] Appointment Type:PC OV Diagnostic Tests Pending * LDL-Cholesterol, Direct 07/09/23 [facility] Evaluation + Plan note Future Appointments Appointment Date:10/15/2023 10:00:00 AM Scheduled Provider:HUY DONALD DO Location:[facility] Appointment Type:PC OV Future Scheduled Tests Laboratory* LDL-Cholesterol, Direct 07/16/23 * Urinalysis Microscopic 07/16/23 * Lipid Profile 07/16/23 * Complete Metabolic Panel 07/16/23 [facility] Evaluation + Plan note Future Appointments Appointment Date:10/15/2023 10:00:00 AM Scheduled Provider:HUY DONALD DO Location:[facility] Appointment Type:PC OV Diagnostic Tests Pending * LDL Cholesterol (Direct) 10/07/23 Future Scheduled Tests Laboratory* Urinalysis Microscopic 07/16/23 [facility] evaluation + Plan note Future Appointments Appointment Date:03/22/2024 10:30:00 AM Scheduled Provider:HUY DONALD DO Location:[facility] Appointment Type:PC OV Future Scheduled Tests Laboratory* Urinalysis Microscopic 07/16/23 Radiology* NM Myocardial Spect Rest/Stress 01/03/24 * CT Coronary Calcium Score w/o Contrast 01/03/24 [facility] Evaluation + Plan note Future Appointments Appointment Date:05/25/2024 01:30:00 PM Scheduled Provider:SOFIA MARCUS MD Location:[facility] Appointment Type:GS CHANNEL MACHINE OPERATOR Appointment Date:07/04/2024 09:00:00 AM Scheduled Provider:HUY DONALD DO Location:[facility] Appointment Type:PC OV Future Scheduled Tests Laboratory* Urinalysis Microscopic 07/16/23 Radiology* NM Myocardial Spect Rest/Stress 01/03/24 * CT Coronary Calcium Score w/o Contrast 01/03/24 [facility] Evaluation + Plan note Future Appointments Appointment Date:06/26/2024 03:20:00 PM Scheduled Provider:SOFIA MARCUS MD Location:[facility] Appointment Type: OV Pre Op Appointment Date:07/04/2024 09:00:00 AM Scheduled Provider:HUY DONALD DO Location:[facility] [facility] Appointment Type:PC OV Appointment Date:07/20/2024 01:30:00 PM Scheduled Provider:SOFIA MARCUS MD Location:[facility] Appointment Type: OV Post Op Future Scheduled Tests Laboratory* Urinalysis Microscopic 07/16/23 Radiology* NM Myocardial Spect Rest/Stress 01/03/24 * CT Coronary Calcium Score w/o Contrast 01/03/24 [facility] Evaluation + Plan note Future Appointments Appointment Date:07/20/2024 01:30:00 PM Scheduled Provider:SOFIA MARCUS MD Location:[facility] Appointment Type:GS OV Post Op Appointment Date:12/25/2024 09:00:00 AM Scheduled Provider:HUY DONALD DO Location:[facility] Appointment Type:PC OV Future Scheduled Tests Laboratory* Urinalysis Microscopic 07/16/23 * Reticulocytes (AO) 07/04/24 * Bilirubin Urine 07/04/24 * Lipid Profile 07/04/24 * Indirect Bilirubin - Panel 07/04/24 * Vitamin D Level 07/04/24 * Complete Metabolic Panel 07/04/24 * [facility] Lab Send out (Blood Specimens) 07/04/24 Radiology* NM Myocardial Spect Rest/Stress 01/03/24 * CT Coronary Calcium Score w/o Contrast 01/03/24 [facility] Evaluation + Plan note Future Appointments Appointment Date:12/25/2024 09:00:00 AM Scheduled Provider:HUY DONALD DO Location:[facility] Appointment Type:PC OV Future Scheduled Tests Radiology* NM Myocardial Spect Rest/Stress 01/03/24 * CT Coronary Calcium Score w/o Contrast 01/03/24 [facility] Evaluation + Plan note Future Appointments Appointment Date:05/15/2025 09:30:00 AM Scheduled Provider:HUY DONALD DO Location:[facility] Appointment Type:PC OV Future Scheduled Tests Laboratory* Lipoprotein (a) 03/06/25 * Apolipoprotein B 03/06/25 * TSH with Reflex to FT4 03/06/25 * Lipid Profile 03/06/25 [facility] Evaluation note* Diagnosis Family history of ischemic heart disease and other diseases of the circulatory system Essential (primary) hypertension Unspecified essential hypertension Palpitations documented in this encounter [facility] Work Phone: Evaluation noteNo assessment information available [facility] Work Phone: History and physical note Author Neeraj Smith [facility] Note Date/Time May 16, 2025 4:58 pm [facility] Medical Records Department [address] [place] [address] History & Physical Exam 05/16/25 1546 MR#: [id number] Acct: [id number] Name: GOPAL LAMA LG Rep #:[id number] : 1975 49 From: Neeraj Smith MD PCP: Dr. Huy Donald, DO Status:[facility] Location: [place] [address] HPI - General General Date of Service: 05/16/25 Chief Complaint: Right ureteral calculi HPI Narrative GOPAL LAMA, is a 49 F who presents for treatment of a right kidney stone with shockwave lithotripsy and stent placement PFSH Medical History (Updated 05/16/25 @ 15:[address] Neeraj Smith MD) Kidney stones Non-smoker Hypertension Home Medications ?Medication ?Instructions ?Recorded ?Last Taken ?Type amlodipine 5 mg tablet 5 mg PO DAILY 05/14/25 Unkno wn History atorvastatin 10 mg tablet 10 mg PO DAILY 05/14/25 Unkn own History cholecalciferol (vitamin D3) 50 50 mcg PO DAILY Unknown History mcg (2,000 unit) capsule oxycodone-acetaminophen 5 mg-325 1 tab PO Q6H PRN PRN pain 05/14/25 Unknown History mg tablet psyllium husk 0.4 gram capsule 0.8 g PO DAILY 05/14/25 Unknown History (Daily Fiber) ciprofloxacin HCl 500 mg tablet 500 mg PO BID #6 tabs 05/16/25 Unknown Rx (Cipro) oxycodone 5 mg tablet 5 mg PO Q6H PRN pain 3 days #14 05/16/25 Unknown Rx tabs Allergy/AdvReac Type Severity Reaction Status Date / Time No Known Allergies Allergy Verified 05/16/25 13:49 Surgical History (Updated 05/14/25 @ 12:14 by Louann Ryan) Hx of removal of cyst Hx of section Hx of hernia repair Social History Smoking Status: Never smoker Vital Signs Vital Signs Vital Signs: 05/16/25 13:52 05/16/25 13:52 05/16/25 14:41 Temperature 98.4 F 98.4 F Temperature Source Temporal Pulse Rate 74 74 Respiratory Rate 18 18 Respiratory Pattern Normal Blood Pressure 136/92 H 136/92 H Blood Pressure Mean 106 Blood Pressure Source Monitor Blood Pressure Position Sitting Blood Pressure Location Left Forearm Pulse Ox 100 100 Oxygen Delivery Method Room Air Room Air Weight Weight: 125 kg Body Mass Index (BMI) 40.6 Results Lab / Micro Data Labs: Laboratory Results - last 24 hr 05/16/25 13:00: Urine Test Negative Imaging Radiology Impression Abdomen X-Ray 05/16/25 12:47 IMPRESSION: Probable bilateral nephrolithiasis. Reading [facility] 05/16/25 0246 <Electronically signed by Neeraj Smith MD> Cosigner Signature (if applicable): CC: Dr. Neeraj Smith MD; Dr. Huy Donald, DO~ Signed [facility] Work Phone: Hospital course Narrative No data available for this section [facility] Hospital Discharge instructions No data available for this section [facility] Progress note No data available for this section [facility] Reason for referral (narrative)No reason for referral information [facility] Work Phone: Summary note* KRIS Garg: PERFORM Event Display: Patient Summary Documents Authored Date: [id number] [facility] Summary Purpose Family History No Family History Records Found No data available for this section No data available for this section No data available for this section No data available for this section No Family History Records Found No data available for this section No data available for this section No Family History Records Found No data available for this section No data available for this section No data available for this section No Family History Records FoundNo Family History Records Found Advance Directives Advance Directive Response Recorded Date/ Time Do you have a Healthcare Power of Molded Goods Inspector Trimmer? No May 14, 2025 12:15pm Reason for Referral Specialty Diagnoses / Procedures Referred By Contac t Referred To Contact Radiology Diagnoses Family history of ischemic heart disease and other diseases of the circulatory system Essential (primary) hypertension Palpitations Procedures CT cardiac scoring wo IV contrast Marie Garg, TEMPERATURE CONTROL INSPECTOR-CYCLE DIRECTOR [address] [facility] [address] [place] [address] Referral ID Status Reason Start Date Expiration Date Visits Requested Visits Authorized [id number] Pending Review Perform Procedure 01/04/2024 01/03/2025 1 1 Chief Complaint and Reason for Visit Chief Complaint Admit Date KUB May 14, 2025 10:5 3am Additional Source Comments INFORMATION SOURCE (unrecogn ized section and content) DATE CREATED AUTHOR 01/23/2022 [facility] DATE CREATED AUTHOR AUTHOR'S ORGANIZ ATION 03/16/[address] [facility] DATE CREATED AUTHOR AUTHOR'S ORGANIZ ATION 06/26/2024 [facility] ([place]) DATE CREATED AUTHOR AUTHOR'S ORGANIZ ATION 05/11/2025 [facility] DATE CREATED AUTHOR AUTHOR'S ORGANIZ ATION 05/12/2025 [facility] Patient Care team informatio n (unrecognized section and content) Refrigeration System Installer Relationship Specialty Start Date End Date Marie Garg APRN-CYCLE DIRECTOR [address] [facility] [address] [place], [place] [id number] PCP - General Family Medicine 02/12/24 Team Status: Active Member Role/Relationship Status Dates Dr. Huy Donald DO Primary Care Provider Active Team Status: Active Member Role/Relationship Status Dates No Primary Care Physician Primary Care Provider Active Start: May 14, 2025 Dr. Neeraj Smith MD Attending Provider Active Start: May 14, 2025 Dr. Neeraj Smith MD Referring Provider Active Start: May 14, 2025 Team Status: Inactive Member Role/Relationship Status Dates Dr. Neeraj Smith MD Attending Provider Active Start: May 16, 2025 End: May 16, 2025 Dr. Neeraj Smith MD Referring Provider Active Start: May 16, 2025 End: May 16, 2025 Dr. Huy Donald , Primary Care Provider Active Start: May 16, 2025 End: May 16, 2025 Reason for Visit (unrecogniz ed section and content) Specialty Diagnoses / Procedures Referred By Contac t Referred To Contact Radiology Diagnoses Family history of ischemic heart disease and other diseases of the circulatory system Essential (primary) hypertension Palpitations Procedures CT cardiac scoring wo IV contrast Marie Garg, GENNARO-CYCLE DIRECTOR [address] [place] [facility] [address] [place] [address] Referral ID Status Reason Start Date Expiration Date Visits Requested Visits Authorized [id number] Pending Review Perform Procedure 01/04/2024 01/03/2025 1 1 FOR RECORDS PERTAINING TO PATIENTS WHO ARE OR HAVE BEEN ENROLLED IN A CHEMICAL DEPENDENCY/SUBSTANCEABUSE PROGRAM, SOME INFORMATION MAY BE OMITTED. This clinical summary was aggregated from multiple sources. Caution should be exercised in using it in the provision of clinical care. This summary normalizes information from multiple sources, and as a consequence, information in this document may materially change the coding, format and clinical context of patient data. In addition, data may be omitted in some cases. CLINICAL DECISIONS SHOULD BE BASED ON THE PRIMARY CLINICAL RECORDS. [facility] provides no warranty or guarantee of the accuracy or completeness of information in this document.
== END 2025-05-16 16:58 | disposition home or self-care (01) ==
LOC: SDC 12:44 → AC 12:46
PROVIDERS: Anesthesiology; Referring Provider Urology; Visit Provider Urology
PROC: (CPT 50590; principal; 2025-05-16 14:35)
DX: N20.1 Calculus of ureter (principal); I10 Essential (primary) hypertension; Z79.891 Long term (current) use of opiate analgesic; Z79.899 Other long term (current) drug therapy
CPT/HCPCS: 52332; 00873; 74019; 81025; C1769; C2617

== ENCOUNTER → 2025-07-05 | Outpatient (CLI) | payer OTHER, SELFPAY ==
--- NOTE | 2025-07-05 08:35 | CT_ITS ---
PROCEDURE: ABDOMEN/PELVIS WITHOUT CONT 07/05/2025 REASON FOR EXAM: CALCULUS OF KIDNEY Right flank pain. Recent lithotripsy. TECHNIQUE: Procedure Code: CTABDPEL Modality: CT Procedure: ABDOMEN/PELVIS WITHOUT CONT Noncontrast technique limits evaluation of the abdominal and pelvic viscera. Coronal and Sagittal reconstruction series were provided. One or more dose reduction techniques were used (e.g., Automated exposure control, adjustment of the mA and/or kV according to patient size, use of iterative reconstruction technique). RADIATION DOSE SUMMARY: CTDlvol: 23.67 mGy DLP: 1330.64 mGycm COMPARISON: None FINDINGS: Lung bases: The lung bases are clear. Liver: Diffuse fatty infiltration. Mild hepatomegaly. Gallbladder: Unremarkable Spleen: Borderline splenomegaly. Pancreas: Normal size. No surrounding inflammation. Adrenals: Unremarkable Kidneys: 6 mm nonobstructive calculus in the lower pole calyx of the left kidney. Right perirenal cyst. Bladder: The bladder is empty. Reproductive Organs: Normal uterine size and contour. Ovaries are unremarkable. Bowel: No bowel obstruction. Appendix: The appendix is not identified. There is no inflammatory process identified in the right lower quadrant to suggest appendicitis. Lymph nodes: No suspicious lymph node enlargement. Vasculature: The abdominal aorta and IVC contours are normal. Noncontrast technique limits evaluation. Peritoneum / Retroperitoneum: Unremarkable Bones: Mild degenerative changes. CT/Abdomen/Pelvis without Cont IMPRESSION: Hepatomegaly. Diffuse fatty infiltration of the liver. Borderline splenomegaly. Nonobstructive calculus in the lower pole calyx of the left kidney. No evidenc e of ureteral obstruction. Reading Location: [id number]
== END | disposition home or self-care (01) ==
PROVIDERS: Referring Provider Urology; Visit Provider Urology
DX: N20.2 Calculus of kidney with calculus of ureter (principal)
CPT/HCPCS: 74176